=== PATIENT | female | born 1950 | race Caucasian/White ===

== ENCOUNTER → 2016-08-20 08:58 | Day surgery (SDC) | payer OTHER ==
[~2016-08-20 08:58] MED LIST: Acetaminophen TAB* 325 MG PO PRN; Buffered Lidocaine 1% SYR 3ML* 3 ML/SYR SYRINGE INTRADERM ONE; Buffered Lidocaine 1% SYR 3ML* 3 ML/SYR SYRINGE ONE; Cyclopentolate 1% OPTH.SOL* 2 ML BTL ONE; Flurbiprofen 0.03% OPTH.SOL* 2.5 ML BTL ONE; Lidocaine 1% MPF* 2 ML VIAL ONE; Midazolam* 1 MG/ML 2 ML VIAL (2 MG) ONE; Neomycin/Polymy/Dex OPHTH.OIN* 3.5 GM ONE; Phenylephr/Ketorolac 1%/0.3% OPH DROP BTL ONE; Phenylephrine 2.5% OPTH.SOL* 2 ML BTL ONE; Proparacaine 0.5% OPHTH.SOL* 15 ML BTL ONE; Tetracaine 0.5% OPTH.SOL 4 ML* 1 DROP BTL ONE; Tropicamide 1% OPTH.SOL* BTL ONE; fentaNYL* 50 MCG/ML 2 ML VIAL (100 MCG VIAL) ONE
[2016-08-20 10:47] VITALS: BP 85/53
--- NOTE | 2016-08-20 11:18 | OP ---
DATE OF OPERATION: 08/20/2016 LOCATED WITHIN [facility] DATE OF : 1950. SURGEON: Dr. Marty Liao. COUNTRY MANAGER: None. ANESTHESIOLOGIST: Ventura Gumsan MD ANESTHESIA: Topical with intravenous sedation. PRE-OP DIAGNOSIS: Cataract, right eye. POST-OP DIAGNOSIS: Cataract, right eye. OPERATIVE PROCEDURE: Phacoemulsification and cataract extraction with posterior chamber intraocular lens implant, right eye. COMPLICATIONS: None. BLOOD LOSS: None. DESCRIPTION OF PROCEDURE: The patient was brought to the operating room and received a small amount of intra-venous sedation. A drop of Tetracaine was placed in her right eye. She was prepped and draped in the usual sterile fashion for ophthalmic surgery and attention was directed to the right eye where a speculum was placed. A paracentesis was created at the 11 o'clock position and 0.1 cc of 1 percent preservative-free Lidocaine was injected into the anterior chamber followed by DisCoVisc. The eye was digitally stabilized while a 2.75 mm keratome was used to create a triplanar clear corneal incision at the 9 o'clock position. A continuous curvilinear capsulorrhexis was created with a cystotome and Utrata forceps. BSS on a cannula was used to hydrodissect the lens from the capsule. Phacoemulsification was performed in a divide-and- conquer technique to create four fragments which were removed. Residual cortical material was removed with irrigation and aspiration. DisCoVisc was used to inflate the capsular bag and an SN60AT 22.0 diopter lens was folded and inserted into the capsular bag. DisCoVisc was removed using irrigation and aspiration. BSS on a cannula was used to hydrate the corneal stroma and seal the wound. At the end of the case the pupil was round and the lens was centered. The eye was of normal pressure and the wound was water tight. The speculum was removed and topical Maxitrol ointment was placed on the surface of the eye. The eye was closed, patched and shielded and the patient was sent to the recovery room in stable condition with post operative instructions and follow-up appointment given. [id number] #: [id number] MTDD
== END | disposition home or self-care (01) ==
LOC: OREAST 08:58
PROVIDERS: ATTEND Ophthalmology
DX: H25.21 Age-related cataract, morgagnian type, right eye (principal); J44.9 Chronic obstructive pulmonary disease, unspecified; I25.10 Atherosclerotic heart disease of native coronary artery without angina pectoris; M15.0 Primary generalized (osteo)arthritis; I48.0 Paroxysmal atrial fibrillation; I25.2 Old myocardial infarction
CPT/HCPCS: A9270-GY; C9447; J2250; J3010; V2632

== ENCOUNTER 2017-06-02 13:36 | Inpatient (IN) | payer OTHER ==
[2017-06-02 15:25] LABS: Hematocrit 33 % (35-47); Hemoglobin 10.9 g/dl (12.0-16.0); Mean Corpuscular HGB Conc 33 g/dl (31-36); Mean Corpuscular Hemoglobin 30 pg (27-31); Mean Corpuscular Volume 91 fL (80-97); Mean Platelet Volume 7 um3 (7.4-10.4); Red Blood Count 3.62 10^6/ul (4.0-5.4); Red Cell Distribution Width 15 % (10.5-15); White Blood Count 5.4 10^3/ul (3.5-10.8)
[2017-06-02 15:32] LABS: Urine Bacteria Absent (Absent); Urine Bilirubin Negative (Negative); Urine Glucose Negative (Negative); Urine Nitrite Negative (Negative)
[2017-06-02 15:38] LABS: ALT 15 U/L (7-52); AST 19 U/L (13-39); Alkaline Phosphatase 60 U/L (34-104); Anion Gap 7 mmol/L (2-11); BUN/Creatinine Ratio 16.5 (8-20); Blood Urea Nitrogen 14 mg/dL (6-24); CO2 Carbon Dioxide 34 mmol/L (22-32); Calcium 9.3 mg/dL (8.6-10.3); Chloride 91 mmol/L (101-111); EGFR African American 86.6 (>60); EGFR Non-African American 67.3 (>60); Globulin 2.7 g/dL (2-4); Glucose 106 mg/dL (70-100); Potassium 3.7 mmol/L (3.5-5.0); Sodium 132 mmol/L (133-145); Total Protein 6.7 g/dL (6.4-8.9)
[2017-06-02 15:42] LABS: Benzodiazepine Urine Screen None Detected (None Detect)
[2017-06-02 16:14] LABS: TSH (Thyroid Stimulating Horm) 2.18 mcIU/mL (0.34-5.60)
[2017-06-02 16:15] LABS: Acetaminophen < 15 mcg/mL; Alcohol < 10 mg/dL (<10); Salicylate < 2.50 mg/dL (<30)
[2017-06-02] MEDS ORDERED: cefTRIAXone(*) 1 GM in NS 0.9% 50 ML* 50 ML IVPB ONE (16:46)
[2017-06-02] MEDS ORDERED: NS 0.9% 1000 ML* 1,000 ML IV ONE (16:49)
--- NOTE | 2017-06-02 17:25 | RAD ---
INDICATION: Cough, shortness of breath, back pain. COMPARISON: November 14, 2016 TECHNIQUE: Dual energy PA and routine lateral views of the chest were obtained. REPORT: Mild prominence of interstitial markings similar to the prior exam. Patchy rarefaction of the upper lung zone interstitial markings. Elevated lung volumes with increased AP thoracic diameter. No alveolar consolidation, focal pulmonary lesion, pleural effusion, pneumothorax. The heart, pulmonary vasculature, and mediastinal contours are unremarkable. Epigastric and LEFT upper quadrant surgical clips. IMPRESSION: Stigmata of obstructive lung disease. No acute pulmonary or cardiac process evident.
--- NOTE | 2017-06-02 17:29 | RAD ---
Indication: Confusion. Shortness of breath. Comparison: November 22, 2015 CT. Technique: Noncontrast CT vertex of skull through foramen magnum. Report: Mild prominence of the cerebral sulci reflecting involutional change. Focal encephalomalacia at the inferior LEFT occipital lobe without change likely reflecting sequela of previous infarct or other cerebral insult. Decreased density in the periventricular and subcortical white matter while non-specific is most likely due to chronic microangiopathy. No álvarez matter white matter obscuration with associated mass effect or intra-axial extra-axial fluid collection. Unremarkable ventricles and basal cisterns. Unremarkable orbital contents. Indolent thickening of the inner table of the frontal bone. No suspicious calvarial or skull base lesions evident. Clear visualized paranasal sinuses and mastoid air spaces. Unremarkable scalp. IMPRESSION: 1. Stigmata of probable chronic small vessel ischemic disease and chronic small focus of encephalomalacia at the inferior LEFT occipital lobe likely reflecting sequela of a previous infarct. 2. No acute intracranial process evident.
[2017-06-02 17:30] LABS: C Reactive Protein 5.13 mg/L (< 5.00)
[2017-06-02 17:32] LABS: Troponin I 0.01 ng/mL (<0.04)
[2017-06-02] MEDS ORDERED: Ondansetron INJ* 2 MG/ML VIAL IV PRN (18:03)
[2017-06-02] MEDS ORDERED: Acetaminophen TAB* 325 MG PO PRN (18:03)
[2017-06-02] MEDS ORDERED: Cyclobenzaprine TAB* 10 MG PO PRN (18:05)
[2017-06-02] MEDS ORDERED: traMADol TAB* 50 MG PO PRN (18:12)
--- NOTE | 2017-06-02 18:32 | ED ---
Thuy Powell Nilda, scribed for Otto Hatfield MD on 06/02/17 at 1726 . Psychiatric Complaint - HPI Summary HPI Summary: This patient is a 66 year old F presenting to [facility] accompanied by daughters with a chief complaint of abnormal behavior for a week. Per daughter, patient had cataract surgery a few weeks ago and last week patient had low BP. Daughters report inappropriate speech, she says yes to everything, and edema. Per nursing note, patient reports SI and thoughts of hurting . Last year, pt had a similar episode and was found to have MRSA and UTI. Symptoms aggravated and alleviated by nothing. PMHx includes UTI, Renal Calculi , ME. LVL 5 CAVEAT: HPI LIMITED DUE TO ABNORMAL PSYCHOLOGICAL STATE. - History Of Current Complaint Chief Complaint: EDUrogenitalProblems Time Seen by Provider: 06/02/17 16:21 Hx Obtained From: Patient, Family/[employer] - daughters, Medical Records Onset/Duration: Sudden Onset, Lasting Weeks, Still Present Timing: Constant Aggravating Factor(s): Nothing Alleviating Factor(s): Nothing - Allergies/Home Medications Allergies/Adverse Reactions: Allergies Allergy/AdvReac Type Severity Reaction Status Date / Time Medroxyprogesterone Allergy Severe Rash Verified 05/27/17 08:16 [From Provera] Ofloxacin [From Floxin] Allergy Severe Rash Verified 05/27/17 08:16 Home Medications: Home Medications Alendronate (NF) [Fosamax (NF)] 70 mg PO WEEKLY 06/02/17 [History Confirmed ] Cyanocobalamin TAB* [Vitamin B12 TAB*] 1,000 mcg PO DAILY 06/02/17 [History Confirmed 06/02/17] Diltiazem CD CAP* [Cardizem CD CAP*] 180 mg PO DAILY 06/02/17 [History Confirmed 06/02/17] Donepezil TAB* [Aricept 5 MG TAB*] 10 mg PO DAILY 06/02/17 [History Confirmed ] Lisinopril [Lisinopril 2.5 MG-] 2.5 mg PO DAILY 06/02/17 [History Confirmed ] Magnesium Oxide TAB* [MagOx 400 TAB*] 800 mg PO DAILY 06/02/17 [History Confirmed 06/02/17] Propafenone ER (NF) [Rythmol SR (NF)] 225 mg PO BID 06/02/17 [History Confirmed 06/02/17] Tramadol-Acetaminophen [Ultracet] 2 tab PO QID MDD 8 tabs 06/02/17 [History Confirmed 06/02/17] traZODone TAB* [Desyrel TAB*] 50 - 150 mg PO BEDTIME PRN MDD 150 mg 06/02/17 [ History Confirmed 06/02/17] PMH/Surg Hx/FS Hx/Imm Hx Endocrine/Hematology History: Reports: Hx Anticoagulant Therapy, Hx Anemia - HX OF - STARTED ON B12 PER PATIENT FOR THIS Denies: Hx Diabetes Cardiovascular History: Reports: Hx Cardiac Arrest, Hx Hypercholesterolemia, Hx Hypertension - ON MEDICATION FOR, Other Cardiovascular Problems/Disorders - 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 JORDAN Denies: Hx Pacemaker/ICD Respiratory History: Reports: Hx Chronic Obstructive Pulmonary Disease (COPD), Hx Pneumonia, Hx Sleep Apnea, Other Respiratory Problems/Disorders - USES O2 AT NIGHT 2L GI History: Reports: Hx Ulcer - bleeding ulcer 2008 History: Reports: Hx Kidney Infection - HX OF, Hx Kidney Stones - HX OF, Other Problems/Disorders - UTIs- LAST 04/2017 Denies: Hx Renal Disease Musculoskeletal History: Reports: Hx Arthritis - "THROUGHOUT BODY", Hx Rheumatoid Arthritis, Hx Back Problems, Hx Bursitis, Other Musculoskeletal History - osteoporosis//SPINAL STENOSIS- STATES 2 SURGERIES FOR Sensory History: Reports: Hx Cataracts - LEFT EYE, Hx Contacts or Glasses - reading Denies: Hx Hearing Aid Opthamlomology History: Reports: Hx Cataracts - LEFT EYE, Hx Contacts or Glasses - reading Neurological History: Reports: Hx Headaches Psychiatric History: Denies: Hx Panic Disorder - Cancer History Cancer Type, 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 HIP REPLACEMENT BILATERAL. KNEE REPLACEMENT LEFT. GALLBLADDER. APPENDECTOMY. CARDIAC ABLATION. T & A. SHOULDER - RCT. CARPAL TUNNEL - TESFAYE. 3 C SECTIONS. GASTRIC STAPLING - 1982. bilateral hips revision. RIGHT EYE CATARACT-08/2016 Hx Anesthesia Reactions: No Infectious Disease History: No Infectious Disease History: Denies: Traveled Outside the [place] in Last 30 Days - Family History Known Family History: Positive: Cardiac Disease - Social History Alcohol Use: None Substance Use Type: Reports: None Smoking Status (MU): Never Smoked Tobacco Have You Smoked in the Last Year: No Review of Systems - ROS Summary Review of Systems Summary: LEVEL 5 CAVEAT: ROS LIMITED DUE TO PSYCHIATRIC STATE Positive: Edema Positive: Other - abnormal behavior, says "yes" to everything, inappropriate speech, SI, and thoughts of hurting All Other Systems Reviewed And Are Negative: No Physical Exam Vital Signs On Initial Exam: Initial Vitals Temp Pulse Resp BP Pulse Ox 97.5 F 73 20 160/50 99 06/02/17 13:50 06/02/17 13:50 06/02/17 13:50 06/02/17 13:50 06/02/17 13:50 Completion Of Physical Exam Limited Due To: Level 5 - [place] Coma Scale Coma Scale Total: 15 Diagnostics - Vital Signs Vital Signs Temp Pulse Resp BP Pulse Ox 06/02/17 17:00 83 15 94 06/02/17 16:30 78 16 146/70 97 06/02/17 16:00 74 11 131/68 95 06/02/17 15:55 77 12 97 06/02/17 13:50 97.5 F 73 20 160/50 99 - Laboratory Lab Results: Lab Results 06/02/17 06/02/17 06/02/17 Range/Units 14:50 14:50 15:13 WBC (3.5-10.8) 10^3/ul RBC (4.0-5.4) 10^6/ul Hgb (12.0-16.0) g/dl Hct (35-47) % MCV (80-97) fL MCH (27-31) pg MCHC (31-36) g/dl RDW (10.5-15) % Plt Count (150-450) 10^3/ul MPV (7.4-10.4) um3 Neut % (Auto) (38-83) % Lymph % (Auto) (25-47) % [place] % (Auto) (1-9) % Eos % (Auto) (0-6) % Baso % (Auto) (0-2) % Absolute Neuts (auto) (1.5-7.7) 10^3/ul Absolute Lymphs (auto) (1.0-4.8) 10^3/ul Absolute Monos (auto) (0-0.8) 10^3/ul Absolute Eos (auto) (0-0.6) 10^3/ul Absolute Basos (auto) (0-0.2) 10^3/ul Absolute Nucleated RBC 10^3/ul Nucleated RBC % Sodium 132 L (133-145) mmol/L Potassium 3.7 (3.5-5.0) mmol/L Chloride 91 L (101-111) mmol/L Carbon Dioxide 34 H (22-32) mmol/L Anion Gap 7 (2-11) mmol/L BUN 14 (6-24) mg/dL Creatinine 0.85 (0.51-0.95) mg/dL Est GFR ( Amer) 86.6 (>60) Est GFR (Non-Af Amer) 67.3 (>60) BUN/Creatinine Ratio 16.5 (8-20) Glucose 106 H (70-100) mg/dL Calcium 9.3 (8.6-10.3) mg/dL Total Bilirubin 0.40 (0.2-1.0) mg/dL AST 19 (13-39) U/L ALT 15 (7-52) U/L Alkaline Phosphatase 60 (34-104) U/L Troponin I Pending C-Reactive Protein Pending B-Natriuretic Peptide ( - 100) pg/mL Total Protein 6.7 (6.4-8.9) g/dL Albumin 4.0 (3.2-5.2) g/dL Globulin 2.7 (2-4) g/dL Albumin/Globulin Ratio 1.5 (1-3) TSH 2.18 (0.34-5.60) mcIU/mL Urine Color Colorless Urine Appearance Cloudy Urine pH 6.0 (5-9) Ur Specific [place] 1.008 L (1.010-1.030) Urine Protein Negative (Negative) Urine Ketones Negative (Negative) Urine Blood Negative (Negative) Urine Nitrate Negative (Negative) Urine Bilirubin Negative (Negative) Urine Urobilinogen Negative (Negative) Ur Leukocyte Esterase 2+ H (Negative) Urine WBC (Auto) 2+(11-20/hpf) H (Absent) Urine RBC (Auto) Absent (Absent) Ur Squamous Epith Cells Present H (Absent) Urine Bacteria Absent (Absent) Urine Glucose Negative (Negative) Salicylates < 2.50 (<30) mg/dL Urine Opiates Screen None detected (None Detect) Acetaminophen < 15 mcg/mL Ur Barbiturates Screen None detected (None Detect) Ur Phencyclidine Scrn None detected (None Detect) Ur Amphetamines Screen None detected (None Detect) U Benzodiazepines Scrn None detected (None Detect) Urine Cocaine Screen None detected (None Detect) U Cannabinoids Screen None detected (None Detect) Serum Alcohol < 10 (<10) mg/dL 06/02/17 06/02/17 Range/Units 15:13 15:13 WBC 5.4 (3.5-10.8) 10^3/ul RBC 3.62 L (4.0-5.4) 10^6/ul Hgb 10.9 L (12.0-16.0) g/dl Hct 33 L (35-47) % MCV 91 (80-97) fL MCH 30 (27-31) pg MCHC 33 (31-36) g/dl RDW 15 (10.5-15) % Plt Count 213 (150-450) 10^3/ul MPV 7 L (7.4-10.4) um3 Neut % (Auto) 60.0 (38-83) % Lymph % (Auto) 22.9 L (25-47) % [place] % (Auto) 14.2 H (1-9) % Eos % (Auto) 2.0 (0-6) % Baso % (Auto) 0.9 (0-2) % Absolute Neuts (auto) 3.3 (1.5-7.7) 10^3/ul Absolute Lymphs (auto) 1.2 (1.0-4.8) 10^3/ul Absolute Monos (auto) 0.8 (0-0.8) 10^3/ul Absolute Eos (auto) 0.1 (0-0.6) 10^3/ul Absolute Basos (auto) 0 (0-0.2) 10^3/ul Absolute Nucleated RBC 0.01 10^3/ul Nucleated RBC % 0.2 Sodium (133-145) mmol/L Potassium (3.5-5.0) mmol/L Chloride (101-111) mmol/L Carbon Dioxide (22-32) mmol/L Anion Gap (2-11) mmol/L BUN (6-24) mg/dL Creatinine (0.51-0.95) mg/dL Est GFR ( Amer) (>60) Est GFR (Non-Af Amer) (>60) BUN/Creatinine Ratio (8-20) Glucose (70-100) mg/dL Calcium (8.6-10.3) mg/dL Total Bilirubin (0.2-1.0) mg/dL AST (13-39) U/L ALT (7-52) U/L Alkaline Phosphatase (34-104) U/L Troponin I C-Reactive Protein B-Natriuretic Peptide 89 ( - 100) pg/mL Total Protein (6.4-8.9) g/dL Albumin (3.2-5.2) g/dL Globulin (2-4) g/dL Albumin/Globulin Ratio (1-3) TSH (0.34-5.60) mcIU/mL Urine Color Urine Appearance Urine pH (5-9) Ur Specific [place] (1.010-1.030) Urine Protein (Negative) Urine Ketones (Negative) Urine Blood (Negative) Urine Nitrate (Negative) Urine Bilirubin (Negative) Urine Urobilinogen (Negative) Ur Leukocyte Esterase (Negative) Urine WBC (Auto) (Absent) Urine RBC (Auto) (Absent) Ur Squamous Epith Cells (Absent) Urine Bacteria (Absent) Urine Glucose (Negative) Salicylates (<30) mg/dL Urine Opiates Screen (None Detect) Acetaminophen mcg/mL Ur Barbiturates Screen (None Detect) Ur Phencyclidine Scrn (None Detect) Ur Amphetamines Screen (None Detect) U Benzodiazepines Scrn (None Detect) Urine Cocaine Screen (None Detect) U Cannabinoids Screen (None Detect) Serum Alcohol (<10) mg/dL Result Diagrams: 06/02/17 15:13 06/02/17 15:13 Lab Statement: Any lab studies that have been ordered have been reviewed, and results considered in the medical decision making process. - Radiology CXR Xray Interpretation: No Acute Changes Radiology Interpretation Completed By: Radiologist - CXR, per radiologist, reveals stigmata of obstructive lung disease. No acute pulmonary or cardiac process evident. ED physician has reviewed this radiology report and agrees. - CT Brain CT CT Interpretation: No Acute Changes CT Interpretation Completed By: Radiologist - CT brain, per radiologist, reveals 1. Stigmata of probable chronic small vessel ischemic disease and chronic small focus of encephalomalacia at the inferior LEFT occipital lobe likely reflecting sequela of a previous infarct. 2. No acute intracranial process evident. ED physician has reviewed this radiology report and agrees. Course/Dx - Course Course Of Treatment: This patient is a 66 year old F presenting to [facility] accompanied by daughters with a chief complaint of abnormal behavior for a week. Per daughter, patient had cataract surgery a few weeks ago and last week patient had low BP. Daughters reports inappropriate speech, she says yes to everything, and edema. Last year, pt had a similar episode and was found to have MRSA and UTI. PMHx includes UTI, Renal Calculi, [place]. LVL 5 CAVEAT: HPI LIMITED DUE TO ABNORMAL PSYCHOLOGICAL STATE. [1714] consult with Dr. Gonzalez ( hospitalist) who agrees to admit patient. Patient will be admitted to medicine with psych consult. EKG, CXR, CT Brain pending. CXR, per radiologist, reveals stigmata of obstructive lung disease. No acute pulmonary or cardiac process evident. ED physician has reviewed this radiology report and agrees. CT brain, per radiologist, reveals 1. Stigmata of probable chronic small vessel ischemic disease and chronic small focus of encephalomalacia at the inferior LEFT occipital lobe likely reflecting sequela of a previous infarct. 2. No acute intracranial process evident. ED physician has reviewed this radiology report and agrees. - Differential Dx/Clinical Impression Provider Diagnosis: UTI (urinary tract infection), Altered mental status Discharge - Discharge Plan Condition: Stable Disposition: ADMITTED TO [facility] The documentation as recorded by the Thuy soto Nilda accurately reflects the service I personally performed and the decisions made by me, Otto Hatfield MD.
[2017-06-02] MEDS: cefTRIAXone VIAL(*) 1,000 MG in NS 0.9% 50 ML* 50 ML IVPB SCH (18:37)
[2017-06-02] MEDS ORDERED: NS 0.9% w/ 20 Meq KCL 1000 ML* 1,000 ML IV SCH (19:00)
[2017-06-02] MEDS: PROPAFENONE 225 MG PO SCH (20:39)
[2017-06-02] MEDS: Atorvastatin* 20 MG TAB PO SCH (20:39)
[2017-06-02] MEDS: Apixaban* 5 MG TAB PO SCH (20:39)
[2017-06-02] MEDS: traZODone TAB* 50 MG TAB PO PRN (20:40)
--- NOTE | 2017-06-02 22:22 | HP ---
CC: Dr. Toledo * HISTORY AND PHYSICAL: DATE OF ADMISSION: 06/02/17 PRIMARY CARE PROVIDER: Dr. Toledo. ATTENDING PHYSICIAN: Dr. Paige Gonzalez * (report dictated by Mar Kelly NP). CHIEF COMPLAINT: Altered mental status. HISTORY OF PRESENT ILLNESS: This patient is a 66-year-old female with a past medical history significant for coronary artery disease, hypertension, rheumatoid arthritis, COPD, atrial fibrillation, and dementia that primarily developed after a urinary tract infection little over a year ago. In November of 2015, the patient was bacteremic from a urinary tract infection and quite confused. As she was treated, her confusion resolved, yet subsequently, she has followed up with Dr. Sheldon from Neurology. She continues on Aricept. The patient lives alone with her and they say approximately a week ago, the patient started to become confused. She was supposed to have cataract surgery, which was canceled due to low blood pressure. The patient also is complaining of abdominal pain. In the past week, she has become more and more confused. The patient responds yes to everything and has been quite repetitive. She will intermittently go into a set of crying and then subsequently be happy. Today, the patient was also complaining of right flank pain. As the patient's daughters know her history of confusion in the setting of urinary tract infection, they brought her to the emergency room for further evaluation. In the emergency room, the patient did not have an elevated white count. Her urinalysis was slightly positive with 2+ esterase and 2+ wbc's. She was given a dose of ceftriaxone and placed on observation for altered mental status secondary to urinary tract infection. PAST MEDICAL HISTORY: Coronary artery disease, PA, hypertension, rheumatoid arthritis, COPD, skin cancer, atrial fibrillation, dementia. PAST SURGICAL HISTORY: Bilateral hip replacement, bilateral knee replacement, cholecystectomy, appendectomy, tonsillectomy, AFib ablation, shoulder arthroscopy, 3 C-sections, gastric stapling. MEDICATIONS: Home medications include: 1. Mag oxide 800 mg daily. 2. Vitamin B12 1000 mcg oral daily. 3. Aricept 10 mg oral daily. 4. Cardizem CD 180 mg oral daily. 5. Rythmol 225 mg oral twice daily. 6. Toprol-XL 100 mg oral in the evening. 7. Allopurinol 100 mg oral in the morning. 8. Lipitor 20 mg oral at bedtime. 9. Lisinopril 2.5 mg oral daily. 10. Ultracet 2 tablets oral 4 times daily as needed. 11. Hiprex 1 g oral twice daily. 12. Flexeril 10 mg oral twice daily. 13. Eliquis 5 mg oral twice daily. 14. Lasix 40 mg oral in the morning. 15. Fosamax 70 mg oral weekly. 16. Trazodone 50 to 150 mg oral at bedtime as needed. 17. Zaroxolyn 2.5 mg oral Friday and . 18. Breo Ellipta 1 puff inhaled in the morning. ALLERGIES: OFLOXACIN and MEDROXYPROGESTERONE. FAMILY HISTORY: Both parents have had PA. SOCIAL HISTORY: The patient does not smoke or drink alcohol. She lives with her . Surrogate decision maker will be her . She is unable to make decisions for herself. REVIEW OF SYSTEMS: I performed a 14-point review of systems. All the pertinent positives and negatives are mentioned in the history of present illness. The remaining review of systems is negative. PHYSICAL EXAMINATION GENERAL: The patient was alert, appeared to be in no apparent distress. VITAL SIGNS: Temperature 97.5, heart rate 83, respiratory rate 15, blood pressure 120/76, oxygen saturation 94%. HEENT: Normocephalic/atraumatic. Pupils are equal and reactive to light. Extraocular movements were intact. NECK: Neck is supple. There is no lymphadenopathy noted. RESPIRATORY: There was no accessory muscle use. Lungs are clear to auscultation. CARDIAC: S1, S2 were crisp. There were no murmurs, rubs, or gallops heard. ABDOMEN: Soft, nontender, nondistended. There are bowel sounds x4. EXTREMITIES: There was no lower extremity edema. DP and PT pulses were 2+ and symmetric. MUSCULOSKELETAL: No clubbing or cyanosis noted. The patient exhibited equal strength in all extremities. NEURO: Cranial nerves II through XII are intact. The patient moves all extremities. Lower extremities were intact to light touch. PSYCH: The patient is alert and oriented to self and time, and intermittently to place. SKIN: There were no rashes or abnormalities seen. DIAGNOSTIC STUDIES/LAB DATA: Sodium 132, potassium 3.7, chloride 91, CO2 34, BUN 14, creatinine 0.85, glucose 106. Liver function tests within normal limits. Troponin 0.01. CRP 5.1. BNP 89. TSH 2.1. White blood cell count 5.4 , hemoglobin 10.9, hematocrit 33, platelet count 213. Urinalysis is 1.008 specific gravity, 2+ leukocyte esterase, 2+ wbc's, bacteria absent, squamous epithelial cells. Tox screen was completely negative. Chest x-ray: PA and lateral shows stigmata of obstructive lung disease. No acute pulmonary or cardiac process evident. CT brain without contrast: Stigmata of probable small vessel ischemic disease and chronic small focus of encephalomalacia of the inferior left occipital lobe likely reflecting sequela of previous infarct. No acute intracranial process evident. IMPRESSION: This is a 66-year-old female with past medical history significant for urinary tract infection, dementia, hypertension, and atrial fibrillation, on Eliquis, who presents to the emergency room with altered mental status and found to have urinary tract infection. ASSESSMENT AND PLAN: 1. Altered mental status. Given the patient's history of confusion in the setting of urinary tract infection, it is likely this is what is happening again. Even though her urinalysis does not look that positive, we will wait for culture, yet in the meantime, she will be placed on ceftriaxone empirically. The patient does give herself her own medications and there is a possibility of some sort of overdose, yet I have searched through her medication bottles and it appears that all the medications have adequate quantities. The patient does take tramadol and Aricept and it is possible that maybe she took more of these medications. The patient will be restarted on her home medications according to previous Neurology and Cardiology notes. Tramadol will be given only as needed for pain and trazodone will continue at night to help her sleep. She will have neuro checks every 4 hours and will be placed in close proximity to the nurses' station. I will also give her a liter of fluid as she appears to be slightly dehydrated. Lasix will be held tomorrow morning. 2. Atrial fibrillation. Rythmol and Toprol will continue as well as Eliquis. The patient is rate controlled and in normal sinus rhythm. 3. Hypertension. The patient's blood pressure is controlled. Lisinopril will continue at lower dose. Zaroxolyn was recently decreased just Friday and and this will be held for the time being and restarted at discharge. 4. Chronic obstructive pulmonary disease. Breo Ellipta will continue. 5. Dementia. Aricept will continue. I discussed with the family that it is possible that the delirium could worsen during her hospitalization. 6. DVT prophylaxis. The patient is on Eliquis. 7. Fluids, electrolytes, and nutrition. She will have a regular diet. TIME SPENT: Time for this admission was 60 minutes, and 35 minutes was spent with the patient and the family discussing medications, past medical history, and the events leading up to her arrival in the emergency room. Reviewed by MAR KELLY NP 06/03/2017 1130 [id number] #: [id number] MTDD
[2017-06-03] MEDS ORDERED: LORazepam INJ* 2 MG/ML 1 ML VIAL IV PUSH ONE ×2 (02:45→18:00)
[2017-06-03 07:16] LABS: Hematocrit 31 % (35-47); Hemoglobin 9.9 g/dl (12.0-16.0); Mean Corpuscular HGB Conc 32 g/dl (31-36); Mean Corpuscular Hemoglobin 30 pg (27-31); Mean Corpuscular Volume 92 fL (80-97); Mean Platelet Volume 7 um3 (7.4-10.4); Red Cell Distribution Width 15 % (10.5-15); White Blood Count 6.8 10^3/ul (3.5-10.8)
[2017-06-03 07:42] LABS: Calcium 8.4 mg/dL (8.6-10.3); EGFR African American 100.1 (>60); EGFR Non-African American 77.8 (>60); Potassium 3.4 mmol/L (3.5-5.0)
[2017-06-03] MEDS: Apixaban* 5 MG TAB PO SCH ×2 (08:47→23:47)
[2017-06-03] MEDS: Magnesium Oxide TAB* 400 MG PO SCH (08:47)
[2017-06-03] MEDS: Cyanocobalamin TAB* 500 MCG PO SCH (08:47)
[2017-06-03] MEDS: Lisinopril TAB* 5 MG PO SCH (08:48)
[2017-06-03] MEDS: Allopurinol TAB* 100 MG PO SCH (08:48)
[2017-06-03] MEDS: Donepezil TAB* 5 MG PO SCH (08:48)
[2017-06-03] MEDS: Diltiazem CD CAP* 180 MG PO SCH (08:48)
[2017-06-03] MEDS: PROPAFENONE 225 MG PO SCH ×2 (08:49→23:47)
--- NOTE | 2017-06-03 08:57 | RAD ---
HISTORY: Difficulty speaking COMPARISONS: June 02, 2017 TECHNIQUE: Multiple contiguous axial CT scans were obtained of the head without intravenous contrast. FINDINGS: HEMORRHAGE/INFARCT: There is no hemorrhage or acute infarct. MASSES/SHIFT: There is no mass or shift. EXTRA-AXIAL SPACES: There are no extra-axial fluid collections. SULCI AND VENTRICLES: The sulci and ventricles are normal in size and position for the patient's stated age. CEREBRUM: There is mild hypoattenuation of the periventricular and subcortical white matter. There is stable left occipital encephalomalacia. BRAINSTEM: There are no focal parenchymal abnormalities. CEREBELLUM: There are no focal parenchymal abnormalities. VESSELS: The vessels are grossly normal. PARANASAL SINUSES: The paranasal sinuses are clear. ORBITS: The orbits are unremarkable. BONES AND SOFT TISSUE: No bone or soft tissue abnormalities are noted. OTHER: None IMPRESSION: STABLE CHRONIC CHANGES. NO ACUTE INTRACRANIAL PATHOLOGY.
[2017-06-03] MEDS ORDERED: Fluticasone/Vilanterol MDI(NF) 100/25 MDI INH SCH (09:00)
[2017-06-03] MEDS ORDERED: Furosemide TAB* 40 MG PO SCH (09:00)
[2017-06-03] MEDS ORDERED: QUEtiapine TAB* 25 MG PO PRN (09:14)
--- NOTE | 2017-06-03 10:51 | PN ---
Subjective Date of Service: 06/03/17 Interval History: Patient seen and examined at bedside. Patient continues to have tearful episodes, non-stop talking, illogical statements as well as a period of aphasia this morning now resolved. Repeat Head CT negative. Patient does not offer complaints but responds yes to every question regarding pain. Per family and PCP this is very different than baseline and from how she acted when she was here a year ago with bacteremia from a UTI. Slight temperature overnight. She received Ativan to help her sleep as she was awake all night. Family History: Unchanged from Admission Social History: Unchanged from Admission Past Medical History: Unchanged from Admission Objective Active Medications: Acetaminophen (Tylenol Tab*) 975 mg PO Q8H PRN Allopurinol (Zyloprim Tab*) 100 mg PO QAM VALE Apixaban (Eliquis*) 5 mg PO BID VALE Atorvastatin Calcium (Lipitor*) 20 mg PO BEDTIME VALE Cyanocobalamin (Vitamin B12 Tab*) 1,000 mcg PO DAILY VALE Cyclobenzaprine HCl (Flexeril Tab*) 10 mg PO BID PRN Diltiazem HCl (Cardizem Cd Cap*) 180 mg PO DAILY VALE Donepezil HCl (Aricept Tab*) 10 mg PO DAILY VALE Fluticasone/Vilanterol (Breo Ellipta Mdi 100/25(Nf)) 1 puff INH QAM VALE Furosemide (Lasix Tab*) 40 mg PO QAM VALE Ceftriaxone Sodium 1,000 mg/ (Sodium Chloride) 50 mls @ 200 mls/hr IVPB Q24H VALE Lisinopril (Prinivil Tab*) 2.5 mg PO DAILY VALE Magnesium Oxide (Magox 400 Tab*) 800 mg PO DAILY VALE Metoprolol Succinate (Toprol Xl Tab*) 100 mg PO QPM VALE Propafenone HCl (Rythmol Sr (Nf)) 225 mg PO BID VALE Quetiapine Fumarate (Seroquel Tab*) 12.5 mg PO TID PRN Tramadol HCl (Ultram*) 25 mg PO Q8H PRN Trazodone HCl (Desyrel Tab*) 50 mg PO BEDTIME PRN Vital Signs Temp Pulse Resp BP Pulse Ox 98.6 F 95 20 144/60 95 06/03/17 08:41 06/03/17 07:44 06/03/17 08:00 06/03/17 07:44 06/03/17 07:44 Oxygen Devices in Use Now: None Appearance: sitting up in bed, NAD Eyes: No Scleral Icterus, PERRLA Ears/Nose/Mouth/Throat: NL Teeth, Lips, Gums Neck: NL Appearance and Movements; NL JVP Respiratory: Symmetrical Chest Expansion and Respiratory Effort, Clear to Auscultation Cardiovascular: NL Sounds; No Murmurs; No JVD, RRR, No Edema Abdominal: - - slight non-specific tenderness Extremities: No Edema Skin: No Rash or Ulcers Neurological: NL Muscle Strength and Tone, - - Alert and oriented to self only Lines/Tubes/Other Access: Clean, Dry and Intact Peripheral IV Nutrition: Taking PO's Result Diagrams: 06/03/17 06:41 06/03/17 06:41 Additional Lab and Data: . Assess/Plan/Problems-Billing Patient is a 66 y/o F w/ hx of CAD, atrial fibrillation (on Eliquis), kidney stones, UTI w/ encephalopathy, COPD, rheumatoid arthritis who presented to the Ed with increased confusion found to have a UTI. - Patient Problems (1) Altered mental status Comment: Suspect agiated delirium in the setting of dementia and UTI. Repeat head CT this AM normal. Will check EEG with episode of aphasia. Neurology consulted. Start PRN Seroquel. Limit Tramadol. Continue Neuro checks and frequent reorientation. (2) UTI (urinary tract infection) Comment: Continue Ceftriaxone and await culture results. Will check renal ultrasound given hx of stones and intermittent c/o of abdominal pain. (3) Atrial fibrillation Comment: NSR. Continue Cardizem, Toprol, and Propafenone. Continue Eliquis for anticoagulation. (4) HTN (hypertension) Comment: Controlled. Continue Toprol, Cardizem, Lisinopril. (5) COPD (chronic obstructive pulmonary disease) Comment: Continue home inhalers. (6) Dementia Comment: Continue Aricept and supportive care. (7) DVT prophylaxis Comment: Continue Eliquis. (8) Full code status Status and Disposition: Change to inpatient for acute delirium in the setting of dementia with UTI. Plan to discharge home when stable.
[2017-06-03] MEDS: Potassium Chlor TAB* 20 MEQ TAB.ER PO SCH ×2 (11:52→15:50)
--- NOTE | 2017-06-03 12:24 | RAD ---
INDICATION: Abdominal pain, urinary tract infection, history of kidney stones. COMPARISON: Comparison is made with a prior renal ultrasound from November 23, 2015. TECHNIQUE: Multiple real-time images of the kidneys were obtained. FINDINGS: The kidneys are normal in shape and echogenicity. The right kidney appears small in size. The right kidney measured 7.7 x 3.9 x 5.2 cm and the left kidney measured 10.2 x 5.3 x 4.5 cm. No hydronephrosis is seen. There is a small hypoechoic nodule arising from the upper to midportion of the right kidney which is better seen on the prior study and likely represents a cyst. This measures 1.2 x 1.4 x 1.5 cm. IMPRESSION: 1. NO EVIDENCE FOR HYDRONEPHROSIS. 2. SMALL RIGHT KIDNEY.
[2017-06-03] MEDS: Mometasone/Formoter 200/5 MDI INH SCH ×2 (15:50→20:06)
[2017-06-03] MEDS: cefTRIAXone VIAL(*) 1,000 MG in NS 0.9% 50 ML* 50 ML IVPB SCH (18:30)
[2017-06-03] MEDS: Metoprolol Succinate XL TAB* 100 MG PO SCH (18:37)
--- NOTE | 2017-06-03 21:10 | RAD ---
Indication: Worsening confusion for one week. Aphasia and facial twitching. Comparison: June 03, 2017 CT and December 29, 2015 MRI. Technique: [employer] 1.5 Tiana CU803W with GEM suite. MRI brain without contrast. Report: Motion artifact degrades image quality. Diffusion series is negative for acute or subacute ischemia. Susceptibility series is negative for stigmata of hemosiderin deposition to indicate previous hemorrhage. Unremarkable cerebral sulci, ventricles, and basal cisterns. Unchanged periventricular and subcortical white matter hyperintense lesions with sales solutions representative dominant lesion at the RIGHT frontal lobe white matter measuring 1.1 cm maximum dimension. Negative for associated mass effect. Unchanged small focus of encephalomalacia at the LEFT occipital lobe white matter inferiorly. Negative for intra or extra-axial fluid collections. Preserved major intracranial flow-voids. Unremarkable orbital contents. Clear paranasal sinuses and mastoid air spaces. No suspicious calvarial or skull base lesions evident. Unremarkable scalp. IMPRESSION: 1. While not entirely specific the unchanged bilateral periventricular and subcortical white matter lesions of the frontal and parietal lobes most likely represent chronic small vessel ischemic disease. In the appropriate clinical setting the differential would include demyelinating lesions or sequela of previous foci of inflammation. 2. Unchanged small focus of encephalomalacia at the LEFT occipital lobe. 3. No acute intracranial process evident.
--- NOTE | 2017-06-03 21:13 | CONS ---
CC: Dr. Ivette Sheldon * NEUROLOGY CONSULTATION: DATE OF CONSULT: 06/03/17 REFERRING PROVIDER: Julissa Kelly NP PRIMARY CARE PROVIDER: Janes Toledo MD LOCATION: She is an inpatient in room 417. REASON FOR CONSULT: Mental status changes. HISTORY OF PRESENT ILLNESS: Jessica Cotto is a 66-year-old woman, who was admitted to the hospital yesterday with a change in her mental state. Two of her daughters were in the room. They say that gradually over about last 3 to perhaps 4 days, she started becoming confused. It became quite profound by last night and after refusing to come to the hospital for better part of the day , she presented. She has been very confused ever since. She talks almost nonstop, but there were periods of time where she seemed not to able to get the words out. She makes bizarre statements and at times has apparently had visual hallucinations, seeing angels and relatives on the TV set. She has not had any convulsions or episodes of unresponsiveness, although the daughters are somewhat in disagreement about whether or not she may be unaware of her surroundings at times. She has a history of dementia and had pretty severe delirium when she had urinary sepsis a year ago. I had spoken with Dr. Ivette Sheldon, who had seen her in followup and said that it took quite a while to gradually improve when she was left with some cognitive impairment, but was not as profound as immediately after hospitalization with improvement in her MoCA score. Her presentation now is similar to when she was uroseptic last time according to the daughters. She does have evidence of urinary tract infection on this admission and urine culture today grew out enterobacter. She has not had a fever or elevated white blood cell count, however. PAST MEDICAL HISTORY: Notable for coronary artery disease; hypertension; rheumatoid arthritis; COPD; atrial fibrillation, on chronic anticoagulation; bilateral hip replacements; bilateral knee replacements; gastric stapling. MEDICATIONS: At home, consist of: 1. Magnesium oxide 800 mg p.o. q. day. 2. Vitamin B12 1000 mcg p.o. q. day. 3. Aricept 10 mg p.o. q. day. 4. Cardizem 180 mg p.o. q. day. 5. Rythmol 225 mg p.o. b.i.d. 6. Toprol-XL 100 mg p.o. q.h.s. 7. Allopurinol 100 mg p.o. q.a.m. 8. Lipitor 20 mg p.o. q. day. 9. Lisinopril 2.5 mg p.o. q. day. 10. Ultracet 2 tablets p.o. four times a day p.r.n. joint pain. 11. Flexeril 10 mg p.o. b.i.d. 12. Eliquis 5 mg p.o. q. day. 13. Lasix 40 mg p.o. q. day. 14. Fosamax 70 mg p.o. q. week. 15. Trazodone 50 mg q.h.s. 16. Zaroxolyn 2.5 mg p.o. twice a week. ALLERGIES: She is allergic to OFLOXACIN and reportedly MEDROXYPROGESTERONE. SOCIAL HISTORY: She is an ex-smoker. Does not drink alcohol. REVIEW OF SYSTEMS: From the patient and her 2 daughters, but the patient is very inconsistent and unreliable. She says yes to headache but then later no. Her daughters say that she has not had any falls. They say she usually uses a walker at home. She has hip pain and back pain, for which she takes a tramadol. As far as her daughters know, there has not been any change in medications at home prior to this hospitalization, but they are not sure as they do not live with her. There has been no change in breathing or intestinal problems that the patient or the daughters are aware of. PHYSICAL EXAM: She has been afebrile throughout her entire hospital stay with most recent temperature 98.6 orally. Blood pressure 140/60, heart rate is running in the 90s and is irregularly irregular, respiratory rate 20, and oxygen saturation is 95% on room air. Neck is supple. Heart is in irregular rhythm and I do not hear murmurs. Skin is warm and dry. Oral mucosa is moist and atraumatic. There are no cervical bruits. Neurologically, she is semi-cooperative. Pupils react equally from 3 to about 2.5 mm. Funduscopic exam reveals sharp discs and arteriolar tortuosity. Eye movements seem normal. Visual lynne are full to finger counting. Facial musculature is symmetric. Speech is clear and repetitive. Motor exam does not reveal any change in muscle tone. She seems to have reasonably good strength in all limbs symmetrically. There is no myoclonus, asterixis, or tremor. Reflexes diffusely hypoactive, absent at the knees and ankles. Plantar responses extensor bilaterally. She talks almost nonstop. At times, she will string a few sensible sentences together and responds to questions and at other times produces spontaneous bizarre comments and sentences. She does not seem to be aphasic, however. Comprehension is hard to assess, but she is alert if not hyperalert. DIAGNOSTIC STUDIES/LAB DATA: Includes a CT of the brain which I reviewed as well as one from yesterday. There are hypodensities in multiple deep white matter areas consistent with old subcortical infarctions as well as one in the left occipital area which looks old. Compared to an MRI scan from 2016, I do not see any obvious differences. Other laboratory data notable for a chemistry profile on admission notable for a sodium of 132, carbon dioxide of 34, otherwise unremarkable chemistry profile. CRP on admission was 5.13 and calcium is 9.3. Liver enzymes normal. TSH is normal at 2.18. Her urine is notable for 2+ leukocyte esterase and 2+ white blood cells. Toxicology screen was negative and serum alcohol less than 10. Urine culture today is growing out enterobacter. IMPRESSION AND PLAN: Impression is that of a somewhat agitated delirium in a patient with at least mild cognitive impairment if not mild dementia. So far, the only cause identified is a urinary tract infection but without fever or elevated white blood cell count. Recommended MRI scan of the brain to look for new infarction or any evidence to suggest encephalitis. If she does not improve, she may need a lumbar puncture. I will check an ammonia level and vitamin B12 level as well. I discussed my initial impression with Julissa Kelly, YAMILE, and also with her daughters. [id number]/[facility] #: [id number] YEHUDA
[2017-06-03] MEDS: traZODone TAB* 50 MG TAB PO PRN (23:47)
[2017-06-03] MEDS: Atorvastatin* 20 MG TAB PO SCH (23:47)
[2017-06-04] MEDS: Mometasone/Formoter 200/5 MDI INH SCH ×2 (08:02→20:50)
--- NOTE | 2017-06-04 08:06 | PN ---
Subjective Date of Service: 06/04/17 Interval History: Patient seen and examined at bedside. Patient woke up around 430am asking appropriate questions and more like herself. She now responds completely appropriately. She denies pain at this time and is oriented. Family History: Unchanged from Admission Social History: Unchanged from Admission Past Medical History: Unchanged from Admission Objective Active Medications: Acetaminophen (Tylenol Tab*) 975 mg PO Q8H PRN Allopurinol (Zyloprim Tab*) 100 mg PO QAM VLAE Apixaban (Eliquis*) 5 mg PO BID VALE Atorvastatin Calcium (Lipitor*) 20 mg PO BEDTIME VALE Cyanocobalamin (Vitamin B12 Tab*) 1,000 mcg PO DAILY VALE Diltiazem HCl (Cardizem Cd Cap*) 180 mg PO DAILY VALE Donepezil HCl (Aricept Tab*) 10 mg PO DAILY VALE Furosemide (Lasix Tab*) 40 mg PO QAM VALE Ceftriaxone Sodium 1,000 mg/ (Sodium Chloride) 50 mls @ 200 mls/hr IVPB Q24H VALE Lisinopril (Prinivil Tab*) 2.5 mg PO DAILY VALE Magnesium Oxide (Magox 400 Tab*) 800 mg PO DAILY VALE Metoprolol Succinate (Toprol Xl Tab*) 100 mg PO QPM VALE Mometasone Furoate/Formoterol Fumar (Dulera 200/5 Mdi*) 2 puff INH BID VALE Propafenone HCl (Rythmol Sr (Nf)) 225 mg PO BID VALE Trazodone HCl (Desyrel Tab*) 50 mg PO BEDTIME PRN Vital Signs Temp Pulse Resp BP Pulse Ox 99.2 F 78 17 123/68 96 06/04/17 04:21 06/04/17 04:21 06/04/17 04:21 06/04/17 04:21 06/04/17 04:21 Oxygen Devices in Use Now: None Appearance: sitting up in bed, NAD Eyes: No Scleral Icterus, PERRLA Ears/Nose/Mouth/Throat: NL Teeth, Lips, Gums Neck: NL Appearance and Movements; NL JVP Respiratory: Symmetrical Chest Expansion and Respiratory Effort, Clear to Auscultation Cardiovascular: NL Sounds; No Murmurs; No JVD, RRR Abdominal: NL Sounds; No Tenderness; No Distention Extremities: No Edema Skin: No Rash or Ulcers Neurological: Alert and Oriented x 3, NL Muscle Strength and Tone Lines/Tubes/Other Access: Clean, Dry and Intact Peripheral IV Nutrition: Taking PO's Result Diagrams: 06/03/17 06:41 06/03/17 06:41 Additional Lab and Data: . Microbiology and Other Data: Microbiology 06/03/17 00:30 Nasal Screen MRSA (PCR)([facility]ER) - Final Nasal Mrsa Positive Assess/Plan/Problems-Billing Patient is a 66 y/o F w/ hx of CAD, atrial fibrillation (on Eliquis), kidney stones, UTI w/ encephalopathy, COPD, rheumatoid arthritis who presented to the Ed with increased confusion found to have a UTI. - Patient Problems (1) Altered mental status Comment: Beginning to resolve. Appreciate neuro input. MRI normal. Continue to hold tramadol and flexeril. Suspect secondary to UTI. (2) UTI (urinary tract infection) Comment: Culture growing entereobacter. Continue ceftriaxone and await sensitivities. Renal U/S negative for any hydronephrosis or stones. (3) Atrial fibrillation Comment: NSR. Continue Cardizem, Toprol, and Propafenone. Continue Eliquis for anticoagulation. (4) HTN (hypertension) Comment: Controlled. Continue Toprol, Cardizem, Lisinopril. (5) COPD (chronic obstructive pulmonary disease) Comment: Continue home inhalers. (6) Dementia Comment: Continue Aricept and supportive care. (7) DVT prophylaxis Comment: Continue Eliquis. (8) Full code status Status and Disposition: Change to inpatient for acute delirium in the setting of dementia with UTI. PT/ OT eval and await sensitivities. Discharge home when stable.
[2017-06-04] MEDS: PROPAFENONE 225 MG PO SCH ×2 (09:39→20:52)
[2017-06-04] MEDS: Apixaban* 5 MG TAB PO SCH ×2 (09:41→20:52)
[2017-06-04] MEDS: Furosemide TAB* 40 MG PO SCH (09:41)
[2017-06-04] MEDS: Magnesium Oxide TAB* 400 MG PO SCH (09:42)
[2017-06-04] MEDS: Allopurinol TAB* 100 MG PO SCH (09:43)
[2017-06-04] MEDS: Diltiazem CD CAP* 180 MG PO SCH (09:46)
[2017-06-04] MEDS: Lisinopril TAB* 5 MG PO SCH (09:46)
[2017-06-04] MEDS: Donepezil TAB* 5 MG PO SCH (09:48)
[2017-06-04] MEDS: Cyanocobalamin TAB* 500 MCG PO SCH (09:52)
[2017-06-04] MEDS: cefTRIAXone VIAL(*) 1,000 MG in NS 0.9% 50 ML* 50 ML IVPB SCH (17:47)
[2017-06-04] MEDS: Metoprolol Succinate XL TAB* 100 MG PO SCH (17:47)
--- NOTE | 2017-06-04 20:44 | CONS ---
CC: Ivette Sheldon MD * NEUROLOGY CONSULT NOTE: DATE OF CONSULT: 06/04/17 HOSPITALIST: Julissa Klely NP LOCATION: She is an inpatient, in room 405. CHIEF COMPLAINT: Delirium. INTERVAL HISTORY: Since yesterday, Jessica is doing much much better. She is speaking quite sensibly with fluent sentences and seemed to have good attention and concentration. She does not really remember much of yesterday or the day before. Her daughter is present in the room and it is like night and day. She has no complaints at this point in time. MEDICATIONS: Reviewed and she remains on: 1. Allopurinol 100 mg p.o. q.a.m. 2. Eliquis 5 mg p.o. b.i.d. 3. Atorvastatin 20 mg p.o. daily. 4. Ceftriaxone 1000 mg IV q.24 hours. 5. Vitamin B12, 1000 mcg p.o. daily. 6. Diltiazem 180 mg p.o. daily. 7. Donepezil 10 mg p.o. daily. 8. Furosemide 40 mg p.o. daily. 9. Lisinopril 2.5 mg p.o. daily. 10. Metoprolol XL 100 mg p.o. daily. 11. Propafenone 225 mg p.o. b.i.d. 12. Trazodone 50 mg p.o. q.h.s. Yesterday, cyclobenzaprine, lorazepam, and tramadol were stopped. PHYSICAL EXAMINATION: Temperature 98.5, blood pressure 125/60, heart rate is 81 and regular, respiratory rate 17, and oxygen saturation 96% on room air. She is alert and in good spirits. She is oriented to person, place, and time. She does not recall anything of the last 2 days. Language is fluent. LABORATORY DATA: Notable for an ammonia level yesterday of 49, vitamin B12 level 1089. CBC notable for hemoglobin of 10.9 and a normal white blood cell count of 6.8. IMPRESSION: Agitated delirium, which seems to have resolved. The only etiology we could find was her urinary tract infection, but treating it seems to have helped. I did stop tramadol and cyclobenzaprine, but she had taken those chronically and apparently did not have problems with them at home. I do not have any new recommendations at this point. If she has recurrence of her delirium or other significant mental status changes, I would be happy to get involved again. [id number]/[facility] #: [id number] YEHUDA
[2017-06-04] MEDS: Atorvastatin* 20 MG TAB PO SCH (20:52)
--- NOTE | 2017-06-05 05:05 | EEG ---
ELECTROENCEPHALOGRAPHY: DATE OF STUDY: 06/03/17 LOCATION: She is an inpatient in room 417. REFERRING PROVIDER: Julissa Kelly NP CLINICAL PROBLEM: Agitated delirium, episodes of unresponsiveness, rule out seizures. MEDICATIONS: Include: 1. Ceftriaxone. 2. Apixaban. 3. Allopurinol. 4. Diltiazem. 5. Lisinopril. 6. Donepezil. 7. Lorazepam. 8. Trazodone. 9. Tramadol. REPORT: This 16-channel EEG is fraught with movement artifact early in the tracing as the patient appears to be agitated making bizarre statements and pulling her sheets over her head. However, there are quiet portions of the tracing subsequently, which shows diffuse slow activity mainly in the delta range with intermingled fast components centrally and bifrontally. There is no clear discernible alpha rhythm. Eye movement artifact as well as muscle artifact and movement artifact is seen not infrequently. The patient makes bizarre statements, cries, and repeatedly pulls the sheets over her head. Again , quieter portions revealed diffuse slowing, which looks symmetric. There are no focal, lateralized, or epileptiform abnormalities. Sleep stages are not recognized. CLINICAL IMPRESSION: Abnormal EEG due to generalized slowing and disorganization of background rhythms consistent with diffuse cerebral dysfunction. This is a technically limited study because of the patient's movement and agitation, but within limits of the study, no epileptiform features are identified. [id number]/[facility] #: [id number] MTDDonnell
[2017-06-05] MEDS: Mometasone/Formoter 200/5 MDI INH SCH ×2 (07:41→20:22)
[2017-06-05] MEDS: Diltiazem CD CAP* 180 MG PO SCH (08:33)
[2017-06-05] MEDS: Allopurinol TAB* 100 MG PO SCH (08:34)
[2017-06-05] MEDS: Cyanocobalamin TAB* 500 MCG PO SCH (08:34)
[2017-06-05] MEDS: Donepezil TAB* 5 MG PO SCH (08:34)
[2017-06-05] MEDS: Apixaban* 5 MG TAB PO SCH ×2 (08:35→22:43)
[2017-06-05] MEDS: Magnesium Oxide TAB* 400 MG PO SCH (08:35)
[2017-06-05] MEDS: Furosemide TAB* 40 MG PO SCH (08:35)
[2017-06-05] MEDS: Lisinopril TAB* 5 MG PO SCH (08:35)
[2017-06-05] MEDS: PROPAFENONE 225 MG PO SCH ×2 (08:36→22:43)
--- NOTE | 2017-06-05 10:11 | PN ---
Subjective Date of Service: 06/05/17 Interval History: Patient seen and examined at bedside. Denies fever, chills, shortness of breath , chest discomfort, N/V/D. Pt's family is concerned that she appears to be more confused today, then she was yesterday. They would like her to stay one more day. Family History: Unchanged from Admission Social History: Unchanged from Admission Past Medical History: Unchanged from Admission Objective Active Medications: Acetaminophen (Tylenol Tab*) 975 mg PO Q8H PRN Reason: PAIN Allopurinol (Zyloprim Tab*) 100 mg PO QAM VALE Apixaban (Eliquis*) 5 mg PO BID VALE Atorvastatin Calcium (Lipitor*) 20 mg PO BEDTIME VALE Cyanocobalamin (Vitamin B12 Tab*) 1,000 mcg PO DAILY VALE Diltiazem HCl (Cardizem Cd Cap*) 180 mg PO DAILY VALE Donepezil HCl (Aricept Tab*) 10 mg PO DAILY VALE Furosemide (Lasix Tab*) 40 mg PO QAM VALE Ceftriaxone Sodium 1,000 mg/ (Sodium Chloride) 50 mls @ 200 mls/hr IVPB Q24H VALE Lisinopril (Prinivil Tab*) 2.5 mg PO DAILY VALE Magnesium Oxide (Magox 400 Tab*) 800 mg PO DAILY VALE Metoprolol Succinate (Toprol Xl Tab*) 100 mg PO QPM VALE Mometasone Furoate/Formoterol Fumar (Dulera 200/5 Mdi*) 2 puff INH BID VALE Propafenone HCl (Rythmol Sr (Nf)) 225 mg PO BID VALE Trazodone HCl (Desyrel Tab*) 50 mg PO BEDTIME PRN Reason: SLEEP Vital Signs 06/04/17 06/04/17 06/04/17 14:17 19:58 20:00 Temperature 98.1 F 97.8 F Pulse Rate 81 80 Respiratory 20 18 20 Rate Blood Pressure 121/55 124/52 (mmHg) O2 Sat by Pulse 97 95 Oximetry 06/04/17 06/04/17 06/05/17 20:51 23:38 03:27 Temperature 98.6 F 97.5 F Pulse Rate 81 78 79 Respiratory 20 16 16 Rate Blood Pressure 110/46 124/60 (mmHg) O2 Sat by Pulse 97 94 94 Oximetry 06/05/17 06/05/17 06/05/17 07:20 07:34 07:42 Temperature Pulse Rate 70 73 74 Respiratory 16 16 Rate Blood Pressure 133/67 (mmHg) O2 Sat by Pulse 98 97 96 Oximetry 06/05/17 07:56 Temperature 98.6 F Pulse Rate Respiratory Rate Blood Pressure (mmHg) O2 Sat by Pulse Oximetry Oxygen Devices in Use Now: None Appearance: NAD, laying in bed Ears/Nose/Mouth/Throat: Mucous Membranes Moist Neck: NL Appearance and Movements; NL JVP Respiratory: Symmetrical Chest Expansion and Respiratory Effort, Clear to Auscultation Cardiovascular: NL Sounds; No Murmurs; No JVD, RRR Abdominal: NL Sounds; No Tenderness; No Distention Extremities: No Edema Skin: No Rash or Ulcers Neurological: Alert and Oriented x 3, NL Muscle Strength and Tone Lines/Tubes/Other Access: Clean, Dry and Intact Peripheral IV - site benign Nutrition: Taking PO's Result Diagrams: 06/03/17 06:41 06/03/17 06:41 Microbiology and Other Data: Microbiology 06/03/17 00:30 Nasal Screen MRSA (PCR)(TYLER) - Final Nasal Mrsa Positive Assess/Plan/Problems-Billing Ms. Cotto is a 66 y/o F w/ hx of CAD, atrial fibrillation (on Eliquis), kidney stones, UTI w/ encephalopathy, COPD, rheumatoid arthritis who presented to the emergency room with increased confusion found to have a UTI. - Patient Problems (1) Altered mental status Code(s): R41.82 - ALTERED MENTAL STATUS, UNSPECIFIED SNOMED Code(s): 372272606 Comment: - Beginning to resolve, suspect secondary to UTI. - Appreciate neuro input, MRI normal. - Continue to hold tramadol and flexeril. (2) UTI (urinary tract infection) Comment: - Culture growing entereobacter. - Renal U/S negative for any hydronephrosis or stones. - Continue ceftriaxone and await sensitivities. (3) Atrial fibrillation Code(s): I48.91 - UNSPECIFIED ATRIAL FIBRILLATION SNOMED Code(s): 56605852 Comment: - NSR at this time. - Continue Cardizem, Toprol, Propafenone and Eliquis for anticoagulation. (4) HTN (hypertension) Code(s): I10 - ESSENTIAL (PRIMARY) HYPERTENSION SNOMED Code(s): 24939508 Comment: - Controlled, SBP 90-130's. - Continue Toprol, Cardizem, Lisinopril. (5) COPD (chronic obstructive pulmonary disease) Code(s): J44.9 - CHRONIC OBSTRUCTIVE PULMONARY DISEASE, UNSPECIFIED SNOMED Code(s): 02321001 Comment: - No signs of acute exacerbation at this time. - Continue home inhalers. (6) Dementia Code(s): F03.90 - UNSPECIFIED DEMENTIA WITHOUT BEHAVIORAL DISTURBANCE SNOMED Code(s): 52345490 Comment: - Continue Aricept and supportive care. (7) DVT prophylaxis Code(s): OKA7369 - SNOMED Code(s): 460097079 Comment: - Continue Eliquis. (8) Full code status Code(s): Z78.9 - OTHER SPECIFIED HEALTH STATUS SNOMED Code(s): 458188328 Status and Disposition: Inpatient for acute delirium in the setting of dementia with UTI. PT/OT eval and await sensitivities. Discharge home when stable.
[2017-06-05] MEDS: cefTRIAXone VIAL(*) 1,000 MG in NS 0.9% 50 ML* 50 ML IVPB SCH (18:28)
[2017-06-05] MEDS: Metoprolol Succinate XL TAB* 100 MG PO SCH (18:33)
[2017-06-05] MEDS: Atorvastatin* 20 MG TAB PO SCH (22:43)
[2017-06-06 06:31] LABS: Hematocrit 29 % (35-47); Hemoglobin 9.7 g/dl (12.0-16.0); Mean Corpuscular HGB Conc 34 g/dl (31-36); Mean Corpuscular Hemoglobin 31 pg (27-31); Mean Corpuscular Volume 91 fL (80-97); Mean Platelet Volume 7 um3 (7.4-10.4); Red Blood Count 3.16 10^6/ul (4.0-5.4); Red Cell Distribution Width 15 % (10.5-15); White Blood Count 7.3 10^3/ul (3.5-10.8)
[2017-06-06 06:45] LABS: Calcium 8.6 mg/dL (8.6-10.3); EGFR African American 110.2 (>60); EGFR Non-African American 85.7 (>60); Potassium 3.6 mmol/L (3.5-5.0)
[2017-06-06] MEDS: Apixaban* 5 MG TAB PO SCH ×2 (09:21→22:53)
[2017-06-06] MEDS: Lisinopril TAB* 5 MG PO SCH (09:21)
[2017-06-06] MEDS: Magnesium Oxide TAB* 400 MG PO SCH (09:22)
[2017-06-06] MEDS: Furosemide TAB* 40 MG PO SCH (09:22)
[2017-06-06] MEDS: Donepezil TAB* 5 MG PO SCH (09:23)
[2017-06-06] MEDS: Diltiazem CD CAP* 180 MG PO SCH (09:23)
[2017-06-06] MEDS: Cyanocobalamin TAB* 500 MCG PO SCH (09:24)
[2017-06-06] MEDS: Allopurinol TAB* 100 MG PO SCH (09:24)
[2017-06-06] MEDS: PROPAFENONE 225 MG PO SCH ×2 (09:24→22:54)
--- NOTE | 2017-06-06 09:27 | PN ---
Subjective Date of Service: 06/06/17 Interval History: Patient seen and examined at bedside. Denies fever, chills, shortness of breath , chest discomfort, N/V/D, urinary symptoms. NSG staff and Dr. Wong report difficulty finding words this morning. Pt continues to have waxing and waning of orientation status. Family History: Unchanged from Admission Social History: Unchanged from Admission Past Medical History: Unchanged from Admission Objective Active Medications: Acetaminophen (Tylenol Tab*) 975 mg PO Q8H PRN Reason: PAIN Allopurinol (Zyloprim Tab*) 100 mg PO QAM VALE Apixaban (Eliquis*) 5 mg PO BID VALE Atorvastatin Calcium (Lipitor*) 20 mg PO BEDTIME VALE Cyanocobalamin (Vitamin B12 Tab*) 1,000 mcg PO DAILY VALE Diltiazem HCl (Cardizem Cd Cap*) 180 mg PO DAILY VALE Donepezil HCl (Aricept Tab*) 10 mg PO DAILY VALE Furosemide (Lasix Tab*) 40 mg PO QAM VALE Ceftriaxone Sodium 1,000 mg/ (Sodium Chloride) 50 mls @ 200 mls/hr IVPB Q24H VALE Lisinopril (Prinivil Tab*) 2.5 mg PO DAILY VALE Magnesium Oxide (Magox 400 Tab*) 800 mg PO DAILY VALE Metoprolol Succinate (Toprol Xl Tab*) 100 mg PO QPM VALE Mometasone Furoate/Formoterol Fumar (Dulera 200/5 Mdi*) 2 puff INH BID VALE Propafenone HCl (Rythmol Sr (Nf)) 225 mg PO BID VALE Vital Signs 06/05/17 06/05/17 06/05/17 14:28 14:43 20:00 Temperature Pulse Rate 77 78 85 Respiratory 16 16 16 Rate Blood Pressure 169/79 157/67 (mmHg) O2 Sat by Pulse 96 97 96 Oximetry 06/05/17 06/06/17 06/06/17 22:45 04:00 07:23 Temperature 98.8 F 98.2 F Pulse Rate 79 84 80 Respiratory 20 16 16 Rate Blood Pressure 137/64 133/62 140/67 (mmHg) O2 Sat by Pulse 95 96 95 Oximetry Oxygen Devices in Use Now: None Appearance: NAD, sitting up in bed Respiratory: Symmetrical Chest Expansion and Respiratory Effort, Clear to Auscultation Cardiovascular: NL Sounds; No Murmurs; No JVD, RRR Abdominal: NL Sounds; No Tenderness; No Distention Extremities: No Edema Skin: No Rash or Ulcers Neurological: NL Muscle Strength and Tone, - - Alert and Oriented to Person, Place, Year. States that the president is "the ash i don't like, [place]". 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 Cotto is a 66 y/o F w/ hx of CAD, atrial fibrillation (on Eliquis), kidney stones, UTI w/ encephalopathy, COPD, rheumatoid arthritis who presented to the emergency room with increased confusion found to have a UTI. - Patient Problems (1) Altered mental status Code(s): R41.82 - ALTERED MENTAL STATUS, UNSPECIFIED SNOMED Code(s): 602679573 Comment: - Beginning to resolve but continues to have periods of increased confusion and word finding difficulty. - Suspect secondary to UTI. - Appreciate neuro input, MRI normal. - Afebrile, no leukocytosis will hold on LP for now. - Psych consult pending. - Continue to hold tramadol and flexeril. (2) UTI (urinary tract infection) Comment: - Culture growing entereobacter, resistent to ceftriaxone. - Renal U/S negative for any hydronephrosis or stones. - Blood cultures negative to date. - Change to cefepime. (3) Atrial fibrillation Code(s): I48.91 - UNSPECIFIED ATRIAL FIBRILLATION SNOMED Code(s): 80662659 Comment: - NSR at this time. - Continue Cardizem, Toprol, Propafenone and Eliquis for anticoagulation. (4) HTN (hypertension) Code(s): I10 - ESSENTIAL (PRIMARY) HYPERTENSION SNOMED Code(s): 62181954 Comment: - Controlled, SBP 130-150's. - Continue Toprol, Cardizem, Lisinopril. (5) COPD (chronic obstructive pulmonary disease) Code(s): J44.9 - CHRONIC OBSTRUCTIVE PULMONARY DISEASE, UNSPECIFIED SNOMED Code(s): 69530874 Comment: - No signs of acute exacerbation at this time. - Continue home inhalers. (6) Dementia Code(s): F03.90 - UNSPECIFIED DEMENTIA WITHOUT BEHAVIORAL DISTURBANCE SNOMED Code(s): 55833585 Comment: - Continue Aricept and supportive care. (7) DVT prophylaxis Code(s): GKD6642 - SNOMED Code(s): 188626110 Comment: - Continue Eliquis. (8) Full code status Code(s): Z78.9 - OTHER SPECIFIED HEALTH STATUS SNOMED Code(s): 909346789 Status and Disposition: Inpatient for acute delirium in the setting of dementia with UTI. PT/OT eval and await sensitivities. Discharge home when stable.
[2017-06-06] MEDS: Mometasone/Formoter 200/5 MDI INH SCH ×2 (09:32→20:04)
[2017-06-06] MEDS: Cefepime(*) 1 GM in NS 0.9% 50 ML* 50 ML IVPB SCH ×2 (10:49→22:46)
[2017-06-06] MEDS: Metoprolol Succinate XL TAB* 100 MG PO SCH (18:04)
[2017-06-06] MEDS: Sertraline* 25 MG TAB PO SCH (18:04)
[2017-06-06] MEDS: QUEtiapine TAB* 25 MG PO SCH (22:52)
[2017-06-06] MEDS: Atorvastatin* 20 MG TAB PO SCH (22:53)
[2017-06-06] MEDS: Acetaminophen TAB* 325 MG PO PRN (23:00)
--- NOTE | 2017-06-07 01:26 | CONS ---
CONSULTATION REPORT: DATE OF CONSULT: 06/06/17 ATTENDING CLINICIAN: Naina Vera NP CONSULTING PHYSICIAN: Wilfred Augustine MD REASON FOR CONSULT: Delirium and suicidal ideations. 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 I was able to speak with the primary team who indicated that the patient has demonstrated confusion and delirium since her admission on the , but they have also been made aware by her family of certain strange behaviors for example, trying to choke on a muffin on purpose. Apparently, a staff member overheard her making suicidal statements 1 evening ago, as I meet with the patient, she greets me with a broad smile. Her affect is bright and she is a fairly good historian. She tells me right away that she has been quite confused stating that earlier she saw an angle on the television but now thinks that these were just manifestations of lack of sleep and some disorientation related to her medical issues. I note that she is telling me that her family care provider, Dr. Summers has visited her twice a day since this hospitalization and it appeared that this may be delusional in nature. At any rate, the patient is strongly denying suicidal ideations and states that she has not had these for several years. She does admit to depression and when she states this her affect immediately becomes somewhat tearful. She says she is depressed because she has been spending too much time with her . She claims that he has medial limitations that force him to be in the house all day and she wishes that she could have more free time without him. She is also upset about a cut in pay since her fdc. As I ask her questions, I do note mild confusion, for example, when I asked about her energy level, she responds "call my , he had a good night sleep last night." This is demonstrative of the fact that she often loses the context when I am asking questions and therefore gives me somewhat non sequitur answers. Despite this, I am able to ask about neurovegetative symptoms of depression for which she denies all but concentration problems which she attributes more to her medical issues. Interestingly, the patient states that she was stable on Sertraline for several years and she asks if I would consider resuming this. The patient is also screened for her cognition and I note that she needs to look at the board to see the date including month and year. Cognition is further assessed in the mental status examination of this report. PAST PSYCHIATRIC HISTORY: The patient indicates that for years she had depression due to stress at work. Her family care provider put her on Zoloft which she stopped taking after she retired feeling like she no longer needed it. She does admit to suicidal ideations as recently as 2014 when she had a myocardial infarction. She was also upset at her at that time claiming that he was smoking and that she contracted COPD from second-hand smoke. PAST SUBSTANCE ABUSE HISTORY: Significant for social alcohol consumption, but she denies use of tobacco or illicit drugs. PAST MEDICAL HISTORY: Quite significant for coronary artery disease, myocardial infarction, hypertension, rheumatoid arthritis, COPD, skin cancer, atrial fibrillation, and dementia. PAST SURGICAL HISTORY: Significant for bilateral hip replacement, bilateral knee replacement, cholecystectomy, appendectomy, tonsillectomy, atrial fibrillation, shoulder arthroscopy, x3, gastric stapling. FAMILY HISTORY: Negative for either psychiatric issues or suicides. SOCIAL HISTORY: The patient was born and raised in [place], the youngest of 3 daughters. Her parents maintained an intact household and the patient graduated from high school in [place] in 1970. 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 She retired due to her medical issues in 2014. She does state that she has been to the same man since 1973 and continues to live with him. They have 3 daughters and 9 total grand kids. She does indicate that she sometimes watches her grandsons in the morning and put some of her grandchildren on the bus. She still drives a car. She has never been in the . She has no legal history other than a bankruptcy that she went through along with her in 1998. MENTAL STATUS EXAMINATION: The patient is an aging white female who is somewhat overweight, she was lying propped up in her medical bed. She is dressed in a patient gown, appears to have fair grooming. She makes good eye contact. She is calm, cooperative, and easy to establish a rapport with. Speech has a normal rate, tone, and volume. Mood is euthymic, but with a somewhat labile affect, given the fact that she becomes tearful when discussing certain aspects of her marriage. She denies suicidal or homicidal ideations. She denies auditory or visual hallucinations currently, although she indicates that she was seeing things earlier on in the hospitalization. Insight and judgment appear to be fair given her willingness to take medications to help with confusion and depression. Cognitively, she is awake and alert. She is not oriented to the day of the week but is oriented to the day, month, season, and year with some assistance from the date which is posted on her board. She is completely oriented to place including the hospital and her floor. She has good immediate recall, good attention, but does show deficits in delayed recall consistent with dementia. DIAGNOSES: As follows: Bates I: Delirium secondary to recurrent urinary tract infections, mild neurocognitive disorder, unspecified depressive disorder. Bates II: Deferred. 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 The patient remains somewhat confused and I did speak to her about perhaps a trial of quetiapine. In addition, she is requesting the resumption of sertraline for symptoms of depression. It is notable that she lacks neurovegetative symptoms and I do not believe that this constitutes major depressive disorder. The patient strongly denies suicidal ideations and I do not see the rationale for continued one-to-one observations. PLAN: The patient's one-to-one can be discontinued and I will write an order for this. As per her request, I will resume sertraline therapy at a lose of 25 mg daily. This can be titrated by the medical service and managed by her primary care provider following discharge. In addition because of her confusion and apparent intermittent hallucinations and delusions, we can start low dose quetiapine 25 mg p.o. q.h.s. This provider will not be available over the weekend, but I will follow up with the patient on 06/09/17. If the team needs further assistance over the weekend, they can speak with the On-Call psychiatrist, Dr. Jayda Hauser, who can be contacted by calling the Behavioral Science Unit. Thank you for the consult. [id number]/[facility] #: [id number] YEHUDA
[2017-06-07] MEDS: Magnesium Oxide TAB* 400 MG PO SCH (09:21)
[2017-06-07] MEDS: Cyanocobalamin TAB* 500 MCG PO SCH (09:21)
[2017-06-07] MEDS: Allopurinol TAB* 100 MG PO SCH (09:21)
[2017-06-07] MEDS: Apixaban* 5 MG TAB PO SCH ×2 (09:22→23:33)
[2017-06-07] MEDS: Furosemide TAB* 40 MG PO SCH (09:22)
[2017-06-07] MEDS: Donepezil TAB* 5 MG PO SCH (09:23)
[2017-06-07] MEDS: Diltiazem CD CAP* 180 MG PO SCH (09:23)
[2017-06-07] MEDS: Lisinopril TAB* 5 MG PO SCH (09:24)
[2017-06-07] MEDS: PROPAFENONE 225 MG PO SCH ×2 (09:24→23:33)
[2017-06-07] MEDS: Sertraline* 25 MG TAB PO SCH (09:31)
[2017-06-07] MEDS: Mometasone/Formoter 200/5 MDI INH SCH ×2 (09:36→21:24)
[2017-06-07] MEDS: Cefepime(*) 1 GM in NS 0.9% 50 ML* 50 ML IVPB SCH ×2 (10:08→23:31)
[2017-06-07 11:10] LABS: Hematocrit 30 % (35-47); Hemoglobin 10.3 g/dl (12.0-16.0); Mean Corpuscular HGB Conc 34 g/dl (31-36); Mean Corpuscular Hemoglobin 31 pg (27-31); Mean Corpuscular Volume 91 fL (80-97); Mean Platelet Volume 7 um3 (7.4-10.4); Red Blood Count 3.32 10^6/ul (4.0-5.4); Red Cell Distribution Width 15 % (10.5-15); White Blood Count 4.9 10^3/ul (3.5-10.8)
[2017-06-07 11:23] LABS: EGFR Non-African American 77.8 (>60); Potassium 4.4 mmol/L (3.5-5.0)
[2017-06-07 11:24] LABS: Calcium 9.5 mg/dL (8.6-10.3); EGFR African American 100.1 (>60)
--- NOTE | 2017-06-07 12:23 | PN ---
Subjective Date of Service: 06/07/17 Interval History: pt reports she is feeling much better. Her daughter reported to the nurse she is still a little more confused than at her baseline. The patient is noted to be A+O x3 but is noted to be a little wifty. She offers no complaints. She denies any fever or chills. Reported good appetite. Feels "stronger everyday". Family History: Unchanged from Admission Social History: Unchanged from Admission Past Medical History: Unchanged from Admission Objective Active Medications: Acetaminophen (Tylenol Tab*) 975 mg PO Q8H PRN PRN Reason: PAIN Last Admin: 06/06/17 23:00 Dose: 975 mg Allopurinol (Zyloprim Tab*) 100 mg PO QAM [facility] Last Admin: 06/07/17 09:21 Dose: 100 mg Apixaban (Eliquis*) 5 mg PO BID [facility] Last Admin: 06/07/17 09:22 Dose: 5 mg Atorvastatin Calcium (Lipitor*) 20 mg PO BEDTIME [facility] Last Admin: 06/06/17 22:53 Dose: 20 mg Cyanocobalamin (Vitamin B12 Tab*) 1,000 mcg PO DAILY [facility] Last Admin: 06/07/17 09:21 Dose: 1,000 mcg Diltiazem HCl (Cardizem Cd Cap*) 180 mg PO DAILY [facility] Last Admin: 06/07/17 09:23 Dose: 180 mg Donepezil HCl (Aricept Tab*) 10 mg PO DAILY [facility] Last Admin: 06/07/17 09:23 Dose: 10 mg Furosemide (Lasix Tab*) 40 mg PO QAM [facility] Last Admin: 06/07/17 09:22 Dose: 40 mg Cefepime HCl 1 gm/ Sodium (Chloride) 50 mls @ 100 mls/hr IVPB Q12H [facility] Last Admin: 06/07/17 10:08 Dose: 100 mls/hr Lisinopril (Prinivil Tab*) 2.5 mg PO DAILY [facility] Last Admin: 06/07/17 09:24 Dose: 2.5 mg Magnesium Oxide (Magox 400 Tab*) 800 mg PO DAILY [facility] Last Admin: 06/07/17 09:21 Dose: 800 mg Metoprolol Succinate (Toprol Xl Tab*) 100 mg PO QPM [facility] Last Admin: 06/06/17 18:04 Dose: 100 mg Mometasone Furoate/Formoterol Fumar (Dulera 200/5 Mdi*) 2 puff INH BID [facility] Last Admin: 06/07/17 09:36 Dose: 2 puff Propafenone HCl (Rythmol Sr (Nf)) 225 mg PO BID [facility] Last Admin: 06/07/17 09:24 Dose: 225 mg Quetiapine Fumarate (Seroquel Tab*) 25 mg PO BEDTIME [facility] Last Admin: 06/06/17 22:52 Dose: 25 mg Sertraline HCl (Zoloft*) 25 mg PO DAILY [facility] Last Admin: 06/07/17 09:31 Dose: 25 mg Vital Signs 06/06/17 06/06/17 06/06/17 16:59 20:00 20:59 Temperature 97.6 F 97.9 F Pulse Rate 80 80 Respiratory 16 16 16 Rate Blood Pressure 128/71 144/70 (mmHg) O2 Sat by Pulse 98 96 Oximetry 06/06/17 06/06/17 06/07/17 23:50 23:52 03:58 Temperature Pulse Rate 69 74 Respiratory 16 16 Rate Blood Pressure 118/78 87/42 104/56 (mmHg) O2 Sat by Pulse 96 96 Oximetry 06/07/17 06/07/17 07:43 09:41 Temperature 98.2 F Pulse Rate 73 Respiratory 18 16 Rate Blood Pressure 141/74 (mmHg) O2 Sat by Pulse 97 Oximetry Oxygen Devices in Use Now: None Appearance: obese 66 yo female A+O x3 in NAD Eyes: No Scleral Icterus, PERRLA Ears/Nose/Mouth/Throat: NL Teeth, Lips, Gums, Mucous Membranes Moist Neck: NL Appearance and Movements; NL JVP Respiratory: Symmetrical Chest Expansion and Respiratory Effort, Clear to Auscultation Cardiovascular: NL Sounds; No Murmurs; No JVD, RRR, No Edema Abdominal: NL Sounds; No Tenderness; No Distention, - - obese Extremities: No Edema, No Clubbing, Cyanosis Skin: No Rash or Ulcers, No Nodules or Sclerosis Neurological: Alert and Oriented x 3, NL Sensation, NL Muscle Strength and Tone Lines/Tubes/Other Access: Clean, Dry and Intact Peripheral IV Nutrition: Taking PO's Result Diagrams: 06/07/17 10:40 06/07/17 10:41 Additional Lab and Data: . Microbiology and Other Data: Microbiology 06/03/17 00:30 Nasal Screen MRSA (PCR)(TYLER) - Final Nasal Mrsa Positive Assess/Plan/Problems-Billing Ms. Cotto is a 66 y/o F w/ hx of CAD, atrial fibrillation (on Eliquis), kidney stones, UTI w/ encephalopathy, COPD, rheumatoid arthritis who presented to the emergency room with increased confusion found to have a UTI. - Patient Problems (1) Altered mental status Comment: - Improving, suspect delirium in the setting of illness - Suspect secondary to UTI. - Appreciate neuro input, MRI normal. - Afebrile, no leukocytosis will hold on LP for now. - Appreciate Psych consult - Continue to hold tramadol and flexeril. (2) UTI (urinary tract infection) Comment: - Culture growing entereobacter, resistent to ceftriaxone. - Renal U/S negative for any hydronephrosis or stones. - Blood cultures negative to date. - Continue cefepime. (3) Atrial fibrillation Comment: - NSR at this time. - Continue Cardizem, Toprol, Propafenone and Eliquis for anticoagulation. (4) COPD (chronic obstructive pulmonary disease) Comment: - No signs of acute exacerbation at this time. - Continue home inhalers. (5) Dementia Comment: - Continue Aricept and supportive care. (6) HTN (hypertension) Comment: - Controlled, SBP 130-150's. - Continue Toprol, Cardizem, Lisinopril. (7) DVT prophylaxis Comment: - Continue Eliquis. (8) Full code status Status and Disposition: Inpatient for acute delirium in the setting of dementia with UTI. PT/OT eval and await sensitivities. Discharge home when stable.
[2017-06-07] MEDS ORDERED: Senna TAB PO ONE (17:03)
[2017-06-07] MEDS: Metoprolol Succinate XL TAB* 100 MG PO SCH (17:24)
[2017-06-07] MEDS: Acetaminophen TAB* 325 MG PO PRN (23:31)
[2017-06-07] MEDS: Atorvastatin* 20 MG TAB PO SCH (23:33)
[2017-06-07] MEDS: QUEtiapine TAB* 25 MG PO SCH (23:33)
[2017-06-08 06:52] LABS: Hematocrit 31 % (35-47); Hemoglobin 10.3 g/dl (12.0-16.0); Mean Corpuscular HGB Conc 34 g/dl (31-36); Mean Corpuscular Hemoglobin 30 pg (27-31); Mean Corpuscular Volume 90 fL (80-97); Mean Platelet Volume 6 um3 (7.4-10.4); Red Blood Count 3.39 10^6/ul (4.0-5.4); Red Cell Distribution Width 15 % (10.5-15); White Blood Count 6.4 10^3/ul (3.5-10.8)
[2017-06-08 07:06] LABS: BUN/Creatinine Ratio 19.8 (8-20); EGFR African American 91.6 (>60); EGFR Non-African American 71.2 (>60); Potassium 4.5 mmol/L (3.5-5.0)
[2017-06-08] MEDS: Mometasone/Formoter 200/5 MDI INH SCH ×2 (08:50→22:01)
[2017-06-08] MEDS: PROPAFENONE 225 MG PO SCH ×2 (09:37→20:08)
[2017-06-08] MEDS: Allopurinol TAB* 100 MG PO SCH (09:38)
[2017-06-08] MEDS: Magnesium Oxide TAB* 400 MG PO SCH (09:38)
[2017-06-08] MEDS: Sertraline* 25 MG TAB PO SCH (09:38)
[2017-06-08] MEDS: Furosemide TAB* 40 MG PO SCH (09:38)
[2017-06-08] MEDS: Diltiazem CD CAP* 180 MG PO SCH (09:38)
[2017-06-08] MEDS: Apixaban* 5 MG TAB PO SCH ×2 (09:38→20:07)
[2017-06-08] MEDS: Senna TAB PO SCH (09:38)
[2017-06-08] MEDS: Cholecalciferol TAB* 1000 UNITS PO SCH (09:38)
[2017-06-08] MEDS: Lisinopril TAB* 5 MG PO SCH (09:38)
[2017-06-08] MEDS: Cefepime(*) 1 GM in NS 0.9% 50 ML* 50 ML IVPB SCH (09:39)
[2017-06-08] MEDS: Donepezil TAB* 5 MG PO SCH (09:39)
--- NOTE | 2017-06-08 10:52 | PN ---
Subjective Date of Service: 06/08/17 Interval History: . Per nursing staff patient has continued to have intermittent confusion. She remembered me from our visit yesterday. When I asked her she looked at her hospital bracelet. I asked her if she felt confused and she said she did and she has been "catching herself" feeling confused and saying things that dont make sense. She denies any hallucinations. She otherwise feels okay. She has been ambulating with walker to bathroom with minimal assist. Denies any SOB/CP. No fever or chills. No N/V/D or abdominal pain. Family History: Unchanged from Admission Social History: Unchanged from Admission Past Medical History: Unchanged from Admission Objective Active Medications: Acetaminophen (Tylenol Tab*) 975 mg PO Q8H PRN PRN Reason: PAIN Last Admin: 06/07/17 23:31 Dose: 975 mg Allopurinol (Zyloprim Tab*) 100 mg PO QAM [facility] Last Admin: 06/08/17 09:38 Dose: 100 mg Apixaban (Eliquis*) 5 mg PO BID [facility] Last Admin: 06/08/17 09:38 Dose: 5 mg Atorvastatin Calcium (Lipitor*) 20 mg PO BEDTIME [facility] Last Admin: 06/07/17 23:33 Dose: 20 mg Cholecalciferol (Vitamin D Tab*) 2,000 units PO DAILY [facility] Last Admin: 06/08/17 09:38 Dose: 2,000 units Diltiazem HCl (Cardizem Cd Cap*) 180 mg PO DAILY [facility] Last Admin: 06/08/17 09:38 Dose: 180 mg Donepezil HCl (Aricept Tab*) 10 mg PO DAILY [facility] Last Admin: 06/08/17 09:39 Dose: 10 mg Furosemide (Lasix Tab*) 40 mg PO QAM [facility] Last Admin: 06/08/17 09:38 Dose: 40 mg Cefepime HCl 1 gm/ Sodium (Chloride) 50 mls @ 100 mls/hr IVPB Q12H [facility] Stop: 06/08/17 16:00 Last Admin: 06/08/17 09:39 Dose: 100 mls/hr Cefepime HCl (Maxipime 1 Gm In Dextrose Duplex (*)) 1 gm in 50 mls @ 100 mls/ hr IV Q12H [facility] Lisinopril (Prinivil Tab*) 2.5 mg PO DAILY [facility] Last Admin: 06/08/17 09:38 Dose: 2.5 mg Magnesium Oxide (Magox 400 Tab*) 800 mg PO DAILY [facility] Last Admin: 06/08/17 09:38 Dose: 800 mg Metoprolol Succinate (Toprol Xl Tab*) 100 mg PO QPM [facility] Last Admin: 06/07/17 17:24 Dose: 100 mg Mometasone Furoate/Formoterol Fumar (Dulera 200/5 Mdi*) 2 puff INH BID [facility] Last Admin: 06/08/17 08:50 Dose: 2 puff Propafenone HCl (Rythmol Sr (Nf)) 225 mg PO BID [facility] Last Admin: 06/08/17 09:37 Dose: 225 mg Quetiapine Fumarate (Seroquel Tab*) 25 mg PO BEDTIME [facility] Last Admin: 06/07/17 23:33 Dose: 25 mg Senna (Senokot Tab*) 1 tab PO DAILY [facility] Last Admin: 06/08/17 09:38 Dose: 1 tab Sertraline HCl (Zoloft*) 25 mg PO DAILY [facility] Last Admin: 06/08/17 09:38 Dose: 25 mg Vital Signs 06/07/17 06/07/17 06/07/17 15:40 19:41 20:00 Temperature 98.2 F 98.2 F Pulse Rate 80 82 Respiratory 16 16 16 Rate Blood Pressure 147/62 149/66 (mmHg) O2 Sat by Pulse 96 95 Oximetry 06/07/17 06/08/17 23:12 08:50 Temperature 98.0 F Pulse Rate 79 82 Respiratory 18 Rate Blood Pressure 141/59 (mmHg) O2 Sat by Pulse 94 Oximetry Oxygen Devices in Use Now: None Appearance: 66 yo female alert, confused in NAD Eyes: No Scleral Icterus, PERRLA Ears/Nose/Mouth/Throat: NL Teeth, Lips, Gums, Mucous Membranes Moist Respiratory: Symmetrical Chest Expansion and Respiratory Effort, Clear to Auscultation Cardiovascular: NL Sounds; No Murmurs; No JVD, RRR, No Edema Abdominal: NL Sounds; No Tenderness; No Distention Extremities: No Edema, No Clubbing, Cyanosis Skin: No Rash or Ulcers, No Nodules or Sclerosis Neurological: Alert and Oriented x 3, NL Sensation, NL Gait, NL Muscle Strength and Tone Lines/Tubes/Other Access: Clean, Dry and Intact Peripheral IV Nutrition: Taking PO's Result Diagrams: 06/08/17 06:41 06/08/17 06:41 Additional Lab and Data: . Microbiology and Other Data: Microbiology 06/03/17 00:30 Nasal Screen MRSA (PCR)(TYLER) - Final Nasal Mrsa Positive Assess/Plan/Problems-Billing Ms. Cotto is a 66 y/o F w/ hx of CAD, atrial fibrillation (on Eliquis), kidney stones, UTI w/ encephalopathy, COPD, rheumatoid arthritis who presented to the emergency room with increased confusion found to have a UTI. - Patient Problems (1) Altered mental status Comment: - Improving but continues to have intermittent confusion, suspect delirium in the setting of illness. - Suspect secondary to UTI. - Appreciate neuro input, MRI normal. - Afebrile, no leukocytosis will hold on LP for now. - Appreciate Psych consult - restarted Sertraline 25 mg daily and started Seroquel 25 mg QHS for intermittent hallucinations and delusions. Plan to follow up Friday - Continue to hold tramadol and flexeril. (2) UTI (urinary tract infection) Comment: - Culture growing entereobacter, resistent to multiple abx; allergic to fluoroquinolones - started on cefepime on 06/06 - continue IV abx for at least 3 days. - Renal U/S negative for any hydronephrosis or stones. - Blood cultures negative to date. (3) Atrial fibrillation Comment: - NSR at this time. - Continue Cardizem, Toprol, Propafenone and Eliquis for anticoagulation. (4) COPD (chronic obstructive pulmonary disease) Comment: - No signs of acute exacerbation at this time. - Continue home inhalers. (5) Dementia Comment: - Continue Aricept and supportive care. (6) HTN (hypertension) Comment: - Controlled, SBP 130-150's. - Continue Toprol, Cardizem, Lisinopril. (7) DVT prophylaxis Comment: - Continue Eliquis. (8) Full code status Status and Disposition: Inpatient for acute delirium in the setting of dementia with UTI. PT/OT.
[2017-06-08] MEDS: Metoprolol Succinate XL TAB* 100 MG PO SCH (17:46)
[2017-06-08] MEDS: Atorvastatin* 20 MG TAB PO SCH (20:07)
[2017-06-08] MEDS: QUEtiapine TAB* 25 MG PO SCH (20:07)
[2017-06-08] MEDS: Cefepime 1 GM in Dextrose(*) 1 GM/50 ML BAG IV SCH (22:27)
[2017-06-09] MEDS: Mometasone/Formoter 200/5 MDI INH SCH ×2 (08:45→19:35)
--- NOTE | 2017-06-09 08:50 | PN ---
Subjective Date of Service: 06/09/17 Interval History: Patient seen and examined at bedside. Denies fever, chills, shortness of breath , chest discomfort, V/D, or urinary symptoms. Pt states that she feels like she is getting a cold and reports nasal congestion, and nausea this AM when breakfast arrived. Pt continues to use clues in the room to indicate the date and other information. Family History: Unchanged from Admission Social History: Unchanged from Admission Past Medical History: Unchanged from Admission Objective Active Medications: Acetaminophen (Tylenol Tab*) 975 mg PO Q8H PRN Reason: PAIN Allopurinol (Zyloprim Tab*) 100 mg PO QAM [facility] Apixaban (Eliquis*) 5 mg PO BID [facility] Atorvastatin Calcium (Lipitor*) 20 mg PO BEDTIME [facility] Cholecalciferol (Vitamin D Tab*) 2,000 units PO DAILY [facility] Diltiazem HCl (Cardizem Cd Cap*) 180 mg PO DAILY [facility] Donepezil HCl (Aricept Tab*) 10 mg PO DAILY [facility] Furosemide (Lasix Tab*) 40 mg PO QAM [facility] Cefepime HCl (Maxipime 1 Gm In Dextrose Duplex (*)) 1 gm in 50 mls @ 100 mls/ hr IV Q12H [facility] Lisinopril (Prinivil Tab*) 2.5 mg PO DAILY [facility] Magnesium Oxide (Magox 400 Tab*) 800 mg PO DAILY [facility] Metoprolol Succinate (Toprol Xl Tab*) 100 mg PO QPM [facility] Mometasone Furoate/Formoterol Fumar (Dulera 200/5 Mdi*) 2 puff INH BID [facility] Propafenone HCl (Rythmol Sr (Nf)) 225 mg PO BID [facility] Quetiapine Fumarate (Seroquel Tab*) 25 mg PO BEDTIME [facility] Senna (Senokot Tab*) 1 tab PO DAILY [facility] Sertraline HCl (Zoloft*) 25 mg PO DAILY [facility] Vital Signs 06/08/17 06/08/17 06/08/17 08:50 15:22 19:17 Temperature 97.8 F 98.6 F Pulse Rate 82 88 78 Respiratory 18 16 Rate Blood Pressure 152/54 132/52 (mmHg) O2 Sat by Pulse 96 95 Oximetry 06/08/17 06/08/17 06/08/17 20:00 20:12 23:55 Temperature 98.2 F Pulse Rate 78 97 Respiratory 18 16 Rate Blood Pressure 146/66 134/49 (mmHg) O2 Sat by Pulse 96 95 Oximetry 06/09/17 06/09/17 03:15 07:28 Temperature 97.9 F 97.6 F Pulse Rate 85 83 Respiratory 16 18 Rate Blood Pressure 137/69 153/76 (mmHg) O2 Sat by Pulse 96 98 Oximetry Oxygen Devices in Use Now: None Appearance: NAD, sitting up in a chair Ears/Nose/Mouth/Throat: Mucous Membranes Moist Respiratory: Symmetrical Chest Expansion and Respiratory Effort, Clear to Auscultation Cardiovascular: NL Sounds; No Murmurs; No JVD, RRR Abdominal: NL Sounds; No Tenderness; No Distention Extremities: No Edema Skin: No Rash or Ulcers Neurological: NL Muscle Strength and Tone, - - Alert and Oriented to Person and Place, confused to time Lines/Tubes/Other Access: Clean, Dry and Intact Peripheral IV - site benign Nutrition: Taking PO's Result Diagrams: 06/08/17 06:41 06/08/17 06:41 Additional Lab and Data: . Microbiology and Other Data: Microbiology 06/03/17 00:30 Nasal Screen MRSA (PCR)([facility]) - Final Nasal Mrsa Positive Assess/Plan/Problems-Billing Ms. Cotto is a 66 y/o F w/ hx of CAD, atrial fibrillation (on Eliquis), kidney stones, UTI w/ encephalopathy, COPD, rheumatoid arthritis who presented to the emergency room with increased confusion found to have a UTI. - Patient Problems (1) Altered mental status Code(s): R41.82 - ALTERED MENTAL STATUS, UNSPECIFIED SNOMED Code(s): 606354749 Comment: - Improving but continues to have intermittent confusion, suspect delirium in the setting of illness. - Suspect Acute delirium secondary to UTI. - Appreciate neuro input, MRI normal. - Afebrile, no leukocytosis will hold on LP for now. - Appreciate Psych consult - Sertraline 25 mg daily and Seroquel 25 mg QHS for intermittent hallucinations and delusions. Plan to follow up today - Continue to hold tramadol and flexeril. (2) UTI (urinary tract infection) Comment: - Culture growing entereobacter, resistent to multiple abx; allergic to fluoroquinolones - started on cefepime on 06/06 - continue IV abx for at least 3 days. - Renal U/S negative for any hydronephrosis or stones. - Blood cultures negative to date. (3) Atrial fibrillation Code(s): I48.91 - UNSPECIFIED ATRIAL FIBRILLATION SNOMED Code(s): 56014905 Comment: - NSR at this time. - Continue Cardizem, Toprol, Propafenone and Eliquis for anticoagulation. (4) HTN (hypertension) Code(s): I10 - ESSENTIAL (PRIMARY) HYPERTENSION SNOMED Code(s): 09348030 Comment: - Controlled, SBP 130-150's. - Continue Toprol, Cardizem, Lisinopril. (5) COPD (chronic obstructive pulmonary disease) Code(s): J44.9 - CHRONIC OBSTRUCTIVE PULMONARY DISEASE, UNSPECIFIED SNOMED Code(s): 49810846 Comment: - No signs of acute exacerbation at this time. - Continue home inhalers. (6) Dementia Code(s): F03.90 - UNSPECIFIED DEMENTIA WITHOUT BEHAVIORAL DISTURBANCE SNOMED Code(s): 49256324 Comment: - Continue Aricept and supportive care. (7) DVT prophylaxis Code(s): TUX8414 - SNOMED Code(s): 651311289 Comment: - Continue Eliquis. (8) Full code status Code(s): Z78.9 - OTHER SPECIFIED HEALTH STATUS SNOMED Code(s): 292908171 Status and Disposition: Inpatient for acute delirium in the setting of dementia with UTI. PT/OT.
[2017-06-09] MEDS: Ondansetron INJ* 2 MG/ML VIAL IV PRN ×2 (10:05→17:00)
[2017-06-09] MEDS: Cefepime 1 GM in Dextrose(*) 1 GM/50 ML BAG IV SCH ×2 (10:12→22:10)
[2017-06-09] MEDS ORDERED: CMC: Melatonin (NF) 3 MG TAB PO PRN (10:15)
[2017-06-09] MEDS: Magnesium Oxide TAB* 400 MG PO SCH (11:07)
[2017-06-09] MEDS: Allopurinol TAB* 100 MG PO SCH (11:07)
[2017-06-09] MEDS: Lisinopril TAB* 5 MG PO SCH (11:08)
[2017-06-09] MEDS: Donepezil TAB* 5 MG PO SCH (11:08)
[2017-06-09] MEDS: Furosemide TAB* 40 MG PO SCH (11:09)
[2017-06-09] MEDS: Apixaban* 5 MG TAB PO SCH ×2 (11:10→20:39)
[2017-06-09] MEDS: Cholecalciferol TAB* 1000 UNITS PO SCH (11:10)
[2017-06-09] MEDS: Sertraline* 25 MG TAB PO SCH (11:10)
[2017-06-09] MEDS: Diltiazem CD CAP* 180 MG PO SCH (11:10)
[2017-06-09] MEDS: Senna TAB PO SCH (11:10)
[2017-06-09] MEDS: PROPAFENONE 225 MG PO SCH ×2 (11:11→20:38)
--- NOTE | 2017-06-09 12:05 | CONSULT ---
Identification - Patient Identification Reason for Psychiatric Consultation: Suicidal Ideation -: Patient is a 66 year old, F admitted on 06/03/17. - MHU Identification Employment Status: Disabled Hx Psychiatric Hospitalization: No History - Objective HPI: Jessica is more confused than when I met her on Friday. She has no recollection of me or that interaction. She is calm and pleasant but disoriented to time and situation. Her presentation is more somatic than our last encounter, as she is c/o nausea and ringing her call-diaz repeatedly, saying "They switched me from oral to the pills." She believes her children are in the room with her presently, although they are not. She is in good spirits and denies SI. Lab Results: Laboratory Tests 06/03/17 06/03/17 06/06/17 19:43 19:43 05:52 WBC 7.3 RBC 3.16 L Hgb 9.7 L Hct 29 L MCV 91 MCH 31 MCHC 34 RDW 15 Plt Count 208 MPV 7 L Neut % (Auto) 69.5 Lymph % (Auto) 15.3 L [place] % (Auto) 12.2 H Eos % (Auto) 2.4 Baso % (Auto) 0.6 Absolute Neuts (auto) 5.1 Absolute Lymphs (auto) 1.1 Absolute Monos (auto) 0.9 H Absolute Eos (auto) 0.2 Absolute Basos (auto) 0 Absolute Nucleated RBC 0 Nucleated RBC % 0 Sodium Potassium Chloride Carbon Dioxide Anion Gap BUN Creatinine Est GFR ( Amer) Est GFR (Non-Af Amer) BUN/Creatinine Ratio Glucose Calcium Ammonia 49 Vitamin B12 1089 H 25-OH Vitamin D Total 06/06/17 06/07/17 06/07/17 05:52 10:40 10:41 WBC 4.9 RBC 3.32 L Hgb 10.3 L Hct 30 L MCV 91 MCH 31 MCHC 34 RDW 15 Plt Count 232 MPV 7 L Neut % (Auto) 66.5 Lymph % (Auto) 19.1 L [place] % (Auto) 10.2 H Eos % (Auto) 3.4 Baso % (Auto) 0.8 Absolute Neuts (auto) 3.3 Absolute Lymphs (auto) 0.9 L Absolute Monos (auto) 0.5 Absolute Eos (auto) 0.2 Absolute Basos (auto) 0 Absolute Nucleated RBC 0 Nucleated RBC % 0 Sodium 131 L 131 L Potassium 3.6 4.4 Chloride 98 L 98 L Carbon Dioxide 29 29 Anion Gap 4 4 BUN 9 12 Creatinine 0.69 0.75 Est GFR ( Amer) 110.2 100.1 Est GFR (Non-Af Amer) 85.7 77.8 BUN/Creatinine Ratio 13.0 16.0 Glucose 112 H 199 H Calcium 8.6 9.5 Ammonia Vitamin B12 25-OH Vitamin D Total 06/08/17 06/08/17 06:41 06:41 WBC 6.4 RBC 3.39 L Hgb 10.3 L Hct 31 L MCV 90 MCH 30 MCHC 34 RDW 15 Plt Count 239 MPV 6 L Neut % (Auto) 61.4 Lymph % (Auto) 21.7 L [place] % (Auto) 12.5 H Eos % (Auto) 3.4 Baso % (Auto) 1.0 Absolute Neuts (auto) 3.9 Absolute Lymphs (auto) 1.4 Absolute Monos (auto) 0.8 Absolute Eos (auto) 0.2 Absolute Basos (auto) 0.1 Absolute Nucleated RBC 0 Nucleated RBC % 0.1 Sodium 135 Potassium 4.5 Chloride 100 L Carbon Dioxide 30 Anion Gap 5 BUN 16 Creatinine 0.81 Est GFR ( Amer) 91.6 Est GFR (Non-Af Amer) 71.2 BUN/Creatinine Ratio 19.8 Glucose 106 H Calcium 10.0 Ammonia Vitamin B12 25-OH Vitamin D Total 18.8 L Exam Appearance: Well Developed/Nourished Hygiene: Normal Grooming: Fairly Well Kept Psychomotor Activities: Normal Exhibits Abnormal Movement: No Attitude and Relatedness: Cooperative Eye Contact: Fair - Speech Quality: Unpressured Latencies: Normal Quantity: Appropriate Patient's Decription of Mood: "Good" Observed Affect: Fair Affect Consistent with: Euthymia Patient's Thought Process: Disorganized Thought Content: Yes Paranoid Ideation, No Passive Wish, No Suicidal Planning, No Homicidal Ideation Experiencing Hallucinations: Yes Type of Hallucinations: Visual: Yes, Auditory: No, Command: No Level of Consciousness: Alert Orientation: Yes Orientated to Person, No Intact, No Orientated to Time, No Orientated to Place Impulse Control: Poor Insight and Judgement: Impaired Impression - Impression Clinical Impression: 66 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 Inpatient DSM-IV Dx: Delirium secondary to UTI Merits Inpatient Hospitalization: No Plan - Treatment Plan Treatment Plan: The patient's sertraline and quetiapine, started on Friday, June 06, are well-tolerated but subtherapeutic. Will increase sertraline to 50mg PO qday and quetiapine to 50mg PO qhs. Urine infection treated with ABX. Psychiatry will continue to see patient. Continued Medication Management: Start Medication Medications: Current Medications Acetaminophen (Tylenol Tab*) 975 mg PO Q8H PRN PRN Reason: PAIN Last Admin: 06/07/17 23:31 Dose: 975 mg Allopurinol (Zyloprim Tab*) 100 mg PO QAM [facility] Last Admin: 06/09/17 11:07 Dose: 100 mg Apixaban (Eliquis*) 5 mg PO BID [facility] Last Admin: 06/09/17 11:10 Dose: 5 mg Atorvastatin Calcium (Lipitor*) 20 mg PO BEDTIME [facility] Last Admin: 06/08/17 20:07 Dose: 20 mg Cholecalciferol (Vitamin D Tab*) 2,000 units PO DAILY [facility] Last Admin: 06/09/17 11:10 Dose: 2,000 units Diltiazem HCl (Cardizem Cd Cap*) 180 mg PO DAILY [facility] Last Admin: 06/09/17 11:10 Dose: 180 mg Donepezil HCl (Aricept Tab*) 10 mg PO DAILY [facility] Last Admin: 06/09/17 11:08 Dose: 10 mg Furosemide (Lasix Tab*) 40 mg PO QAM [facility] Last Admin: 06/09/17 11:09 Dose: 40 mg Cefepime HCl (Maxipime 1 Gm In Dextrose Duplex (*)) 1 gm in 50 mls @ 100 mls/ hr IV Q12H [facility] Last Admin: 06/09/17 10:12 Dose: 100 mls/hr Lisinopril (Prinivil Tab*) 2.5 mg PO DAILY [facility] Last Admin: 06/09/17 11:08 Dose: 2.5 mg Magnesium Oxide (Magox 400 Tab*) 800 mg PO DAILY [facility] Last Admin: 06/09/17 11:07 Dose: 800 mg Melatonin (Melatonin (Nf)) 1 mg PO BEDTIME PRN PRN Reason: INSOMNIA Metoprolol Succinate (Toprol Xl Tab*) 100 mg PO QPM [facility] Last Admin: 06/08/17 17:46 Dose: 100 mg Mometasone Furoate/Formoterol Fumar (Dulera 200/5 Mdi*) 2 puff INH BID [facility] Last Admin: 06/09/17 08:45 Dose: 2 puff Ondansetron HCl (Zofran Inj*) 4 mg IV Q6H PRN PRN Reason: NAUSEA Last Admin: 06/09/17 10:05 Dose: 4 mg Propafenone HCl (Rythmol Sr (Nf)) 225 mg PO BID [facility] Last Admin: 06/09/17 11:11 Dose: 225 mg Quetiapine Fumarate (Seroquel Tab*) 50 mg PO BEDTIME [facility] Senna (Senokot Tab*) 1 tab PO DAILY [facility] Last Admin: 06/09/17 11:10 Dose: 1 tab
[2017-06-09] MEDS: Acetaminophen TAB* 325 MG PO PRN (16:35)
[2017-06-09] MEDS ORDERED: PROCHLORPERAZINE INJ 5 MG/ML 2 ML VIAL IV PRN (18:11)
[2017-06-09] MEDS: Atorvastatin* 20 MG TAB PO SCH (20:39)
[2017-06-09] MEDS: Metoprolol Succinate XL TAB* 100 MG PO SCH (20:39)
[2017-06-09] MEDS ORDERED: CMCS:Melatonin (NF) 3 MG TAB PO PRN (20:48)
[2017-06-09] MEDS ORDERED: QUEtiapine TAB* 25 MG PO SCH (21:00)
--- NOTE | 2017-06-10 03:34 | PN ---
PROGRESS NOTE: DATE OF PROGRESS NOTE: 06/09/17 LOCATION: She is currently in room 405, bed 1. SUBJECTIVE: I have reviewed her most recent notes. Dr. Carrasco did an EEG, which showed slowing of the background rhythm but no epileptiform activity, although it was a limited study. He also did an MRI of the brain, which showed white matter disease. No acute changes. Small focus of encephalomalacia in the left occipital lobe. She was admitted with confusion and altered mental status and had a urinary tract infection. She was initially treated with ceftriaxone but subsequent urinary studies showed resistance to ceftriaxone, sensitivity to cefepime. She was switched to that medication on 06/06/17 and has since been treated for the last 3 days with that antibiotic. Looking back through her notes over the last several days, it appears that her mental status has been waxing and waning. At times, she is more conversant and answering questions, although not always appropriately. At other times when speaking with the nurse, she has very limited speech and gets hung up on words and is unable to really communicate much. Today, when I saw her, she was like that. She was unable to give me any real history. She had a paucity of speech. She was following some commands at times, but at other times would not follow commands and seemed to get very confused. When I spoke with the nurse about it, she said this is what she has been doing off and on since she is seeing her. She is wearing a mask this morning. She feels like she is getting a cold. She has been seen by Psychiatry, who restarted her on sertraline that was increased today. In addition, she was started on Seroquel, which was increased as well. There have been no acute events reported in the hospital, but she continues to wax and wane mentally. Based on this, I was asked to see her again. OBJECTIVE: Vital Signs: Temp of 97.6, pulse of 83, respiratory rate of 18, pulse ox 98%, blood pressure 134/49 to 137/69 to 153/76. In general, she is a well- nourished, well-developed female, lying in her hospital bed. She is pleasant, well dressed, well groomed. She has a mask. On HEENT, she is normocephalic, atraumatic. Sclerae are anicteric. Mucous membranes are moist. Oropharynx is clear. Neck is supple. No thyromegaly. No carotid bruits. No meningismus. Chest: Clear to auscultation bilaterally. Cardiovascular: Regular rate and rhythm. Abdomen is nontender, obese. Extremities: No cyanosis, 2+ nonpitting edema in the feet bilaterally. Neurologic Exam: She is awake. She is alert. She seems to orient to her name only. She has a paucity of speech currently. When I first walked in, she did not respond to me but made some mumbling noises. Subsequently, when I returned, she did speak more but it was in short halting sentences. She would intermittently follow commands for me but was not answering my questions appropriately. Her pupils are equal, round, and reactive to light. Extraocular muscles appear intact. Visual lynne are full to threat. Face is symmetric. She is spontaneously moving all extremities antigravity. She would point to my fingers bilaterally. There was no obvious tremor noted. She told me that I had 3 fingers up when I had 2 fingers showing. She did follow some simple commands like wiggle her toes, move her fingers. Her movement is spontaneous and she appears to have good resistance throughout. There are no focal deficits noted. DTRs were difficult to assess. Sensation seems to be intact to pain withdrawal. Gait was not tested at this time. DIAGNOSTIC STUDIES/LAB DATA: Most recently, her white count has been low 6.4 yesterday, hemoglobin of 10.3, hematocrit of 31, platelet count of 239. Chemistry yesterday, BMP with chloride of 100, glucose of 106. Vitamin D of 18.8. Her B12 was 1089. Ammonia 49. EEG and imaging as noted above. ASSESSMENT AND PLAN: Ms. Cotto is a 66-year-old female with a history of dementia; history of atrial fibrillation, on Eliquis; history of coronary artery disease; rheumatoid arthritis; chronic obstructive pulmonary disease; history of prior urinary tract infection with encephalopathy afterwards, she was apparently seen by Dr. Sheldon in the past, who noted that she had a slow recovery after her last urinary tract infection, was admitted at this time with urinary tract infection and has had waxing and waning symptoms consistent with delirium. MRI showed no acute changes. EEG showed no evidence of seizures. She has had no fevers, no elevated white count. My suspicion of some sort of infectious or inflammatory process is very low. At this point, I continue to suspect that she has a delirium likely related to underlying medical conditions including the urinary tract infection. She has been on good therapy now for the last 3 days and per her prior visit was very slow to respond during her last episode of urinary tract infection with some persistent cognitive problems. Her examination was difficult but I see no focal deficits at this time. My suspicion for new stroke is low. My suspicion for seizures at this point is low given the fact that she has been waxing and waning like this and she had a negative EEG. At this point, I would continue to treat her urinary tract infection. I believe that a lumbar puncture at this time would be low yield as there is no evidence of any infection. She has recently had her sertraline restarted and that has been increased today as has her Seroquel. I do think it is reasonable at this point to give her time to adjust to the new medication dose. We will continue treatment of her underlying medical conditions. She is on Aricept for her history of dementia. Given her prior history, I would expect a slow recovery with possibly more residual cognitive deficit after her discharge. There is the possibility that she may not return to her prior baseline. I would continue to treat her conservatively. I would not make any medication changes or proceed with any additional studies at this time. Please feel free to contact me with any changes in her neurologic status that may require reevaluation. [id number]/[facility] #: [id number] YEHUDA
[2017-06-10 07:27] VITALS: BP 109/46
[2017-06-10] MEDS: Mometasone/Formoter 200/5 MDI INH SCH (08:23)
[2017-06-10] MEDS ORDERED: Sertraline* 50 MG TAB PO SCH (09:00)
--- NOTE | 2017-06-10 09:30 | PN ---
Subjective Date of Service: 06/10/17 Interval History: Patient seen and examined at bedside. Pt states that she is feeling well and ready to go home. Denies fever, chills, chest discomfort, N/V, urinary symptoms. Pt reports mild shortness of breath and diarrhea (NSG documentation shows no BM since yesterday). Pt continues to wear a mask as she feels she has a cold and is worried about other catching what she has. Discussed with Pt's Parveen on the phone her discharge plans and he is agreeable to her discharge home today. Family History: Unchanged from Admission Social History: Unchanged from Admission Past Medical History: Unchanged from Admission Objective Active Medications: Acetaminophen (Tylenol Tab*) 975 mg PO Q8H PRN Reason: PAIN Allopurinol (Zyloprim Tab*) 100 mg PO QAM VALE Apixaban (Eliquis*) 5 mg PO BID VALE Atorvastatin Calcium (Lipitor*) 20 mg PO BEDTIME VALE Cholecalciferol (Vitamin D Tab*) 2,000 units PO DAILY VALE Diltiazem HCl (Cardizem Cd Cap*) 180 mg PO DAILY VALE Donepezil HCl (Aricept Tab*) 10 mg PO DAILY VALE Furosemide (Lasix Tab*) 40 mg PO QAM VALE Cefepime HCl (Maxipime 1 Gm In Dextrose Duplex (*)) 1 gm in 50 mls @ 100 mls/ hr IV Q12H VALE Lisinopril (Prinivil Tab*) 2.5 mg PO DAILY VALE Magnesium Oxide (Magox 400 Tab*) 800 mg PO DAILY VALE Melatonin (Melatonin (Nf)) 3 mg PO BEDTIME PRN Reason: INSOMNIA Metoprolol Succinate (Toprol Xl Tab*) 100 mg PO QPM VALE Mometasone Furoate/Formoterol Fumar (Dulera 200/5 Mdi*) 2 puff INH BID VALE Ondansetron HCl (Zofran Inj*) 4 mg IV Q6H PRN Reason: NAUSEA Prochlorperazine Edisylate (Compazine Inj*) 5 mg IV Q6H PRN Reason: NAUSEA/ VOMITING Propafenone HCl (Rythmol Sr (Nf)) 225 mg PO BID VALE Quetiapine Fumarate (Seroquel Tab*) 50 mg PO BEDTIME VALE Senna (Senokot Tab*) 1 tab PO DAILY VALE Sertraline HCl (Zoloft*) 50 mg PO DAILY [facility] Vital Signs 06/09/17 06/09/17 06/09/17 15:44 19:37 19:45 Temperature 98.6 F 97.7 F Pulse Rate 88 86 85 Respiratory 16 16 20 Rate Blood Pressure 144/70 119/50 (mmHg) O2 Sat by Pulse 94 94 97 Oximetry 06/09/17 06/09/17 06/10/17 20:00 23:29 07:23 Temperature 97.8 F 98.2 F Pulse Rate 81 78 Respiratory 16 16 17 Rate Blood Pressure 123/51 109/46 (mmHg) O2 Sat by Pulse 97 96 Oximetry Oxygen Devices in Use Now: None Appearance: NAD, sitting up in bed Ears/Nose/Mouth/Throat: Mucous Membranes Moist Respiratory: Symmetrical Chest Expansion and Respiratory Effort, Clear to Auscultation Cardiovascular: NL Sounds; No Murmurs; No JVD, RRR Abdominal: NL Sounds; No Tenderness; No Distention Extremities: No Edema Skin: No Rash or Ulcers Neurological: Alert and Oriented x 3 - , some confusion, NL Muscle Strength and Tone Lines/Tubes/Other Access: Clean, Dry and Intact Peripheral IV - site benign Nutrition: Taking PO's Result Diagrams: 06/08/17 06:41 06/08/17 06:41 Additional Lab and Data: . Microbiology and Other Data: Microbiology 06/03/17 00:30 Nasal Screen MRSA (PCR)(TYLER) - Final Nasal Mrsa Positive Assess/Plan/Problems-Billing Ms. Cotto is a 66 y/o F w/ hx of CAD, atrial fibrillation (on Eliquis), kidney stones, UTI w/ encephalopathy, COPD, rheumatoid arthritis who presented to the emergency room with increased confusion found to have a UTI. - Patient Problems (1) Altered mental status Code(s): R41.82 - ALTERED MENTAL STATUS, UNSPECIFIED SNOMED Code(s): 086889041 Comment: - Improving but continues to have intermittent confusion. - Suspect Acute delirium secondary to UTI. - Appreciate neuro input, MRI normal. - Afebrile, no leukocytosis will hold on LP for now. - Appreciate Psych consult - Sertraline 50 mg daily and Seroquel 50 mg QHS for intermittent hallucinations and delusions. - Continue to hold tramadol and flexeril. - Follow-up with Dr. Sheldon as outpatient (2) UTI (urinary tract infection) Comment: - Culture growing entereobacter, resistent to multiple abx; allergic to fluoroquinolones - started on cefepime on 06/06. - Renal U/S negative for any hydronephrosis or stones. - Blood cultures negative to date. - Completed course of cefepime. (3) Atrial fibrillation Code(s): I48.91 - UNSPECIFIED ATRIAL FIBRILLATION SNOMED Code(s): 53242605 Comment: - NSR at this time. - Continue Cardizem, Toprol, Propafenone and Eliquis for anticoagulation. (4) HTN (hypertension) Code(s): I10 - ESSENTIAL (PRIMARY) HYPERTENSION SNOMED Code(s): 82092642 Comment: - Controlled, SBP 100-140's. - Continue Toprol, Cardizem, Lisinopril. (5) COPD (chronic obstructive pulmonary disease) Code(s): J44.9 - CHRONIC OBSTRUCTIVE PULMONARY DISEASE, UNSPECIFIED SNOMED Code(s): 82263572 Comment: - No signs of acute exacerbation at this time. - Continue home inhalers. (6) Dementia Code(s): F03.90 - UNSPECIFIED DEMENTIA WITHOUT BEHAVIORAL DISTURBANCE SNOMED Code(s): 37274103 Comment: - Continue Aricept and supportive care. (7) DVT prophylaxis Code(s): RIY3930 - SNOMED Code(s): 341969462 Comment: - Continue Eliquis. (8) Full code status Code(s): Z78.9 - OTHER SPECIFIED HEALTH STATUS SNOMED Code(s): 760194221 Status and Disposition: Inpatient for acute delirium in the setting of dementia with UTI. Stable for discharge to home today.
[2017-06-10] MEDS: Apixaban* 5 MG TAB PO SCH (10:36)
[2017-06-10] MEDS: PROPAFENONE 225 MG PO SCH (10:36)
[2017-06-10] MEDS: Magnesium Oxide TAB* 400 MG PO SCH (10:36)
[2017-06-10] MEDS: Senna TAB PO SCH ×2 (10:36→10:51)
[2017-06-10] MEDS: Diltiazem CD CAP* 180 MG PO SCH (10:36)
[2017-06-10] MEDS: Allopurinol TAB* 100 MG PO SCH (10:36)
[2017-06-10] MEDS: Furosemide TAB* 40 MG PO SCH (10:36)
[2017-06-10] MEDS: Cholecalciferol TAB* 1000 UNITS PO SCH (10:36)
[2017-06-10] MEDS: Donepezil TAB* 5 MG PO SCH (10:37)
[2017-06-10] MEDS: Lisinopril TAB* 5 MG PO SCH (10:37)
[2017-06-10] MEDS: Cefepime 1 GM in Dextrose(*) 1 GM/50 ML BAG IV SCH (10:50)
--- NOTE | 2017-06-11 07:05 | DS ---
CC: Dr. Janes Toledo; Dr. Ivette Sheldon * DISCHARGE SUMMARY: DATE OF ADMISSION: 06/02/17 DATE OF DISCHARGE: 06/10/17 ATTENDING PHYSICIAN: Dr. Nadir Mena * (dictated by Naina Lopes NP) PRIMARY CARE PROVIDER: Dr. Janes Toledo. PRIMARY DIAGNOSES: 1. Urinary tract infection. 2. Delirium secondary to urinary tract infection. SECONDARY DIAGNOSES: 1. History of coronary artery disease with myocardial infarction. 2. Hypertension. 3. Rheumatoid arthritis. 4. Chronic obstructive pulmonary disease. 5. Atrial fibrillation. 6. Dementia. CONSULTATIONS WHILE IN THE HOSPITAL: 1. Dr. Lul Carrasco and Dr. Donn Coker with Neurology. 2. Dr. Wilfred Augustine with Psychiatry. STUDIES WHILE IN THE HOSPITAL: 1. Brain CT on 06/02/17. Radiologist's impression: Stigmata of probable chronic small vessel ischemic disease and chronic small focus of encephalomalacia of the inferior left occipital lobe likely reflecting sequela of a previous infarct. No acute intracranial process evident. 2. Chest x-ray on 06/02/17. Radiologist's impression: Stigmata of obstructive lung disease. No acute pulmonary or cardiac process evident. 3. Brain CT on 06/03/17. Radiologist's impression: Stable chronic changes. No acute intracranial pathology. 4. Renal ultrasound on 06/03/17. Radiologist's impression: No evidence for hydronephrosis. Small right kidney. 5. Brain MRI on 06/03/17. Radiologist's impression: Not entirely specific the unchanged bilateral periventricular and some cortical white matter lesions of the frontal and parietal lobes most likely represent chronic small vessel ischemic disease. In the appropriate clinical setting, the differential would include demyelinating lesions or sequela of previous foci or inflammation. Unchanged small focus of encephalomalacia at the left occipital lobe. No acute intracranial process evident. 6. Electroencephalogram on 06/03/17. Neurology's clinical impression: Abnormal EEG due to generalized slowing and disorganization of background rhythms consistent with diffuse cerebral dysfunction. This is a technically limited study because of the patient's movement and agitation, but within limits of the study, no epileptiform features are identified. DISCHARGE MEDICATIONS: New home medications: 1. Seroquel 50 mg oral daily at bedtime. 2. Zoloft 50 mg oral daily. 3. Melatonin 3 mg oral daily at bedtime as needed for insomnia. 4. Vitamin D 2000 units oral daily. Continued home medications: 1. Metoprolol succinate 100 mg every evening. 2. Methenamine 1 g oral twice daily. 3. Atorvastatin 20 mg oral daily at bedtime. 4. Allopurinol 100 mg oral every morning. 5. Eliquis 5 mg oral twice daily. 6. Furosemide 40 mg oral every morning. 7. Breo Ellipta MDI 100/25 one puff inhalation every morning. 8. Metolazone 2.5 mg oral every Friday and . 9. Aricept 10 mg oral daily. 10. Diltiazem 180 mg oral daily. 11. Rythmol SR 225 mg oral twice daily. 12. Lisinopril 2.5 mg oral daily. 13. Fosamax 70 mg oral weekly. 14. Magnesium oxide 400 mg oral daily. 15. Vitamin B12 1000 mcg oral daily. Discontinued home medications: 1. Flexeril. 2. Tramadol. 3. Trazodone. HISTORY OF PRESENT ILLNESS/HOSPITAL COURSE: Ms. Cotto is a 66-year-old female with past medical history significant for coronary artery disease, hypertension, rheumatoid arthritis, COPD, atrial fibrillation, and dementia, who initially developed a urinary tract infection back in November of 2015 at which time she was bacteremic and quite confused. She was treated and her confusion resolved. According to neurology followup, the patient took quite some time to clear from her delirium after that initial urinary tract infection. The patient was placed on Aricept. She continues to live with her . She started becoming confused and had a cataract surgery canceled due to hypotension and the patient was complaining of abdominal pain and noted to be more weak. The patient brought her to the emergency room for further evaluation of her symptoms. While in the emergency room, the patient had no leukocytosis. She had a urinalysis that was slightly positive with 2+ esterase and 2+ wbc's. She received a dose of ceftriaxone and the hospitalists were asked to evaluate her for admission. While in the hospital, the patient was continued on IV ceftriaxone while we awaited culture results. The patient continued to be confused. She was seen in consultation by Dr. Carrasco with Neurology. She had an MRI, repeat brain CT , and EEG without significant findings. She continued to have no leukocytosis and afebrile. When the patient continued to be confused, we asked Psychiatry to see the patient to assist with delirium management. It was ultimately felt that the patient had acute delirium secondary to her acute urinary tract infection and the patient's cultures came back showing that her enterobacter UTI was resistant to ceftriaxone. She was switched over to cefepime. The patient received 4 days of IV cefepime. Her blood cultures had no growth on day 5. The patient was started on Seroquel and Zoloft; these were titrated up. It was felt that the patient was on her max dose of Seroquel due to her history of dementia and history of arrhythmias. It was felt that it was not safe to titrate the Seroquel any further. The patient continued to be confused but this did improve and her family felt as though they could manage her at home. Ms. Cotto is stable for discharge to home today. Vital signs are as follows : Temperature 98.2, heart rate 78, respiratory rate 17, O2 sat 96% on room air, and blood pressure 109/46. DISCHARGE PLAN: Ms. Cotto will be discharged to home. ACTIVITY: As tolerated. DIET: She will be on a regular diet. As far as her urinary tract infection, she has completed a course of IV antibiotics. For her acute delirium, this appears to be improving. I suspect she will continue to improve when she is back home in her home environment. She has a follow-up appointment with Dr. Sheldon on 08/15/17 at 10 a.m. They placed her on a cancelation list and will call sooner if they have a cancelation and they can fit her in. The patient's has been instructed to call if she continues to have increased confusion and needs to be seen sooner. The patient has a followup appointment with her primary care provider, Dr. Toledo, on 06/16/17 at 1:40 p.m. We stopped the patient's tramadol, Flexeril, and trazodone as it was felt that this could be contributing to her confusion. She was found to have low vitamin D level and was started on vitamin D 2000 units oral daily. The patient was also encouraged to use melatonin available [id number] as needed for sleep. She has been asked to return to the emergency room for any chest pain or shortness of breath. She has been set up with visiting nurse services. This is a summarized report of a complex medical history and hospital stay. For further details, please see the entire medical record. TIME SPENT: Time for this discharge was approximately 50 minutes, greater than half of that was spent with the patient [id number] discussing discharge plans and instructions in addition to talking to the patient's , Parveen, on the phone. CONDITION ON DISCHARGE: Stable. Reviewed by JENNIFER MIRZA 06/11/17 [id number] [id number]/[facility] #: [id number] YEHUDA
== END 2017-06-10 13:00 | disposition home health service (06) | DRG 463 ==
LOC: ED 13:36 → MED 17:49 → OBSVTOIN 06-03 09:00 → MED 06-03 23:23
PROVIDERS: ADMIT Internal Medicine; ATTEND Hospitalist
PROC: 4A00X4Z Measurement of Central Nervous Electrical Activity, External Approach (ICD-10-PCS; principal; 2017-06-03)
DX: N39.0 Urinary tract infection, site not specified (principal); F05 Delirium due to known physiological condition; R45.851 Suicidal ideations; G93.89 Other specified disorders of brain; I48.91 Unspecified atrial fibrillation; R47.01 Aphasia; B96.89 Other specified bacterial agents as the cause of diseases classified elsewhere; I25.10 Atherosclerotic heart disease of native coronary artery without angina pectoris; I10 Essential (primary) hypertension; M06.9 Rheumatoid arthritis, unspecified; J44.9 Chronic obstructive pulmonary disease, unspecified; F03.90 Unspecified dementia, unspecified severity, without behavioral disturbance, psychotic disturbance, mood disturbance, and anxiety; Z96.643 Presence of artificial hip joint, bilateral; Z96.653 Presence of artificial knee joint, bilateral; E78.00 Pure hypercholesterolemia, unspecified; G47.30 Sleep apnea, unspecified; M19.90 Unspecified osteoarthritis, unspecified site; H26.9 Unspecified cataract; R40.2412 Glasgow coma scale score 13-15, at arrival to emergency department; Z16.24 Resistance to multiple antibiotics; F32.9 Major depressive disorder, single episode, unspecified; I25.2 Old myocardial infarction; Z85.828 Personal history of other malignant neoplasm of skin; Z90.49 Acquired absence of other specified parts of digestive tract; Z98.84 Bariatric surgery status; Z88.1 Allergy status to other antibiotic agents; Z88.8 Allergy status to other drugs, medicaments and biological substances; Z82.49 Family history of ischemic heart disease and other diseases of the circulatory system; Z87.440 Personal history of urinary (tract) infections; Z87.442 Personal history of urinary calculi; Z87.01 Personal history of pneumonia (recurrent); Z98.41 Cataract extraction status, right eye; Z79.01 Long term (current) use of anticoagulants
CPT/HCPCS: 36415; 70450; 70551; 71020; 76775; 80048; 80053; 80307; 80320; 80329; 81003; 81015; 82140; 82306; 82607; 83880; 84443; 84484; 85025; 86140; 87040; 87077; 87086; 87186; 87641; 93005; 94640; 94760; 95816; A9270-GY; G0378; G0480; J0692; J0696; J2060; J2405

== ENCOUNTER 2017-08-13 08:06 | Emergency (ER) | payer OTHER ==
--- OUTSIDE RECORDS SUMMARY | 2017-08-13 08:22 | XMS REPORT ---
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 Janes Toledo MD Primary Care Physician Unavailable Payers Type Date Identification Numbers Payment Provider Subscriber Commercial Expires: Policy Number: [facility] Jessica Cotto 2015 [id number] PayID: [id number] [address] [address] [place] [address] Medigap Part B Effective: 2015 Policy Number: Medicaid Jessica Cotto [id number] Expires: 2015 Group Name: 1 1 [address] PayID: [id number] [place] [address] Commercial Policy Number: [id number] [employer] Jessica Cotto PayID: [id number] [address] [address] [place] [address] Problems Date Description Provider Status Onset: 08/02/2015 Spinal stenosis of lumbar region Lul Covarrubias M.D. 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 Active condition Onset: 06/17/2017 Unspecified dementia without Donn Coker M.D. Active behavioral disturbance Onset: 03/28/2017 Idiopathic peripheral neuropathy Ivette Sheldon MD Active Onset: 03/28/2017 Minimal cognitive impairment Ivette Sheldon MD Active Onset: 11/19/2016 Late effects of intracranial abscess Ivette Sheldon MD Active or pyogenic infection Family History Date Family Member(s) Problem(s) Comments General [place] General Heart Disease General Atrial Fibrillation Father due to [place] () - age 58 Mother Pulmonary hypertension Mother Alzheimer's Disease Mother at age 81 (in 2007) Siblings 2 Olders sisters, both healthy Social History Type Date Description Comments Marital Status Lives With Family Occupation Retired Cigarette Use Never Smoked Cigarettes ETOH Use Denies alcohol use Smoking Patient has never smoked Recreational Drug Use Denies Drug Use Daily Caffeine Diet soda occasionally Exercise Type/Frequency Exercises sporadically PT twice a week Allergies, Adverse Reactions, Alerts Date Description Reaction Status Severity Comments 08/02/2015 Provera Urticaria active Urticaria 08/02/2015 Floxin Urticaria active Urticaria Medications Medication Date Status Form Strength Qnty SIG Indications Ordering Provider Lisinopril 05/22 Active Tablets 2.5mg 90tab 1 by Luis Reeves s mouth DO Emery every day FACC (on hold since 05/29/17) Vitamin B-12 05/19 Active Tablets 1000mcg 30tab take 1 s daily by MD Pito mouth Donepezil HCL 03/28 Active Tablets 5mg 60tab take 2 G31.84 s tablet by MD Pito mouth qd Breo Ellipta 01/08 Active Aerosol 100-25mcg 60uni 1 puff Phyllis /2016 /Inh ts inhaled MD Ziggy daily Magnesium Oxide 10/25 Active Tablets 400mg 180ta 2 by Luis Reeves /2016 bs mouth DO Emery every day FACC Trazodone HCL 10/15 Active Tablets 50mg 1 tablet at bedtime as needed (pt takes 1 tab every night) Metoprolol 07/19 Active Tablets ER 100mg 90tab 07/22 Luis Reeves Succinate 24HR s tablet by DO Emery mouth FACC every day Propafenone HCL 06/20 Active Caps ER 225mg 180ca 1 by Luis Reeves ER 12HR ps mouth Emery, DO twice a FACC day Diltiazem CD 04/17 Active Caps ER 180mg 1 by 24HR mouth every day Furosemide 04/17 Active Tablets 40mg 1 by mouth every other day Fish Oil 01/23 Active Capsules 1000mg 1 by Unknown mouth bid Tramadol Active Tablets 37.5-325m take 2 Unknown Hydrochloride/Reilly /0000 g tablets taminophen twice a day Eliquis Active Tablets 5mg 1 by Unknown /0000 mouth twice daily Cyclobenzaprine Active Tablets 10mg take one Unknown HCL /0000 tablet by mouth twice daily Allopurinol Active Tablets 100mg 1 by Unknown /0000 mouth once daily Atorvastatin Active Tablets 20mg take 1 Unknown Calcium /0000 tablet at bedtime Methenamine Active Tablets 1gm 1 by Unknown Hippurate /0000 mouth twice a day Amoxicillin Active Capsules 500mg 4 tablets Unknown /0000 1 hour before dental work Alendronate Active Tablets 70mg 1 by Unknown Sodium /0000 mouth weekly Zaroxolyn Active Tablets 2.5mg 1 tab Unknown /0000 Friday and Oxygen 04/21 Hx Misc 1unit please R09.02 Phyllis /2017 s d/c o2 at MD Ziggy - night, pt 07/17 doesn want to continue using O2 Chlorthalidone 03/28 Hx Tablets 25mg 45tab /2 by Ivette s mouth MD Pito - every day 03/28 Ccdfvfefdff 03/28 Hx Ivette MD Pito - 03/28 Donepezil HCL 11/19 Hx Tablets 5mg 14tab take 1 G30.0 Ivette s tablet by MD Pito - mouth 03/27 night for 2 weeks then stop (finish on 12/06/16) Lasix 10/08 Hx Tablets 40mg 90tab 1 by Phyllis s mouth MD Ziggy - every day 10/15 Metoprolol 07/08 Hx Tablets ER 50mg 90tab 1 by Luis Watt 24HR s mouth DO Emery - every day FACC 07/19 Metoprolol 06/21 Hx Tablets ER 25mg 30tab 1 by Luis Reeves Succinate 24HR s mouth DO Emery - every day [facility] 07/08 Multaq 06/19 Hx Tablets 400mg 60tab 1 by Erasmo s mouth Anne Schilling, - twice a M.D. Oxygen 04/26 Hx Misc 1unit please Phyllis /2016 s use o2 at MD Ziggy - 2l/min at 04/21 Donepezil HCL 03/22 Hx Tablets 10mg 90tab 1 by G30.0 Ivette s mouth MD Pito - every day 11/19 Symbicort 01/23 Hx Aerosol 160-4.5mc 2 puff g/Act twice a - day 03/27 Probiotic 01/23 Hx Capsules 1 by mouth - every day 03/06 Boniva 01/23 Hx Tablets 150mg 1 tab by mouth - every take it 1 h before first food/drin k/med, avoid lying down 1 h Donepezil HCL 12/14 Hx Tablets 5mg 30tab take 1 G30.9 s tablet by MD Pito - mouth 03/22 night Potassium Citrate Hx Tablets ER 10Meq 2 tablets Unknown ER /0000 (1080 mg) twice - daily 05/11 Prednisone Hx Tablets 20mg take 1 Unknown /0000 tablet - twice a 11/13 day for days Hydrochlorothiazi Hx Tablets 25mg 2 by Unknown de /0000 mouth - every day 05/22 Cartia XT 0000 Hx Caps ER 180mg 1 by Unknown /0000 24HR mouth - every day 01/23 Lisinopril 00 Hx Tablets 10mg 1 by Unknown /0000 mouth - every day 05/22 Metoprolol 00/00 Hx Tablets ER 50mg 1/2 by Unknown Succinate ER /0000 24HR mouth - every day 06/21 Zoloft 00/00 Hx Tablets 50mg 1 by Unknown /0000 mouth - every day 11/11 Aspirin Adult Low 00/ Hx Chewtabs 81mg 1 by Unknown Strength /0000 mouth - every day 12/[address] 20mg 1 by Unknown /0000 mouth - every day 11/11 Trazodone HCL Hx Tablets 50mg 1 tablet Unknown /0000 at - bedtime 11/11 as needed Lovaza Hx Capsules 1gm take one Unknown /0000 capsule - by mouth 11/11 twice a day Ferrousul Hx Tablets 325(65Fe) 1 by Unknown /0000 mg mouth - every day 03/06 Budesonide Hx Suspension two puffs Unknown / bid prn - 01/23 Furosemide Hx Tablets 20mg 1 by Unknown /0000 mouth as - needed 12/13 Magnesium Oxide Hx Tablets 500mg take 2 Paige tablet by Jt Gonzalez - mouth a Multivitamins Hx Capsules 1 by Unknown /0000 mouth - every day 01/23 Lasix Hx Tablets 20mg 1 by Unknown /0000 mouth - every day 01/[address] Hx Table[address] 81mg 1 by Unknown /0000 mouth - every day 12/13 Prednisone 00 Hx Tablets 20mg 3 po x3 Breiman, / days, 2 MD Janes - po x 12/02 3days, then 2 po x 3days then 1 po x 3days Vital Signs Date Vital Result Comment 07/18/2017 Height 60 inches 5'0" Weight 186.00 lb Heart Rate 66 /min BP Systolic Sitting 108 mmHg BP Diastolic Sitting 66 mmHg Respiratory Rate 16 /min BMI (Body Mass Index) 36.3 kg/m2 06/17/2017 Height 60 inches 5'0" Weight 182.00 lb Heart Rate 68 /min BP Systolic 98 mmHg BP Diastolic 50 mmHg Respiratory Rate 14 /min BMI (Body Mass Index) 35.5 kg/m2 05/22/2017 Height 60 inches 5'0" Weight 198.00 lb with shoes Heart Rate 62 /min BP Systolic Sitting 98 mmHg Lue reg cuff BP Diastolic Sitting 65 mmHg Lue reg cuff BP Systolic Standing 104 mmHg Lue reg cuff BP Diastolic Standing 64 mmHg Lue reg cuff Respiratory Rate 16 /min BMI (Body Mass Index) 38.7 kg/m2 04/21/2017 Height 60 inches 5'0" Weight 195.00 lb Heart Rate 60 /min BP Systolic Sitting 104 mmHg BP Diastolic Sitting 60 mmHg Respiratory Rate 14 /min O2 % BldC Oximetry 97 % BMI (Body Mass Index) 38.1 kg/m2 03/28/2017 Height 60 inches 5'0" Weight 201.12 lb Heart Rate 74 /min BP Systolic 118 mmHg BP Diastolic 82 mmHg BMI (Body Mass Index) 39.3 kg/m2 12/03/2016 Height 60 inches 5'0" Weight 198.75 lb No shoes Heart Rate 70 /min BP Systolic Sitting 120 mmHg Lue reg cuff BP Diastolic Sitting 72 mmHg Lue reg cuff BP Systolic Standing 116 mmHg Lue reg cuff BP Diastolic Standing 68 mmHg Lue reg cuff Respiratory Rate 17 /min BMI (Body Mass Index) 38.8 kg/m2 Ejection Fraction 55-60% 07/05/2015-echo 11/19/2016 Height 60 inches 5'0" Weight 198.00 lb Heart Rate 68 /min BP Systolic Sitting 108 mmHg BP Diastolic Sitting 68 mmHg Respiratory Rate 17 /min BMI (Body Mass Index) 38.7 kg/m2 10/16/2016 Height 60 inches 5'0" Weight 198.00 lb reported Heart Rate 78 /min BP Systolic 118 mmHg BP Diastolic 82 mmHg Respiratory Rate 14 /min O2 % BldC Oximetry 96 % BMI (Body Mass Index) 38.7 kg/m2 08/06/2016 Height 60 inches 5'0" Weight 198.00 lb with shoes Heart Rate 78 /min BP Systolic Sitting 110 mmHg LA lrg cuff BP Diastolic Sitting 70 mmHg LA lrg cuff BP Systolic Standing 106 mmHg LA lrg cuff BP Diastolic Standing 70 mmHg LA lrg cuff BMI (Body Mass Index) 38.7 kg/m2 Ejection Fraction 55% - 60% echo 07/05/15 06/27/2016 Height 60 inches 5'0" Weight 195.00 lb with shoes Heart Rate 80 /min BP Systolic Sitting 110 mmHg Rue lg cuff BP Diastolic Sitting 60 mmHg Rue lg cuff BP Systolic Standing 104 mmHg Rue lg cuff BP Diastolic Standing 60 mmHg Rue lg cuff Respiratory Rate 17 /min BMI (Body Mass Index) 38.1 kg/m2 Ejection Fraction 55-60% 07/05/2015 06/06/2016 Height 60 inches 5'0" Weight 193.00 lb Heart Rate 80 /min BP Systolic Sitting 112 mmHg LA reg cuff BP Diastolic Sitting 72 mmHg LA reg cuff BP Systolic Standing 108 mmHg LA BP Diastolic Standing 70 mmHg LA Respiratory Rate 16 /min BMI (Body Mass Index) 37.7 kg/m2 Ejection Fraction 55-60% 07/05/15 04/18/2016 Height 60 inches 5'0" Weight 191.00 lb Heart Rate 93 /min BP Systolic Sitting 130 mmHg BP Diastolic Sitting 78 mmHg Respiratory Rate 16 /min O2 % BldC Oximetry 96 % BMI (Body Mass Index) 37.3 kg/m2 03/22/2016 Height 60 inches 5'0" Weight 185.00 lb Heart Rate 84 /min BP Systolic Sitting 122 mmHg BP Diastolic Sitting 68 mmHg Respiratory Rate 14 /min BMI (Body Mass Index) 36.1 kg/m2 03/07/2016 Height 60 inches 5'0" Weight 186.00 lb Heart Rate 83 /min BP Systolic 128 mmHg BP Diastolic 82 mmHg Respiratory Rate 14 /min O2 % BldC Oximetry 93 % BMI (Body Mass Index) 36.3 kg/m2 01/25/2016 Height 60 inches 5'0" Weight 186.38 lb with shoes on Heart Rate 84 /min BP Systolic Sitting 132 mmHg BP Diastolic Sitting 78 mmHg Respiratory Rate 18 /min O2 % BldC Oximetry 94 % BMI (Body Mass Index) 36.4 kg/m2 12/15/2015 Height 60 inches 5'0" Weight 187.00 lb Heart Rate 84 /min BP Systolic Sitting 100 mmHg BP Diastolic Sitting 62 mmHg Respiratory Rate 14 /min BMI (Body Mass Index) 36.5 kg/m2 12/14/2015 Height 60 inches 5'0" Weight 187.00 lb with shoes Heart Rate 78 /min regular BP Systolic 128 mmHg left arm large cuff BP Diastolic 76 mmHg left arm large cuff BP Systolic Sitting 128 mmHg right arm large cuff BP Diastolic Sitting 80 mmHg right arm large cuff BP Systolic Standing 132 mmHg right arm large cuff BP Diastolic Standing 82 mmHg right arm large cuff Respiratory Rate 18 /min BMI (Body Mass Index) 36.5 kg/m2 08/21/2015 Height 60 inches 5'0" Weight 191.00 lb Heart Rate 76 /min BP Systolic Sitting 140 mmHg BP Diastolic Sitting 80 mmHg Pain Level 5 BMI (Body Mass Index) 37.3 kg/m2 08/02/2015 Height 60 inches 5'0" Weight 191.00 lb BP Systolic Sitting 124 mmHg BP Diastolic Sitting 7072 mmHg Pain Level 5 BMI (Body Mass Index) 37.3 kg/m2 Results Test Date Test Result H/L Range Note Inr/Protime 08/18/2015 Inr 0.95 0.89-1.11 Platelet Count 08/18/2015 Platelet Count 197 10^3/uL 150-450 Mean Platelet Volume 8 um3 7.4-10.4 Procedures Date CPT Code Description Status 06/03/2017 15265 EEG Recording Awake & Drowsy Completed 05/22/2017 40057 EKG Tracing & Interpretation Completed 04/01/2017 29368 Nerve Conduction 05-06 Studies Completed 04/01/2017 83953 Needle Electromyography Complete, Five Or More Muscles Completed Studied 12/03/2016 33940 EKG Tracing & Interpretation Completed 08/06/2016 60691 EKG Tracing & Interpretation Completed 06/27/2016 70895 EKG Tracing & Interpretation Completed 06/11/2016 90058 Event Monitor/Phys Review/Interp. Completed 03/04/2016 33692 Diffusing Capacity Completed 03/04/2016 55837 Plethysmography Determination Lung Volumes & Per Completed Airway Resist 03/04/2016 61114 Pulmonary Function><Bronchodil Completed 02/08/2016 05644 Polysomnography Sleep Staging 4+ Parameters Completed 12/14/2015 26520 EKG Tracing & Interpretation Completed 06/07/2010 27172 EKG, Interpretation Only Completed Encounters Type Date Location Provider CPT E/M Dx Office Visit 06/17/2017 [facility] Donn Coker 02654 F03.90 12:00p [facility] Jt F05 Office Visit 06/10/2017 [facility] Naina Lozoya, 94629 R41.82 1:42p Assoc,tisha CLERK [employer] Hospitalists I48.91 N30.00 F02.80 Office Visit 06/09/2017 2:51p [facility] Donn Coker 09862 F03.Laura Waters N39.0 B96.89 F05 Office Visit 06/09/2017 [facility] Naina Lozoya, 11917 R41.82 1:41p Assoc,tisha CLERK [employer]AIL Hospitalists I48.91 N30.00 Office Visit 06/08[facility]2017 [facility] [employer] 17821 R41.82 Assoc,pc Hospitalists I48.91 N30.00 F02.80 Office Visit 06/07/2017 1:40p [facility] Teena Salgado, CLERK [employer]AIL [address]1166 R41.82 Assoc,pc Hospitalists I48.91 N30.00 F02.80 Office Visit 06/06/2017 [place] [facility] Chew Darell, [address]9546 R41.82 1:39p Assoc,pc CLERK [employer] Hospitalists N30.00 I48.91 F02.80 Office Visit 06/05/2017 [facility] Naina Darell, 72843 R41.82 1:39p Assoc, CLERK [employer] Hospitalists N30.00 I48.91 F02.80 [facility]. 01118 R41.82 Hospitalists I48.91 N30.00 F02.80 Office Visit 06/04/2017 2:50p [facility] Lul Carrasco, 37551 F03.90 M.D. N39.0 B96.89 F05 Office Visit 06/03/2017 [facility] Kelly, N.P. 49083 R41.82 Hospitalists N30.00 I48.91 F02.80 Office Visit 06/03/2017 2:42p [facility] Lul Carrasco, 78914 F03.90 M.D. N39.0 B96.89 F05 Office Visit 06/02/2017 1:37p [facility] Assoc, Julissa Kelly, N.P. 87244 R41.82 Hospitalists I48.91 N30.00 F02.80 Office Visit 05/22/2017 8:40a [facility] [place] [address] I48.0 [facility] I10 J44.9 R60.0 G31.84 Office Visit 04/21/2017 9:15a [facility] [place] [address] J44.9 [facility] R09.02 G47.33 E66.09 Office Visit 03/28/2017 9:00a [facility] [address] G31.84 G60.9 M48.06 Office Visit 12/03/2016 8:20a [facility], [address]1627 I48.0 Instructional Facilitator FACC J44.9 G47.33 R60.0 I10 E78.5 Office Visit 11/19/2016 10:30a [facility] [place] [address] G09 Of Instructional Facilitator R41.89 Office Visit 10/16/2016 8:30a [facility] [place] [address] J44.9 Services Of Instructional Facilitator G47.33 E66.09 R09.02 Office Visit 08/06/2016 8:20a [facility], [address]4928 I48.0 Instructional Facilitator FACC I10 J44.9 G47.33 E78.5 R60.0 Office Visit 06/27/2016 10:45a [facility], [address]2592 I48.0 Instructional Facilitator FACC I10 J44.9 G47.33 E78.5 R60.0 Office Visit 06/06/2016 2:00p [facility], [address]9741 I48.0 Instructional Facilitator FACC I10 J44.9 G47.33 E78.5 Office Visit 04/18/2016 8:15a [facility] [place] [address] G47.33 Services Of Instructional Facilitator J44.9 E66.09 Office Visit 03/22/2016 9:30a [facility] [place] [address] G30.0 Of Instructional Facilitator G60.9 Office Visit 03/07/2016 8:30a [facility] [place] [address] G47.33 Services Of Instructional Facilitator J44.9 E66.09 Office Visit 01/25/2016 11:30a [facility] [place] [address] G47.9 Services Of Instructional Facilitator J44.9 E66.09 Office Visit 12/15/2015 9:30a [facility] [place] [address] G30.0 Of Instructional Facilitator G60.9 Office Visit 12/14/2015 9:00a [facility] Of Luis SKaroline [place], [address] I48.0 [facility] FACC I10 E78.5 J44.9 R60.0 I25.2 Z87.11 D64.9 Office Visit 11/26/2015 2:53p [facility],pc [facility], 61920 N17.9 Hospitalists M.D. I48.91 A41.9 I10 Office Visit 11/25/2015 2:53p [facility],pc Marcelo Dover, 69790 N17.9 Hospitalists M.D. I48.91 A41.9 I10 Office Visit 11/24/2015 2:52p [facility] Paigebecki Gonzalez, 38714 I48.91 Assoc, Hospitalists M.D. N17.9 A41.9 I10 Office Visit 11/23/2015 2:50p [facility], Paige Gonzalez, 71451 N17.9 Hospitalists M.D. I48.91 A41.9 I10 Office Visit 11/22/2015 2:49p [facility], Jose Bose, 72181 N17.9 Hospitalists N.P. A41.9 I10 Office Visit 08/21/2015 11:15a [facility] Lul Covarrubias, 38600 M48.06 Of Greg MRiri Office Visit 08/02/2015 3:00p [facility] Lul Covarrubias, 95866 M48.06 Of [facility] MRiri Plan of Care Future Appointment(s):08/15/2017 10:00 am - Ivette Sheldon MD at [facility] Ecyezm2804/21/2018 9:00 am - Phyllis Trinh MD at [facility]09/29/2017 10:30 am - Ivette Sheldon MD at [facility] Ojlzbi1807/18/2017 - Ivette Sheldon MDF03.90 Unspecified dementia without behavioral disturbanceFollow up:reschedule for Aug 15 if still availableRecommendations:continue donepezil 10mg daily we will recheck some blood work including DANIEL and Sjogren's lijcnohbskJ72.9 Hereditary and idiopathic neuropathy, unspecifiedFollow up::Recommendations:your EMG showed evidence of a neuropathy and your B12 was a bit low, which can cause a neuropathy. You also had an elevated marker of autoimmune disease and we need to follow up on that.
[2017-08-13] MEDS ORDERED: NS 0.9% 1000 ML* 1,000 ML IV ONE ×2 (08:29→12:30)
[2017-08-13 09:32] LABS: ABS Basophils 0 10^3/ul (0-0.2); ABS Eosinophils 0.1 10^3/ul (0-0.6); ABS Lymphocytes 0.6 10^3/ul (1.0-4.8); ABS Monocytes 0.8 10^3/ul (0-0.8); ABS Neutrophils 7.4 10^3/ul (1.5-7.7); ABS Nucleated RBC 0 10^3/ul; Eosinophil % 0.6 % (0-6); Hematocrit 26 % (35-47); Hemoglobin 9.1 g/dl (12.0-16.0); Lymphocyte % 7.2 % (25-47); Mean Corpuscular HGB Conc 35 g/dl (31-36); Mean Corpuscular Hemoglobin 30 pg (27-31); Mean Corpuscular Volume 86 fL (80-97); Mean Platelet Volume 7 um3 (7.4-10.4); Nucleated Red Blood Cells % 0; Platelet Count 232 10^3/ul (150-450); Red Blood Count 3.03 10^6/ul (4.0-5.4); Red Cell Distribution Width 16 % (10.5-15)
[2017-08-13 09:47] LABS: EGFR Non-African American 28.4 (>60)
[2017-08-13] MEDS ORDERED: Morphine INJ* 4 MG/ML 1 ML CARPUJECT IV ONE (10:09)
--- NOTE | 2017-08-13 10:13 | RAD ---
INDICATION: Right flank abdominal pain. COMPARISON: Comparison is made with a prior CT of the abdomen and pelvis from November 22, 2015. TECHNIQUE: A CT scan of the abdomen and pelvis was performed without intravenous or oral contrast. Contiguous axial sections were obtained from the lung bases through the symphysis pubis. Images were reconstructed in the coronal and sagittal planes. FINDINGS: There is mild dependent bilateral lower lobe subsegmental atelectasis. No pleural effusion is present. The liver and spleen are normal in size without significant focal abnormality on this noncontrast study. The patient is status post cholecystectomy. The pancreas appears to be within normal limits. The adrenal glands appear to be within normal limits. The right kidney is small in size with areas of cortical thinning and scarring. There is a small right renal cyst. There are several small 1 to 3 mm calculi in the lower pole of the right kidney. There is mild dilatation of the right renal calyces. The right ureter is dilated to the level of the pelvis. The distal portion of the ureter is obscured secondary metallic artifact fracture from bilateral hip replacement surgeries. The aorta is normal in caliber with moderate calcific plaque present. No significant enlarged retroperitoneal lymph nodes are seen. The patient appears to be status post Vandana-en-Y gastric bypass surgery. The stomach, small and large bowel appear nondistended. The patient is status post appendectomy by history. There is no evidence for diverticulitis or colitis. The uterus is anteverted and normal in size. No free intraperitoneal air or fluid is seen. Postsurgical changes are noted in the lower lumbar spine. The patient is also status post total bilateral hip replacement surgeries. IMPRESSION: 1. SMALL RIGHT KIDNEY WITH CORTICAL SCARRING. THERE ARE SEVERAL NONOBSTRUCTING RIGHT RENAL CALCULI. IN ADDITION THERE IS MILD RIGHT HYDRONEPHROSIS. NO URETERAL CALCULI ARE SEEN ALTHOUGH THE DISTAL RIGHT URETER IS OBSCURED SECONDARY TO METALLIC ARTIFACT. 2. STATUS POST CHOLECYSTECTOMY, GASTRIC BYPASS SURGERY AND APPENDECTOMY.
[2017-08-13 10:45] LABS: Urine Appearance Cloudy; Urine Blood 1+ (Negative); Urine Color Yellow; Urine Ketones Negative (Negative); Urine Protein Negative (Negative); Urine Specific Gravity 1.009 (1.010-1.030); Urine Urobilinogen Negative (Negative)
[2017-08-13] MEDS ORDERED: Potassium Chlor TAB* 20 MEQ TAB.ER PO ONE (12:11)
[2017-08-13 13:37] LABS: Urine Appearance Cloudy; Urine Blood 1+ (Negative); Urine Color Yellow; Urine Ketones Negative (Negative); Urine Protein Negative (Negative); Urine Specific Gravity 1.009 (1.010-1.030); Urine Urobilinogen Negative (Negative)
--- NOTE | 2017-08-13 14:19 | RAD ---
INDICATION: Right flank pain. History of kidney stones COMPARISON: None TECHNIQUE: Longitudinal and transverse scans of the kidneys were obtained. FINDINGS: Kidneys: Right kidney: The right kidney is mildly atrophic measuring 8.8 x 3.5 x 3.8 cm. There is 1.3 cm cyst in the upper pole. No hydronephrosis or calculi are seen. Left kidney: The left kidney is normal in size and echogenicity. No masses or calculi or hydronephrosis is seen. Other: The left ureteral jet appears normal. The right ureteral jet is not seen. IMPRESSION: NO EVIDENCE OF HYDRONEPHROSIS OF EITHER KIDNEY. NONVISUALIZATION OF THE RIGHT URETERAL JET
[2017-08-13] MEDS ORDERED: oxyCODONE/Acetamin 5/325 MG* TAB PO ONE (14:22)
--- NOTE | 2017-08-13 14:25 | RAD ---
HISTORY: Flank pain COMPARISONS: CT dated August 13, 2017 VIEWS: Frontal views of the abdomen. FINDINGS: BOWEL: There is a nonspecific bowel gas pattern, with nondilated small bowel gas noted. There is gaseous distention of the small bowel without dilatation. CALCULI: The renal calculi noted on CT are not well visualized on the current examination. BONES AND SOFT TISSUES: The patient is status post bilateral hip arthroplasty. There is postsurgical change to the spine. OTHER FINDINGS: The lung bases are clear. There is no subphrenic gas. IMPRESSION: 1. NONSPECIFIC BOWEL GAS PATTERN WITH GASEOUS DISTENTION OF THE SMALL BOWEL WITHOUT DILATATION. 2. THE RENAL CALCULI NOTED ON CT ARE NOT WELL VISUALIZED ON THE CURRENT EXAMINATION.
[2017-08-13] MEDS ORDERED: cefTRIAXone(*) 1 GM in NS 0.9% 50 ML* 50 ML IVPB ONE (14:50)
[2017-08-13 16:00] VITALS: BP 105/61
--- NOTE | 2017-08-13 18:10 | ED ---
Thuy Powell Nilda, scribed for Otto Rudolph MD on 08/13/17 at 0951 . GI/ HPI - HPI Summary HPI Summary: This patient is a 67 year old F presenting to [facility] accompanied by daughter with a chief complaint of constant aching R-flank pain since this morning. The patient rates the pain 6/10 in severity. Symptoms aggravated by nothing and alleviated by positioning. Patient reports nausea, but denies vomiting. Pt notes prior hospitalization for urine sepsis (May 2017). Pt states she saw urologist Dr. Justice for follow up yesterday, but was unable to give urine sample. Pt denies pain yesterday. PMHx includes renal calculi. - History of Current Complaint Chief Complaint: EDFlankPain Time Seen by Provider: 08/13/17 08:29 Stated Complaint: RT SIDE PAIN Hx Obtained From: Patient Onset/Duration: Started Hours Ago, Still Present Timing: Constant Current Severity: Moderate Pain Intensity: 6 Location of Pain: Flank - right Pain Characteristics: Aching Associated Signs and Symptoms: Positive: Other: - reports nausea, but denies vomiting Aggravating Factor(s): Nothing Alleviating Factor(s): Position - Additional Pertinent History Primary Care Physician: [id number] - Allergy/Home Medications Allergies/Adverse Reactions: Allergies Allergy/AdvReac Type Severity Reaction Status Date / Time Medroxyprogesterone Allergy Severe Rash Verified 05/27/17 08:16 [From Provera] Ofloxacin [From Floxin] Allergy Severe Rash Verified 05/27/17 08:16 Home Medications: Home Medications Albuterol HFA INHALER* [Ventolin HFA Inhaler*] 2 puff INH Q4H PRN 08/13/17 [ History Confirmed 08/13/17] Cyclobenzaprine TAB* [Flexeril 10 MG TAB*] 10 mg PO BID 08/13/17 [History Confirmed 08/13/17] Lisinopril TAB* [Prinivil TAB*] 2.5 mg PO DAILY 08/13/17 [History Confirmed ] Potassium Chlor TAB* [Klor Con ER TAB*] 10 meq PO DAILY 08/13/17 [History Confirmed 08/13/17] Ranitidine TAB (NF) [Zantac TAB (NF)] 150 mg PO BID 08/13/17 [History Confirmed 08/13/17] PMH/Surg Hx/FS Hx/Imm Hx Endocrine/Hematology History: Reports: Hx Anticoagulant Therapy, Hx Anemia - HX OF - STARTED ON B12 PER PATIENT FOR THIS Denies: Hx Diabetes Cardiovascular History: Reports: Hx Cardiac Arrest, Hx Hypercholesterolemia, Hx Hypertension, 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 Denies: Hx Pacemaker/ICD Respiratory History: Reports: Hx Chronic Obstructive Pulmonary Disease (COPD), Hx Pneumonia, Hx Sleep Apnea, Other Respiratory Problems/Disorders - USES O2 AT NIGHT 2L Denies: Hx Asthma GI History: Reports: Hx Ulcer - bleeding ulcer 2008 History: Reports: Hx Kidney Infection - HX OF, Hx Kidney Stones - HX OF, Other Problems/Disorders - UTIs- LAST 04/2017 Denies: Hx Renal Disease Musculoskeletal History: Reports: Hx Arthritis - "THROUGHOUT BODY", Hx Rheumatoid Arthritis, Hx Back Problems, Hx Bursitis, Other Musculoskeletal History - osteoporosis//SPINAL STENOSIS- STATES 2 SURGERIES FOR Sensory History: Reports: Hx Cataracts - LEFT EYE, Hx Contacts or Glasses - reading Denies: Hx Hearing Aid Opthamlomology History: Reports: Hx Cataracts - LEFT EYE, Hx Contacts or Glasses - reading Neurological History: Reports: Hx Dementia, Hx Headaches Psychiatric History: Denies: Hx Panic Disorder - Cancer History Cancer Type, 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 HIP REPLACEMENT BILATERAL. KNEE REPLACEMENT LEFT. GALLBLADDER. APPENDECTOMY. CARDIAC ABLATION. T & A. SHOULDER - RCT. CARPAL TUNNEL - TESFAYE. 3 C SECTIONS. GASTRIC STAPLING - 1982. bilateral hips revision. RIGHT EYE CATARACT-08/2016 Hx Anesthesia Reactions: No - Immunization History Date of Influenza Vaccine: 05/06 Infectious Disease History: No Infectious Disease History: Denies: Traveled Outside the [place] in Last 30 Days - Family History Known Family History: Positive: Cardiac Disease - Social History Lives: With Family Alcohol Use: None Substance Use Type: Reports: None Smoking Status (MU): Never Smoked Tobacco Have You Smoked in the Last Year: No Review of Systems Positive: Nausea. Negative: Vomiting Positive: flank pain - right All Other Systems Reviewed And Are Negative: Yes Physical Exam - Summary Physical Exam Summary: VITAL SIGNS: Reviewed. GENERAL: Patient is a well-developed and nourished female who is lying comfortable in the stretcher. Patient is not in any acute respiratory distress. HEAD AND FACE: No signs of trauma. No ecchymosis, hematomas or skull depressions. No sinus tenderness. EYES: PERRLA, EOMI x 2, No injected conjunctiva, no nystagmus. EARS: Hearing grossly intact. Ear canals and tympanic membranes are within normal limits. MOUTH: Oropharynx within normal limits. NECK: Supple, trachea is midline, no adenopathy, no JVD, no carotid bruit, no c- spine tenderness, neck with full ROM. CHEST: Symmetric, no tenderness at palpation LUNGS: Clear to auscultation bilaterally. No wheezing or crackles. CVS: Regular rate and rhythm, S1 and S2 present, no murmurs or gallops appreciated. ABDOMEN: Soft, non-tender. No signs of distention. No rebound no guarding, and no masses palpated. Bowel sounds are normal. BACK: Left CVA tenderness EXTREMITIES: FROM in all major joints, no edema, no cyanosis or clubbing. NEURO: Alert and oriented x 3. No acute neurological deficits. Speech is normal and follows commands. SKIN: Dry and warm Triage Information Reviewed: Yes Vital Signs On Initial Exam: Initial Vitals Temp Pulse Resp BP Pulse Ox 98.0 F 73 16 92/50 99 08/13/17 08:10 08/13/17 08:10 08/13/17 08:10 08/13/17 08:10 08/13/17 08:10 Vital Signs Reviewed: Yes Diagnostics - Vital Signs Vital Signs Temp Pulse Resp BP Pulse Ox 08/13/17 08:28 97.1 F 73 18 105/42 99 08/13/17 08:10 98.0 F 73 16 92/50 99 - Laboratory Lab Results: Lab Results 08/13/17 Range/Units 09:20 WBC 9.0 (3.5-10.8) 10^3/ul RBC 3.03 L (4.0-5.4) 10^6/ul Hgb 9.1 L (12.0-16.0) g/dl Hct 26 L (35-47) % MCV 86 (80-97) fL MCH 30 (27-31) pg MCHC 35 (31-36) g/dl RDW 16 H (10.5-15) % Plt Count 232 (150-450) 10^3/ul MPV 7 L (7.4-10.4) um3 Neut % (Auto) 82.4 (38-83) % Lymph % (Auto) 7.2 L (25-47) % Cotton % (Auto) 9.3 H (1-9) % Eos % (Auto) 0.6 (0-6) % Baso % (Auto) 0.5 (0-2) % Absolute Neuts (auto) 7.4 (1.5-7.7) 10^3/ul Absolute Lymphs (auto) 0.6 L (1.0-4.8) 10^3/ul Absolute Monos (auto) 0.8 (0-0.8) 10^3/ul Absolute Eos (auto) 0.1 (0-0.6) 10^3/ul Absolute Basos (auto) 0 (0-0.2) 10^3/ul Absolute Nucleated RBC 0 10^3/ul Nucleated RBC % 0 Result Diagrams: 08/13/17 09:20 08/13/17 09:20 Lab Statement: Any lab studies that have been ordered have been reviewed, and results considered in the medical decision making process. - Radiology Abd XR Radiology Interpretation Completed By: Radiologist - Abd XR, per radiologist, reveals: 1. NONSPECIFIC BOWEL GAS PATTERN WITH GASEOUS DISTENTION OF THE SMALL BOWEL WITHOUT DILATATION. 2. THE RENAL CALCULI NOTED ON CT ARE NOT WELL VISUALIZED ON THE CURRENT EXAMINATION. Dr. Rudolph has reviewed this report. - CT Abd/Pel CT Interpretation Completed By: Radiologist - CT Abd, per radiologist, reveals: 1. SMALL RIGHT KIDNEY WITH CORTICAL SCARRING. THERE ARE SEVERAL NONOBSTRUCTING RIGHT RENAL CALCULI. IN ADDITION THERE IS MILD RIGHT HYDRONEPHROSIS. NO URETERAL CALCULI ARE SEEN ALTHOUGH THE DISTAL RIGHT URETER IS OBSCURED SECONDARY TO METALLIC ARTIFACT. 2. STATUS POST CHOLECYSTECTOMY, GASTRIC BYPASS SURGERY AND APPENDECTOMY. Dr. Rudolph has reviewed this report. - EKG 0836 Cardiac Rate: NL EKG Rhythm: Sinus Rhythm - 72 bpm EKG Interpretation: no st elevation, ST depressions in 2, 3, AVF, V4, V5, V6. EKG Comparison: No Significant Change - similar to previous EKG 06/06/17. 1403 Cardiac Rate: NL EKG Rhythm: Sinus Rhythm - 80 bpm EKG Interpretation: no ST elevation EKG Comparison: No Significant Change - compared to 08/13/17 - Additional Comments Diagnostic Additional Comments: Renal US, per radiologist, reveals no evidence of hydronephrosis of either kidney. Nonvisualization of the right ureteral jet. Dr. Rudolph has reviewed this report. Re-Evaluation - Re-Evaluation First Eval Re-Evaluation Time: 15:06 Comment: Pt is eating and drinking. Pain has subsided. Reviewed plan to D/C. GIGU Course/Dx - Course Assessment/Plan: This patient is a 67 year old F presenting to [facility] accompanied by daughter with a chief complaint of constant aching R-flank pain since this morning. The patient rates the pain 6/10 in severity. Symptoms aggravated by nothing and alleviated by positioning. Patient reports nausea, but denies vomiting. Pt notes prior hospitalization for urine sepsis (May 2017). Pt states she saw urologist Dr. Justice for follow up yesterday, but was unable to give urine sample. Pt denies pain yesterday. PMHx includes renal calculi. Pending labs, EKG, CT Abd/Pel, Renal US, and Abd XR. An EKG reveals NSR , 72 bpm, no st elevation, ST depressions in 2, 3, AVF, V4, V5, V6, similar to previous EKG 06/06/17. CT Abd, per radiologist, reveals: 1. SMALL RIGHT KIDNEY WITH CORTICAL SCARRING. THERE ARE SEVERAL NONOBSTRUCTING RIGHT RENAL. CALCULI. IN ADDITION THERE IS MILD RIGHT HYDRONEPHROSIS. NO URETERAL CALCULI ARE SEEN ALTHOUGH THE DISTAL RIGHT URETER IS OBSCURED SECONDARY TO METALLIC ARTIFACT. 2. STATUS POST CHOLECYSTECTOMY, GASTRIC BYPASS SURGERY AND APPENDECTOMY. Dr. Rudolph has reviewed this report. A second EKG reveals NSR, 80 bpm, no ST elevation, similar to previous EKG from 08/13/17. Renal US, per radiologist, reveals no evidence of hydronephrosis of either kidney. Nonvisualization of the right ureteral jet. Abd XR, per radiologist, reveals: 1. NONSPECIFIC BOWEL GAS PATTERN WITH GASEOUS DISTENTION OF THE SMALL BOWEL WITHOUT DILATATION. 2. THE RENAL CALCULI NOTED ON CT ARE NOT WELL VISUALIZED ON THE CURRENT EXAMINATION. Dr. Rudolph has reviewed these reports. In the ED course, the patient was given IV fluids, Morphine, Percocet, and Klor Con. [1440] Dr. Justice (urology) reviewed labs, CT, and imaging, and recommends for pt to be given 1 dose of Rocehpin and to D/C pt with cefuroxime. Pt had an episode of low BP for which the pt was given IV fluids. I believe BP was secondary to the administration of Morphine. Right now the BP is 108/68 and the pt is eating and drinking. She has no N/V or pain. Pt will be D/C with Dx of UTI, Flank Pain, and Renal stones. The pt is hemodynamically stable, alert and oriented x3. - Diagnoses Differential Diagnoses - Female: Renal Calculi, Renal Colic, Urinary Tract Infection, Ureteral Calculi Provider Diagnoses: UTI (urinary tract infection), Flank pain, Renal stone - Physician Notifications Discussed Care Of Patient With: Cecilio Justice - Urology Time Discussed With Above Provider: 14:40 Instructed by Provider To: Other - Reviewed labs, CT, and imaging, and recommends for pt to be given 1 dose of Rocehpin and d/c pt with cefuroxime. Discharge - Discharge Plan Condition: Stable Disposition: HOME Prescriptions: Cefuroxime Axetil [Ceftin 250 MG] 500 mg PO BID #20 tab HYDROcodone/ACETAMIN 5-325 MG* [Kemah 5-325 TAB*] 1 tab PO Q6H PRN #12 tab MDD 4 PRN Reason: Pain Patient Education Materials: Kidney Stones (ED), Urinary Tract Infection in Women (ED), Flank Pain (ED) Referrals: Janes Toledo MD [Primary Care Provider] - 3 Days Cecilio Justice MD [Medical Doctor] - 3 Days Additional Instructions: RETURN TO THE EMERGENCY DEPARTMENT FOR CHANGING OR WORSENING SYMPTOMS. The documentation as recorded by the Thuy soto Nilda accurately reflects the service I personally performed and the decisions made by , Otto Rudolph MD.
--- NOTE | 2017-08-15 13:18 | ED ---
Progress - Progress Note Progress Note: Patient's preliminary urine culture report reveals greater than 100,000 Escherichia coli. Patient was started on Ceftin. Pending sensitivities. No further treatment this time. Re-Evaluation - Re-Evaluation First Eval Re-Evaluation Time: 15:06 Comment: Pt is eating and drinking. Pain has subsided. Reviewed plan to D/C. Course/Dx - Diagnoses Provider Diagnoses: UTI (urinary tract infection), Flank pain, Renal stone - Provider Notifications Time Discussed With Above Provider: 14:40 Instructed by Provider To: Other - Reviewed labs, CT, and imaging, and recommends for pt to be given 1 dose of Rocehpin and d/c pt with cefuroxime.
== END 2017-08-13 16:31 | disposition home or self-care (01) ==
LOC: ED 08:06
DX: N39.0 Urinary tract infection, site not specified (principal); N20.0 Calculus of kidney; Z88.8 Allergy status to other drugs, medicaments and biological substances
CPT/HCPCS: 36415; 74018; 74176; 76775; 80053; 81003; 81015; 83690; 83735; 85025; 86140; 87040; 87077; 87086; 87150; 87186; 87205; 93005; 96361; 96365; 96375; 99284; A9270-GY; J0696; J2270

== ENCOUNTER 2017-08-14 11:46 | Inpatient (IN) | payer MEDICARE, OTHER ==
[2017-08-14 13:28] LABS: ABS Basophils 0 10^3/ul (0-0.2); ABS Eosinophils 0 10^3/ul (0-0.6); ABS Lymphocytes 0.3 10^3/ul (1.0-4.8); ABS Monocytes 0.5 10^3/ul (0-0.8); ABS Neutrophils 4.8 10^3/ul (1.5-7.7); ABS Nucleated RBC 0 10^3/ul; Eosinophil % 0.5 % (0-6); Hematocrit 34 % (35-47); Hemoglobin 11.2 g/dl (12.0-16.0); Lymphocyte % 4.7 % (25-47); Mean Corpuscular HGB Conc 33 g/dl (31-36); Mean Corpuscular Hemoglobin 28 pg (27-31); Mean Corpuscular Volume 86 fL (80-97); Mean Platelet Volume 7 um3 (7.4-10.4); Nucleated Red Blood Cells % 0; Platelet Count 198 10^3/ul (150-450); Red Blood Count 3.99 10^6/ul (4.0-5.4); Red Cell Distribution Width 16 % (10.5-15); White Blood Count 5.7 10^3/ul (3.5-10.8)
[2017-08-14 13:41] LABS: EGFR Non-African American 46.4 (>60)
[2017-08-14] MEDS ORDERED: HYDROmorphone INJ* 2 MG/ML CARPUJECT SYRINGE IV SLOW PU ONE (13:56)
[2017-08-14] MEDS ORDERED: NS 0.9% 1000 ML* 1,000 ML IV ONE ×3 (13:57→15:36)
[2017-08-14 14:44] LABS: Urine Appearance Cloudy; Urine Blood 1+ (Negative); Urine Color Yellow; Urine Ketones Negative (Negative); Urine Protein Negative (Negative); Urine Specific Gravity 1.008 (1.010-1.030); Urine Urobilinogen Negative (Negative)
[2017-08-14] MEDS ORDERED: cefTRIAXone(*) 1 GM in NS 0.9% 50 ML* 50 ML IVPB ONE (14:52)
[2017-08-14] MEDS ORDERED: Ondansetron INJ* 2 MG/ML VIAL IV PRN (15:25)
[2017-08-14] MEDS ORDERED: NS 0.9% 1000 ML* 1,000 ML IV SCH (15:30)
--- NOTE | 2017-08-14 16:26 | RAD ---
Indication: Pyelonephritis. Real-time sonography of the kidneys was performed. The right kidney measures 8.7 x 4.1 x 4.0 cm. No hydronephrosis is noted. The study is limited due to patient's body habitus. The left kidney measures 10.4 x 5.4 x 5.5 cm with no hydronephrosis. Bilateral ureteral jets are identified. There appears to be bladder diverticula noted. IMPRESSION: No hydronephrosis of either kidney although the right kidney is limited in evaluation due to body habitus. Bilateral ureteral jets are identified.
[2017-08-14] MEDS: HYDROcodone/ACETAMIN 5-325 MG* 1 TAB PO PRN (17:21)
[2017-08-14] MEDS: KCL 10 MEQ/50 ML IVPREMIX* 10 MEQ/50 ML BAG IV SCH ×3 (18:02→23:42)
[2017-08-14] MEDS: Morphine INJ* 4 MG/ML 1 ML CARPUJECT IV PRN ×2 (18:11→23:42)
[2017-08-14] MEDS: Metoprolol Tartrate TAB* 50 mg PO SCH (20:46)
[2017-08-14] MEDS: Apixaban* 5 MG TAB PO SCH (20:46)
[2017-08-14] MEDS: Cyclobenzaprine TAB* 10 MG PO PRN (20:46)
[2017-08-14] MEDS: Methenamine Hippurate TAB* 1 GM TAB PO SCH (20:46)
[2017-08-14] MEDS: Famotidine TAB* 20 MG PO SCH (20:46)
[2017-08-14] MEDS: Atorvastatin* 20 MG TAB PO SCH (20:46)
[2017-08-14] MEDS ORDERED: PROPAFENONE 225 MG PO SCH (21:00)
[2017-08-14] MEDS ORDERED: KCL 10 MEQ/50 ML IVPREMIX* 10 MEQ/50 ML BAG ONE ×2 (21:32→23:38)
--- NOTE | 2017-08-14 21:50 | ED ---
Augustina Powell Thomas, scribed for Awilda Mcmanus MD on 08/14/17 at 1417 . Abdominal Pain/Female - HPI Summary HPI Summary: The patient is a 67 year old female referred to the emergency room by her urologist complaining of bilateral flank pain (R>L). The patient was evaluated at [facility] yesterday, and a CT was performed and the patient was discharged with antibiotics and pain medication. The CT showed stones in the kidney but none in the ureter. The patient reports drinking little over the last two days. She additionally complains of back pain and some edema in her legs. The patient denies fever, eye erythema, ear ache, chest pain, shortness of breath, dysuria, hematuria, rashes, bruises, headache, anxiety, and depression. - History of Current Complaint Chief Complaint: EDFlankPain Stated Complaint: FLANK PAIN Time Seen by Provider: 08/14/17 12:39 Hx Obtained From: Patient Onset/Duration: Still Present Timing: Constant Severity Currently: Severe Pain Intensity: 9 Pain Scale Used: 0-10 Numeric Location: Flank - bilateral R>L Alleviating Factor(s): Nothing Associated Signs and Symptoms: Positive: Other: - Flank pain, back pain, edema; NEGATIVE: fever, eye erythema, ear ache, chest pain, shortness of breath, dysuria, hematuria, rashes, bruises, headache, anxiety, and depression. 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 Denies: Hx Pacemaker/ICD Respiratory History: Reports: Hx Chronic Obstructive Pulmonary Disease (COPD), Hx Pneumonia, Hx Sleep Apnea, Other Respiratory Problems/Disorders - USES O2 AT NIGHT 2L Denies: Hx Asthma GI History: Reports: Hx Ulcer - bleeding ulcer 2008 History: Reports: Hx Kidney Infection - HX OF, Hx Kidney Stones - HX OF, Other Problems/Disorders - UTIs- LAST 04/2017 Denies: Hx Renal Disease Musculoskeletal History: Reports: Hx Arthritis - "THROUGHOUT BODY", Hx Rheumatoid Arthritis, Hx Back Problems, Hx Bursitis, Other Musculoskeletal History - osteoporosis//SPINAL STENOSIS- STATES 2 SURGERIES FOR Sensory History: Reports: Hx Cataracts - LEFT EYE, Hx Contacts or Glasses - reading Denies: Hx Hearing Aid Opthamlomology History: Reports: Hx Cataracts - LEFT EYE, Hx Contacts or Glasses - reading Neurological History: Reports: Hx Dementia, Hx Headaches Psychiatric History: Denies: Hx Panic Disorder - Cancer History Cancer Type, 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 HIP REPLACEMENT BILATERAL. KNEE REPLACEMENT LEFT. GALLBLADDER. APPENDECTOMY. CARDIAC ABLATION. T & A. SHOULDER - RCT. CARPAL TUNNEL - TESFAYE. 3 C SECTIONS. GASTRIC STAPLING - 1982. bilateral hips revision. RIGHT EYE CATARACT-08/2016 Hx Anesthesia Reactions: No - Immunization History Date of Influenza Vaccine: 05/06 Infectious Disease History: No Infectious Disease History: Denies: Traveled Outside the [place] in Last 30 Days - Family History Known Family History: Positive: Cardiac Disease - Social History Alcohol Use: None Substance Use Type: Reports: None Smoking Status (MU): Never Smoked Tobacco Have You Smoked in the Last Year: No Review of Systems Negative: Fever Negative: Erythema Negative: Ear Ache Negative: Chest Pain Negative: Shortness Of Breath Positive: Other - Flank pain Positive: flank pain - bilateral. Negative: dysuria, hematuria Positive: Edema, Other - Back pain Negative: Rash, Bruising Negative: Headache Negative: Anxious, Depressed All Other Systems Reviewed And Are Negative: No Physical Exam Vital Signs On Initial Exam: Initial Vitals Temp Pulse Resp BP Pulse Ox 99.4 F 115 20 86/52 93 08/14/17 12:16 08/14/17 12:16 08/14/17 12:16 08/14/17 12:16 08/14/17 12:16 Diagnostics - Vital Signs Vital Signs Temp Pulse Resp BP Pulse Ox 08/14/17 13:30 102 13 122/52 94 08/14/17 13:00 101 11 90 08/14/17 12:44 111 116/61 94 08/14/17 12:16 99.4 F 115 20 86/52 93 - Laboratory Lab Results: Lab Results 08/14/17 08/14/17 08/14/17 Range/Units 13:20 13:20 13:20 WBC 5.7 (3.5-10.8) 10^3/ul RBC 3.99 L (4.0-5.4) 10^6/ul Hgb 11.2 L (12.0-16.0) g/dl Hct 34 L (35-47) % MCV 86 (80-97) fL MCH 28 (27-31) pg MCHC 33 (31-36) g/dl RDW 16 H (10.5-15) % Plt Count 198 (150-450) 10^3/ul MPV 7 L (7.4-10.4) um3 Neut % (Auto) 84.8 H (38-83) % Lymph % (Auto) 4.7 L (25-47) % Cotton % (Auto) 9.3 H (1-9) % Eos % (Auto) 0.5 (0-6) % Baso % (Auto) 0.7 (0-2) % Absolute Neuts (auto) 4.8 (1.5-7.7) 10^3/ul Absolute Lymphs (auto) 0.3 L (1.0-4.8) 10^3/ul Absolute Monos (auto) 0.5 (0-0.8) 10^3/ul Absolute Eos (auto) 0 (0-0.6) 10^3/ul Absolute Basos (auto) 0 (0-0.2) 10^3/ul Absolute Nucleated RBC 0 10^3/ul Nucleated RBC % 0 Sodium 129 L (133-145) mmol/L Potassium 3.4 L (3.5-5.0) mmol/L Chloride 94 L (101-111) mmol/L Carbon Dioxide 27 (22-32) mmol/L Anion Gap 8 (2-11) mmol/L BUN 25 H (6-24) mg/dL Creatinine 1.17 H (0.51-0.95) mg/dL Est GFR ( Amer) 59.7 (>60) Est GFR (Non-Af Amer) 46.4 (>60) BUN/Creatinine Ratio 21.4 H (8-20) Glucose 120 H (70-100) mg/dL Lactic Acid 1.6 (0.5-2.0) mmol/L Calcium 8.4 L (8.6-10.3) mg/dL Total Bilirubin 0.50 (0.2-1.0) mg/dL AST 8 L (13-39) U/L ALT 6 L (7-52) U/L Alkaline Phosphatase 61 (34-104) U/L Total Protein 6.0 L (6.4-8.9) g/dL Albumin 3.1 L (3.2-5.2) g/dL Globulin 2.9 (2-4) g/dL Albumin/Globulin Ratio 1.1 (1-3) Result Diagrams: 08/14/17 13:20 08/14/17 13:20 Lab Statement: Any lab studies that have been ordered have been reviewed, and results considered in the medical decision making process. Re-Evaluation - Re-Evaluation First Eval Re-Evaluation Time: 15:00 Change: Improved Comment: She is feeling better. Abdominal Pain Fem Course/Dx - Course Course Of Treatment: The patient is a 67 year old female referred to the emergency room by her urologist complaining of bilateral flank pain (R>L). The patient was given Dilaudid, IV fluids, and Rocephin. I ordered a renal ultrasound. The patient will be admitted by the hospitalists. - Diagnoses Provider Diagnoses: Pyelonephritis - Provider Notifications Discussed Care Of Patient With: Paige Gonzalez Time Discussed With Above Provider: 15:07 Instructed by Provider To: Other - I also consulted at 15:[address] Justice, urology, who requests a repeat renal ultrasound. Discharge - Discharge Plan Condition: Stable Disposition: HOME The documentation as recorded by the Augustina soto Thomas accurately reflects the service I personally performed and the decisions made by me, Awilda Mcmanus MD.
--- NOTE | 2017-08-14 21:51 | HP ---
CC: Dr. Toledo; Dr. Justice * HISTORY AND PHYSICAL: DATE OF ADMISSION: 08/14/17 PRIMARY CARE PROVIDER: Dr. Toledo. ATTENDING PHYSICIAN WHILE IN THE HOSPITAL: Paige Gonzalez MD * (report dictated by Thong Bose NP) CHIEF COMPLAINT: 1. Weakness. 2. Confusion. HISTORY OF PRESENT ILLNESS: Mrs. Cotto is a 67-year-old female patient, she has a well-known history of nephrolithiasis, she has a history of CAD, [place], hypertension, rheumatoid arthritis, also carries a history of COPD, AFib, status post ablation on multiple rate controlling agents and Eliquis, history of skin cancer, dementia and staghorn renal calculi. She comes into our ER today stating that the family has noticed that at least over the last week that she has not been acting herself, which is typical of her UTI. She becomes confused, she becomes week, what she is both experiencing. She has also been having intermittent right- sided flank pain over the last week as well that was worse over the last couple of days. She has had some chills at times, but has not had any documented fevers and she has had couple episodes of vomiting, but no diarrhea. She denied any urinary symptoms such as dysuria, frequency. There has been no hesitancy. Her family was concerned that something was going on. She came into the ED yesterday, was evaluated. They were concerned that she had a UTI, she was sent home on antibiotics, but she came into the ED today , though she was still having a fair amount of pain. It was noted also that her blood pressure was low in the 90 systolic. She is little tachycardic. There was concern that she could have a developing hydronephrosis or obstruction. She had a low-grade fever of 99.4 and we were asked to evaluate for admission. She denies having any chest pain. She denies any shortness of breath. There has been no URI symptoms, but because of the concern for UTI, possible pyelonephritis, we were asked to evaluate for admission. PAST MEDICAL HISTORY: Significant for: 1. CAD. 2. KY. 3. Hypertension. 4. Rheumatoid arthritis. 5. COPD. 6. History of skin cancer. 7. AFib. 8. Dementia. 9. History of staghorn renal calculi. PAST SURGICAL HISTORY: 1. The patient has had a bilateral total hip arthroplasty. 2. She has had a left total knee replacement. 3. She has had a cholecystectomy. 4. She had an appendectomy. 5. She has had tonsillectomy. 6. She has had AFib ablation. 7. She has had shoulder arthroscopies. 8. She has had x3. 9. She has had gastric stapling. HOME MEDICATIONS: Include: 1. Allopurinol 100 mg p.o. daily. 2. Fosamax 70 mg p.o. weekly. 3. Ventolin 2 puffs inhaler every 4 hours as needed. 4. Lasix 40 mg daily. 5. Breo 1 puff inhaled daily. 6. Aricept 10 mg daily. 7. Diltiazem CD 180 mg daily. 8. Flexeril 10 mg p.o. b.i.d. 9. B12 1000 mcg p.o. daily. 10. Ceftin 500 mg p.o. b.i.d. 11. Lipitor 20 mg p.o. daily at bedtime. 12. Eliquis 5 mg p.o. b.i.d. 13. Zantac 150 mg p.o. b.i.d. 14. Rythmol 225 mg p.o. b.i.d. 15. Potassium 10 mEq p.o. daily. 16. Metolazone 2.5 mg Tuesdays and . 17. Hiprex 1 g p.o. b.i.d. 18. Magnesium 800 mg p.o. daily. 19. Lisinopril 2.5 mg daily. 20. [place] 1 tablet p.o. every 6 hours as needed. ALLERGIES TO MEDICATIONS: Include PROGESTERONE and OFLOXACIN. FAMILY HISTORY: Both her parents had [place]. SOCIAL HISTORY: She does not smoke, she does not drink. Surrogate decision maker is her . REVIEW OF SYSTEMS: There is no documented fever. She admits to having chills. Denies having any significant weight change. There was no double vision. She denies having any ear discharge. There was no rhinorrhea. No sore throat. No thyroid enlargement. She denies having any chest pain. There was no orthopnea. No nocturnal dyspnea. There was flank pain on the right side and there was nausea and vomiting. No dysuria, no frequency. There was no seizure , no loss of consciousness. No pruritus and no skin ulcerations. Review of 14 systems completed, all others negative. PHYSICAL EXAMINATION GENERAL: At this time, Mrs. Cotto is a 67-year-old female patient with multiple medical problems, coming into the ED. She appears to be well-nourished , well- developed. She is sitting in the ER stretcher. VITAL SIGNS: Blood pressure 102/33 with a pulse of 100, respirations 14, O2 saturations 97% on 2 L, temperature 99.4. HEENT: Head: Atraumatic. Eyes: Sclerae anicteric. Not pale. Throat: Oral mucosa appears to be dry. No oropharyngeal erythema. NECK: Supple. LUNGS: Clear to auscultation bilaterally. No wheezes, rales, or rhonchi. HEART: Sounds S1, S2. Regular rate and rhythm. She is tachycardic. No murmurs, rubs, or gallops. ABDOMEN: Soft, it was flat. There was CVA tenderness noted on the right side. EXTREMITIES: Pulses were 2+ throughout, but she is moving all 4 extremities with 5/5 strength. NEUROLOGIC: The patient is awake, alert, oriented x3. Tongue midline. Stencil Cutter Machine were equal. No gross focal deficits. SKIN: Intact. DIAGNOSTIC STUDIES/LAB DATA: WBC 5.7, RBC of 3.99, hemoglobin 11.2, hematocrit 34, platelet count of 198. The sodium was 129, potassium was 3.4, chloride of 94, bicarb of 25, creatinine of 1.17. Glucose 120, lactate 1.6, calcium 8.4, total bili 0.5, AST 8, ALT 6, alk phos 61, albumin of 3.1. Urine showed a low specific gravity, 1+ blood, 3+ leukocyte esterase, 2+ wbc, 1+ bacteria. Microbiology from yesterday is growing E. coli. She did have an abdominal and pelvis CT just done yesterday morning, impression : Small right kidney with cortical scarring. There are several nonobstructing right renal calculi. In addition, there is mild right hydronephrosis. No ureteral calculi are seen, although the distal right ureter is obstructed secondary to metallic artifact, status post cholecystectomy, gastric bypass and appendectomy. There was a repeat abdominal x-ray obtained yesterday, impression: Nonspecific bowel gas pattern with gases essentially in the small bowel without dilatation. The renal calculi on the CT are now well visualized on current exam. She had a renal ultrasound obtained, impression: No evidence of hydronephrosis of either kidney, nonvisualization of the right ureteral jet. Old medical records were reviewed. She did have an EKG obtained yesterday shows a normal sinus rhythm, rate of 80, she had what appears to be intraventricular conduction delay. Review to the previous EKGs appears to be similar. Old medical records were reviewed. ASSESSMENT AND PLAN: Mrs. Cotto is a 67-year-old female patient with multiple medical problems, coming into the ER today with complaints of right flank pain, weakness, concern for urinary tract infection and possible hydronephrosis. She will be admitted under observatory status for: 1. Right flank pain. She is pretty tender on exam, costovertebral angle tenderness. She may have pyelonephritis, early, so I am going to go ahead and put her on Rocephin. We will get blood cultures. Her lactate was stable. Blood pressure is little soft, but her H and H is concentrated, so I think she is dry. She was on 2 diuretics. I am going to hold her blood pressure meds with the exception of her Rythmol and her Lopressor. I will switch over to immediate release metoprolol for the time being. We will panculture her. We will hydrate her. We are going to go ahead and get another renal ultrasound. If there is worsening hydro, Dr. Justice will be in to evaluate the patient for possible ureteral stenting and we will continue to follow this closely and hydrate aggressively. 2. Coronary artery disease and history of myocardial infarction. We will continue her meds as prescribed, just the beta-huseyin and the statin for now. 3. Hypertension. Again, she is a little soft here, blood pressures are in the 100s systolic. We will hold her meds in the setting of acute illness with the exception of the beta-huseyin, which I have changed to the immediate release formulation. 4. Rheumatoid arthritis. Continue with her current medical regimen. 5. Chronic obstructive pulmonary disease. P.r.n. nebs have been ordered and her Breo. 6. Atrial fibrillation. She appears to be in a sinus tachycardia. We will get her EKG at this point and we will monitor. Hold any Eliquis in case the procedure is needed and we will continue her Rythmol and we will continue her metoprolol immediate formulation. 7. Dementia. Continue with supportive care. 8. History of renal calculi. Again, we are repeating ultrasound today. We will get Urology involved as needed. 9. DVT prophylaxis: She is on Eliquis, but I am going to just put her on SCDs for the time being. I will restart the Eliquis once I know that there is no need for possible surgical intervention based on the ultrasound. 10. Fluids, electrolytes, and nutrition: She is n.p.o. should she have worsening hydro. After this if the ultrasound does not show this, I will put her on a heart healthy diet. 11. Code status: Full code. TIME SPENT: Time spent on the admission was 60 minutes, greater than half of the time was spent [id number] with the patient, obtaining history and physical , the other half of the time was spent going over the plan of care with the patient and implementing the plan of care. I did discuss plan of care with my attending, Dr. Gonzalez, she is in agreement. THONG BOSE NP [phone]/[facility] #: [id number] YEHUDA
[2017-08-14] MEDS ORDERED: Heparin VIAL(*) 5000 UNITS/ML VIAL (FIVE THOUSAND) SUBCUT SCH (22:00)
[2017-08-14] MEDS: PROPAFENONE 225 MG PO SCH (23:46)
[2017-08-15] MEDS: Acetaminophen TAB* 325 MG PO PRN ×2 (02:04→19:57)
[2017-08-15 05:47] LABS: ABS Basophils 0 10^3/ul (0-0.2); ABS Eosinophils 0.1 10^3/ul (0-0.6); ABS Lymphocytes 0.6 10^3/ul (1.0-4.8); ABS Monocytes 0.7 10^3/ul (0-0.8); ABS Neutrophils 4.9 10^3/ul (1.5-7.7); ABS Nucleated RBC 0 10^3/ul; Eosinophil % 1.1 % (0-6); Hematocrit 22 % (35-47); Hemoglobin 7.2 g/dl (12.0-16.0); Lymphocyte % 9.1 % (25-47); Mean Corpuscular HGB Conc 33 g/dl (31-36); Mean Corpuscular Hemoglobin 28 pg (27-31); Mean Corpuscular Volume 86 fL (80-97); Mean Platelet Volume 7 um3 (7.4-10.4); Nucleated Red Blood Cells % 0; Platelet Count 194 10^3/ul (150-450); Red Blood Count 2.56 10^6/ul (4.0-5.4); Red Cell Distribution Width 15 % (10.5-15); White Blood Count 6.3 10^3/ul (3.5-10.8)
[2017-08-15 06:05] LABS: INR 1.67 (0.77-1.02)
[2017-08-15] MEDS ORDERED: Fluticasone/Vilanterol MDI(NF) 100/25 MDI INH SCH (09:00)
[2017-08-15] MEDS ORDERED: Pneumococcal *Vac Polyvalent 0.5 ML VIAL IM ONE (09:00)
[2017-08-15] MEDS: Metoprolol Tartrate TAB* 50 mg PO SCH ×2 (09:08→19:58)
[2017-08-15] MEDS: Apixaban* 5 MG TAB PO SCH ×2 (09:08→19:58)
[2017-08-15] MEDS: Methenamine Hippurate TAB* 1 GM TAB PO SCH ×2 (09:09→19:57)
[2017-08-15] MEDS: Donepezil TAB* 5 MG PO SCH (09:09)
[2017-08-15] MEDS: PROPAFENONE 225 MG PO SCH ×2 (09:09→22:18)
[2017-08-15] MEDS: HYDROcodone/ACETAMIN 5-325 MG* 1 TAB PO PRN ×2 (09:09→19:57)
[2017-08-15 12:22] LABS: Hematocrit 22 % (35-47); Hemoglobin 7.3 g/dl (12.0-16.0)
[2017-08-15] MEDS: Morphine INJ* 4 MG/ML 1 ML CARPUJECT IV PRN (14:54)
[2017-08-15] MEDS: cefTRIAXone(*) 1 GM in NS 0.9% 50 ML* 50 ML IVPB SCH (15:01)
--- NOTE | 2017-08-15 17:00 | PN ---
Subjective Date of Service: 08/15/17 Interval History: Patient has continued pain in flanks. Patient is urinating frequently. Patient denies dysuria, F/C, hematuria, or change in urine color. Patient states that she was feeling very weak and confused at home and does not feel like she could manage at home with just the help of her . Patient denies CP, SOB, diarrhea, Abdominal pain, N/V or other pain. Family History: Unchanged from Admission Social History: Unchanged from Admission Past Medical History: Unchanged from Admission Objective Active Medications: Acetaminophen (Tylenol Tab*) 650 mg PO Q4H PRN PRN Reason: FEVER/PAIN Last Admin: 08/15/17 02:04 Dose: 650 mg Hydrocodone Bitart/Acetaminophen ([place] 5-325 Tab*) 1 tab PO Q6H PRN PRN Reason: PAIN Last Admin: 08/15/17 09:09 Dose: 1 tab Albuterol (Ventolin Hfa Inhaler*) 2 puff INH Q4H PRN PRN Reason: SOB/WHEEZING Apixaban (Eliquis*) 5 mg PO BID [facility] Last Admin: 08/15/17 09:08 Dose: 5 mg Atorvastatin Calcium (Lipitor*) 20 mg PO BEDTIME [facility] Last Admin: 08/14/17 20:46 Dose: 20 mg Cyclobenzaprine HCl (Flexeril Tab*) 10 mg PO BID PRN PRN Reason: SPASMS Last Admin: 08/14/17 20:46 Dose: 10 mg Donepezil HCl (Aricept Tab*) 10 mg PO DAILY [facility] Last Admin: 08/15/17 09:09 Dose: 10 mg Famotidine (Pepcid Tab*) 20 mg PO BEDTIME [facility] PRN Reason: Protocol Last Admin: 08/14/17 20:46 Dose: 20 mg Ceftriaxone Sodium 1 gm/ (Sodium Chloride) 50 mls @ 200 mls/hr IVPB Q24H [facility] Last Admin: 08/15/17 15:01 Dose: 200 mls/hr Methenamine Hippurate (Hiprex Tab*) 1 gm PO BID [facility] Last Admin: 08/15/17 09:09 Dose: 1 gm Metoprolol Tartrate (Lopressor Tab*) 50 mg PO Q12HR [facility] Last Admin: 08/15/17 09:08 Dose: 50 mg Mometasone Furoate/Formoterol Fumar (Dulera 200/5 Mdi*) 2 puff INH BID [facility] Morphine Sulfate (Morphine Inj (Syringe)*) 4 mg IV Q4H PRN PRN Reason: PAIN Last Admin: 08/15/17 14:54 Dose: 4 mg Ondansetron HCl (Zofran Inj*) 4 mg IV Q6H PRN PRN Reason: NAUSEA Propafenone HCl (Rythmol Sr (Nf)) 225 mg PO BID [facility] Last Admin: 08/15/17 09:09 Dose: 225 mg Vital Signs - 8 hr 08/15/17 08/15/17 13:15 14:54 Pulse Rate 78 Respiratory 16 Rate Blood Pressure 90/50 (mmHg) Oxygen Devices in Use Now: None Appearance: Patient is a 67yo female who appears stated age and is sitting in the bed in [facility]. Eyes: No Scleral Icterus, PERRLA Ears/Nose/Mouth/Throat: NL Teeth, Lips, Gums, Clear Oropharnyx, Mucous Membranes Moist Neck: NL Appearance and Movements; NL JVP, Trachea Midline Respiratory: Symmetrical Chest Expansion and Respiratory Effort, Clear to Auscultation Cardiovascular: NL Sounds; No Murmurs; No JVD, RRR, No Edema Abdominal: NL Sounds; No Tenderness; No Distention, No Hepatosplenomegaly, - - No suprapubic tenderness. Positive B/L CVA tenderness. Lymphatic: No Cervical Adenopathy Extremities: No Edema, No Clubbing, Cyanosis Skin: No Rash or Ulcers, No Nodules or Sclerosis Neurological: Alert and Oriented x 3, NL Sensation, NL Muscle Strength and Tone Result Diagrams: 08/15/17 12:04 08/15/17 05:18 Additional Lab and Data: Lab Results Assess/Plan/Problems-Billing Assessment: Patient is a 67yo female with a PMH significant for recurrent UTI, CAD, [place], HTN , RA and COPD who presents with bilateral flank pain and UTI who has presumed pyelonephritis and is being treated with Rocephin. - Patient Problems (1) UTI (urinary tract infection) Current Visit: No Status: Acute Comment: Positive CVA tenderness and urinalysis. Not septic, likely has pyelonephritis. Continue Rocephin. Culture postive for E. Coli, sensitivites pending. Renal U/S negative for any hydronephrosis or stones. Blood cultures negative to date. Consider suppressive ABX at discharge. (2) Altered mental status Current Visit: No Status: Acute Code(s): R41.82 - ALTERED MENTAL STATUS, UNSPECIFIED SNOMED Code(s): 175276523 Comment: Improved, Likely due to delirium from UTI. (3) Atrial fibrillation Current Visit: No Status: Chronic Code(s): I48.91 - UNSPECIFIED ATRIAL FIBRILLATION SNOMED Code(s): 25437719 Comment: NSR at this time. Continue Toprol, Propafenone and Eliquis for anticoagulation. (4) COPD (chronic obstructive pulmonary disease) Current Visit: No Status: Chronic Code(s): J44.9 - CHRONIC OBSTRUCTIVE PULMONARY DISEASE, UNSPECIFIED SNOMED Code(s): 88644892 Comment: No signs of acute exacerbation at this time. Continue home inhalers. (5) HTN (hypertension) Current Visit: No Status: Chronic Code(s): I10 - ESSENTIAL (PRIMARY) HYPERTENSION SNOMED Code(s): 21881117 Comment: Hypotensive. Continue metoprolol to avoid rebound. Hold other antihypertensives and continue fluids. (6) DVT prophylaxis Current Visit: No Status: Acute Code(s): YON4847 - SNOMED Code(s): 153452148 Comment: Continue Eliquis. (7) Full code status Current Visit: No Status: Acute Code(s): Z78.9 - OTHER SPECIFIED HEALTH STATUS SNOMED Code(s): 622694160 Status and Disposition: Patient is admitted inpatient.
[2017-08-15] MEDS: NS 0.9% 1000 ML* 1,000 ML IV SCH (18:02)
[2017-08-15] MEDS: Atorvastatin* 20 MG TAB PO SCH (19:58)
[2017-08-15] MEDS: Cyclobenzaprine TAB* 10 MG PO PRN (19:58)
[2017-08-15] MEDS: Famotidine TAB* 20 MG PO SCH (19:58)
[2017-08-15] MEDS: Mometasone/Formoter 200/5 MDI INH SCH (20:03)
[2017-08-15] MEDS: CMCS Melatonin (NF) 3 MG TAB PO PRN (22:18)
[2017-08-16] MEDS: Acetaminophen TAB* 325 MG PO PRN (02:32)
[2017-08-16] MEDS: HYDROcodone/ACETAMIN 5-325 MG* 1 TAB PO PRN (02:32)
[2017-08-16] MEDS: NS 0.9% 1000 ML* 1,000 ML IV SCH (04:51)
[2017-08-16 06:17] LABS: ABS Basophils 0 10^3/ul (0-0.2); ABS Eosinophils 0.1 10^3/ul (0-0.6); ABS Lymphocytes 0.6 10^3/ul (1.0-4.8); ABS Monocytes 0.5 10^3/ul (0-0.8); ABS Neutrophils 4.5 10^3/ul (1.5-7.7); ABS Nucleated RBC 0 10^3/ul; Eosinophil % 1.2 % (0-6); Hematocrit 22 % (35-47); Hemoglobin 7.4 g/dl (12.0-16.0); Lymphocyte % 9.7 % (25-47); Mean Corpuscular HGB Conc 33 g/dl (31-36); Mean Corpuscular Hemoglobin 28 pg (27-31); Mean Corpuscular Volume 86 fL (80-97); Mean Platelet Volume 7 um3 (7.4-10.4); Nucleated Red Blood Cells % 0; Platelet Count 210 10^3/ul (150-450); Red Blood Count 2.59 10^6/ul (4.0-5.4); Red Cell Distribution Width 16 % (10.5-15); White Blood Count 5.7 10^3/ul (3.5-10.8)
[2017-08-16 06:37] LABS: EGFR Non-African American 77.6 (>60)
[2017-08-16] MEDS ORDERED: Magnesium Sulf 4 GM/100 ML IV* 4,000 MG/100 ML BAG IVPB ONE (07:30)
[2017-08-16] MEDS: Mometasone/Formoter 200/5 MDI INH SCH ×2 (08:12→19:54)
[2017-08-16] MEDS: HYDROmorphone INJ* 2 MG/ML CARPUJECT SYRINGE IV SLOW PU PRN ×3 (08:19→23:22)
[2017-08-16] MEDS: Apixaban* 5 MG TAB PO SCH ×2 (08:19→20:24)
[2017-08-16] MEDS: Metoprolol Tartrate TAB* 50 mg PO SCH ×2 (08:19→20:23)
[2017-08-16] MEDS: Donepezil TAB* 5 MG PO SCH (08:19)
[2017-08-16] MEDS: Methenamine Hippurate TAB* 1 GM TAB PO SCH ×2 (08:20→20:23)
[2017-08-16] MEDS: PROPAFENONE 225 MG PO SCH ×2 (08:20→20:23)
[2017-08-16] MEDS: Magnesium Oxide TAB* 400 MG PO SCH (11:22)
[2017-08-16] MEDS: Cyanocobalamin TAB* 500 MCG PO SCH (11:22)
--- NOTE | 2017-08-16 14:26 | PN ---
Subjective Date of Service: 08/16/17 Interval History: Patient complains of continued pain in back. Patient states that she does not have pain in her back chronically. Patient states this does not feel like when she previously had kidney stones. Patient denies hematuria. Patient states that her pain is under better control today, though it was reported at 10/10 earlier to the nursing staff. Patient denies F/C, N/V, Palpitations, CP, SOB, Diarrhea, Constipation, Or other pain. Patient still feels weak. Patient is A/Ox3. Family History: Unchanged from Admission Social History: Unchanged from Admission Past Medical History: Unchanged from Admission Objective Active Medications: Acetaminophen (Tylenol Tab*) 650 mg PO Q4H PRN PRN Reason: FEVER/PAIN Last Admin: 08/16/17 02:32 Dose: 325 mg Hydrocodone Bitart/Acetaminophen ([place] 5-325 Tab*) 1 tab PO Q6H PRN PRN Reason: PAIN Last Admin: 08/16/17 02:32 Dose: 1 tab Albuterol (Ventolin Hfa Inhaler*) 2 puff INH Q4H PRN PRN Reason: SOB/WHEEZING Apixaban (Eliquis*) 5 mg PO BID [facility] Last Admin: 08/16/17 08:19 Dose: 5 mg Atorvastatin Calcium (Lipitor*) 20 mg PO BEDTIME [facility] Last Admin: 08/15/17 19:58 Dose: 20 mg Cyanocobalamin (Vitamin B12 Tab*) 1,000 mcg PO DAILY [facility] Last Admin: 08/16/17 11:22 Dose: 1,000 mcg Cyclobenzaprine HCl (Flexeril Tab*) 10 mg PO BID PRN PRN Reason: SPASMS Last Admin: 08/15/17 19:58 Dose: 10 mg Donepezil HCl (Aricept Tab*) 10 mg PO DAILY [facility] Last Admin: 08/16/17 08:19 Dose: 10 mg Famotidine (Pepcid Tab*) 20 mg PO BEDTIME [facility] PRN Reason: Protocol Last Admin: 08/15/17 19:58 Dose: 20 mg Hydromorphone HCl (Dilaudid Inj*) 1 mg IV SLOW PU Q4H PRN PRN Reason: PAIN Last Admin: 08/16/17 14:12 Dose: 1 mg Ceftriaxone Sodium 1 gm/ (Sodium Chloride) 50 mls @ 200 mls/hr IVPB Q24H [facility] Last Admin: 08/15/17 15:01 Dose: 200 mls/hr Magnesium Oxide (Magox 400 Tab*) 800 mg PO DAILY [facility] Last Admin: 08/16/17 11:22 Dose: 800 mg Melatonin (Melatonin (Nf)) 3 mg PO BEDTIME PRN PRN Reason: SLEEP Last Admin: 08/15/17 22:18 Dose: 3 mg Methenamine Hippurate (Hiprex Tab*) 1 gm PO BID [facility] Last Admin: 08/16/17 08:20 Dose: 1 gm Metoprolol Tartrate (Lopressor Tab*) 50 mg PO Q12HR [facility] Last Admin: 08/16/17 08:19 Dose: 50 mg Mometasone Furoate/Formoterol Fumar (Dulera 200/5 Mdi*) 2 puff INH BID [facility] Last Admin: 08/16/17 08:12 Dose: 2 puff Ondansetron HCl (Zofran Inj*) 4 mg IV Q6H PRN PRN Reason: NAUSEA Propafenone HCl (Rythmol Sr (Nf)) 225 mg PO BID [facility] Last Admin: 08/16/17 08:20 Dose: 225 mg Vital Signs - 8 hr 08/16/17 08/16/17 08/16/17 07:24 07:51 08:19 Temperature 97.5 F Pulse Rate 92 93 Respiratory 18 16 20 Rate Blood Pressure 120/64 (mmHg) O2 Sat by Pulse 93 94 Oximetry 08/16/17 08/16/17 10:38 14:12 Temperature Pulse Rate Respiratory 18 16 Rate Blood Pressure (mmHg) O2 Sat by Pulse Oximetry Oxygen Devices in Use Now: None Appearance: Patient is a 67yo female who appears stated age and is sitting in the bed in [facility]. Eyes: No Scleral Icterus, PERRLA Ears/Nose/Mouth/Throat: NL Teeth, Lips, Gums, Clear Oropharnyx, Mucous Membranes Moist Neck: NL Appearance and Movements; NL JVP, Trachea Midline Respiratory: Symmetrical Chest Expansion and Respiratory Effort, Clear to Auscultation Cardiovascular: NL Sounds; No Murmurs; No JVD, RRR, No Edema Abdominal: No Hepatosplenomegaly, - - Normal sounds, no tenderness. Distended similar to previous exams. CVA tenderness. BS present and normoactive in all 4 quadrants. Lymphatic: No Cervical Adenopathy Extremities: No Clubbing, Cyanosis, - - 1+ pitting edema in RLE, 2+ pitting edema in LLE. Skin: No Rash or Ulcers Neurological: Alert and Oriented x 3, NL Sensation, NL Muscle Strength and Tone Result Diagrams: 08/16/17 05:44 08/16/17 05:44 Additional Lab and Data: Lab Results Assess/Plan/Problems-Billing Assessment: Patient is a 67yo female with a PMH significant for recurrent UTI, CAD, [place], HTN , RA and COPD who presents with bilateral flank pain and UTI who has presumed pyelonephritis and is being treated with Rocephin. - Patient Problems (1) UTI (urinary tract infection) Current Visit: No Status: Acute Comment: Positive CVA tenderness and urinalysis. Not septic, likely has pyelonephritis. Continue Rocephin. Culture postive for E. Coli, sensitive to cephalosporins. Renal U/S negative for any hydronephrosis or stones. Blood cultures postive from ER visit with pansensitive Streptococcus Gallolyticus Consider suppressive ABX at discharge. (2) Altered mental status Current Visit: No Status: Acute Code(s): R41.82 - ALTERED MENTAL STATUS, UNSPECIFIED SNOMED Code(s): 658838150 Comment: Improved, Likely due to delirium from UTI. Patient has underlying dementia possibly from B12 deficiency. DANIEL positive, concern for Lupus or Sjogrens. Continue workup outpatient. (3) Atrial fibrillation Current Visit: No Status: Chronic Code(s): I48.91 - UNSPECIFIED ATRIAL FIBRILLATION SNOMED Code(s): 06366891 Comment: NSR at this time. Continue Toprol, Propafenone and Eliquis for anticoagulation. (4) COPD (chronic obstructive pulmonary disease) Current Visit: No Status: Chronic Code(s): J44.9 - CHRONIC OBSTRUCTIVE PULMONARY DISEASE, UNSPECIFIED SNOMED Code(s): 44002006 Comment: No signs of acute exacerbation at this time. Continue home inhalers. (5) HTN (hypertension) Current Visit: No Status: Chronic Code(s): I10 - ESSENTIAL (PRIMARY) HYPERTENSION SNOMED Code(s): 80264027 Comment: Normotensive. Reintroduce antihypertensives as tolerated. Patient states she is usually hypotensive. Consider digoxin instead of dilitazem. Continue metoprolol to avoid rebound. Fluid discontinued due to edema. (6) DVT prophylaxis Current Visit: No Status: Acute Code(s): PBG7973 - SNOMED Code(s): 240575048 Comment: Continue Eliquis. (7) Full code status Current Visit: No Status: Acute Code(s): Z78.9 - OTHER SPECIFIED HEALTH STATUS SNOMED Code(s): 783166977 Status and Disposition: Patient is admitted inpatient.
[2017-08-16] MEDS: cefTRIAXone(*) 1 GM in NS 0.9% 50 ML* 50 ML IVPB SCH (16:11)
[2017-08-16] MEDS: Famotidine TAB* 20 MG PO SCH (20:24)
[2017-08-16] MEDS: Atorvastatin* 20 MG TAB PO SCH (20:24)
[2017-08-16] MEDS: CMCS Melatonin (NF) 3 MG TAB PO PRN (20:26)
[2017-08-16] MEDS: Albuterol HFA INHALER* 8 gm MDI INH PRN (23:39)
[2017-08-17] MEDS: HYDROcodone/ACETAMIN 5-325 MG* 1 TAB PO PRN (02:03)
[2017-08-17 04:30] LABS: ABS Basophils 0 10^3/ul (0-0.2); ABS Eosinophils 0.1 10^3/ul (0-0.6); ABS Lymphocytes 0.7 10^3/ul (1.0-4.8); ABS Monocytes 0.7 10^3/ul (0-0.8); ABS Neutrophils 5.9 10^3/ul (1.5-7.7); ABS Nucleated RBC 0 10^3/ul; Eosinophil % 1.4 % (0-6); Hematocrit 24 % (35-47); Lymphocyte % 9.7 % (25-47); Mean Corpuscular HGB Conc 33 g/dl (31-36); Mean Corpuscular Hemoglobin 28 pg (27-31); Mean Corpuscular Volume 86 fL (80-97); Mean Platelet Volume 7 um3 (7.4-10.4); Nucleated Red Blood Cells % 0; Platelet Count 270 10^3/ul (150-450); Red Blood Count 2.84 10^6/ul (4.0-5.4); Red Cell Distribution Width 16 % (10.5-15); White Blood Count 7.5 10^3/ul (3.5-10.8)
[2017-08-17] MEDS: HYDROmorphone INJ* 2 MG/ML CARPUJECT SYRINGE IV SLOW PU PRN ×2 (06:14→20:09)
[2017-08-17] MEDS: Albuterol HFA INHALER* 8 gm MDI INH PRN (06:15)
[2017-08-17] MEDS ORDERED: Albuterol 2.5 MG/3 ML NEB.SOL* (0.083%) ONE (06:28)
[2017-08-17] MEDS: Albuterol 2.5 MG/3 ML NEB.SOL* (0.083%) INH PRN ×2 (06:34→20:04)
[2017-08-17] MEDS: Cyanocobalamin TAB* 500 MCG PO SCH (07:54)
[2017-08-17] MEDS: Magnesium Oxide TAB* 400 MG PO SCH (07:54)
[2017-08-17] MEDS: Apixaban* 5 MG TAB PO SCH ×2 (07:54→20:44)
[2017-08-17] MEDS: Donepezil TAB* 5 MG PO SCH (07:54)
[2017-08-17] MEDS: Metoprolol Tartrate TAB* 50 mg PO SCH ×2 (07:54→21:12)
[2017-08-17] MEDS: Methenamine Hippurate TAB* 1 GM TAB PO SCH ×2 (07:54→20:43)
[2017-08-17] MEDS: PROPAFENONE 225 MG PO SCH ×2 (07:54→20:43)
[2017-08-17] MEDS ORDERED: Furosemide TAB* 20 MG PO ONE (08:15)
--- NOTE | 2017-08-17 08:49 | RAD ---
INDICATION: Short of breath COMPARISON: June 02, 2017 TECHNIQUE: An AP portable view obtained at 0840 hours is submitted. FINDINGS: Bones/Soft Tissues: There are no acute bony findings. Cardiomediastinal: The cardiomediastinal silhouette is normal. Lungs: The examination is mildly expiratory with vascular crowding. The interstitium is prominent. There may be mild interstitial congestion.. Pleura: Suspect small bilateral pleural effusions. Other: None IMPRESSION: SUSPECT MILD VASCULAR CONGESTION
[2017-08-17] MEDS: Mometasone/Formoter 200/5 MDI INH SCH ×2 (09:02→20:04)
[2017-08-17] MEDS: cefTRIAXone(*) 1 GM in NS 0.9% 50 ML* 50 ML IVPB SCH (15:43)
--- NOTE | 2017-08-17 16:51 | PN ---
Subjective Date of Service: 08/17/17 Interval History: Patient became SOB and needed additional oxygen. Improved with nebulizer. Only sightly increased SOB in morning. No CP. Patient has increased swelling in legs which is a chronic problem for her. Patient states that too much lasix has sent her into Afib previously. Patient states the pain in her back is only slightly improved. No Fevers, chills, N/V, abdominal pain, Slight diarrhea without blood. Family History: Unchanged from Admission Social History: Unchanged from Admission Past Medical History: Unchanged from Admission Objective Active Medications: Acetaminophen (Tylenol Tab*) 650 mg PO Q4H PRN PRN Reason: FEVER/PAIN Last Admin: 08/16/17 02:32 Dose: 325 mg Hydrocodone Bitart/Acetaminophen ([place] 5-325 Tab*) 1 tab PO Q6H PRN PRN Reason: PAIN Last Admin: 08/17/17 02:03 Dose: 1 tab Albuterol (Ventolin Hfa Inhaler*) 2 puff INH Q4H PRN PRN Reason: SOB/WHEEZING Last Admin: 08/17/17 06:15 Dose: 2 puff Albuterol (Ventolin 2.5 Mg/3 Ml Neb.Daniela*) 2.5 mg INH Q4H PRN PRN Reason: SOB/WHEEZING Last Admin: 08/17/17 06:34 Dose: 2.5 mg Allopurinol (Zyloprim Tab*) 100 mg PO QAM [facility] Apixaban (Eliquis*) 5 mg PO BID [facility] Last Admin: 08/17/17 07:54 Dose: 5 mg Atorvastatin Calcium (Lipitor*) 20 mg PO BEDTIME [facility] Last Admin: 08/16/17 20:24 Dose: 20 mg Cyanocobalamin (Vitamin B12 Tab*) 1,000 mcg PO DAILY [facility] Last Admin: 08/17/17 07:54 Dose: 1,000 mcg Cyclobenzaprine HCl (Flexeril Tab*) 10 mg PO BID PRN PRN Reason: SPASMS Last Admin: 08/15/17 19:58 Dose: 10 mg Donepezil HCl (Aricept Tab*) 10 mg PO DAILY [facility] Last Admin: 08/17/17 07:54 Dose: 10 mg Famotidine (Pepcid Tab*) 20 mg PO BEDTIME [facility] PRN Reason: Protocol Last Admin: 08/16/17 20:24 Dose: 20 mg Furosemide (Lasix Tab*) 40 mg PO QAM [facility] Hydromorphone HCl (Dilaudid Inj*) 1 mg IV SLOW PU Q4H PRN PRN Reason: PAIN Last Admin: 08/17/17 06:14 Dose: 1 mg Ceftriaxone Sodium 1 gm/ (Sodium Chloride) 50 mls @ 200 mls/hr IVPB Q24H [facility] Last Admin: 08/17/17 15:43 Dose: 200 mls/hr Lisinopril (Prinivil Tab*) 2.5 mg PO DAILY [facility] Magnesium Oxide (Magox 400 Tab*) 800 mg PO DAILY [facility] Last Admin: 08/17/17 07:54 Dose: 800 mg Melatonin (Melatonin (Nf)) 3 mg PO BEDTIME PRN PRN Reason: SLEEP Last Admin: 08/16/17 20:26 Dose: 3 mg Methenamine Hippurate (Hiprex Tab*) 1 gm PO BID [facility] Last Admin: 08/17/17 07:54 Dose: 1 gm Metoprolol Tartrate (Lopressor Tab*) 50 mg PO Q12HR [facility] Last Admin: 08/17/17 07:54 Dose: 50 mg Mometasone Furoate/Formoterol Fumar (Dulera 200/5 Mdi*) 2 puff INH BID [facility] Last Admin: 08/17/17 09:02 Dose: 2 puff Ondansetron HCl (Zofran Inj*) 4 mg IV Q6H PRN PRN Reason: NAUSEA Propafenone HCl (Rythmol Sr (Nf)) 225 mg PO BID [facility] Last Admin: 08/17/17 07:54 Dose: 225 mg Vital Signs - 8 hr 08/17/17 09:05 Pulse Rate 70 Respiratory 16 Rate O2 Sat by Pulse 98 Oximetry Oxygen Devices in Use Now: Nasal Cannula - 2L Appearance: Patient is a 67yo female who appears stated age and is sitting in the bed in [facility]. Eyes: No Scleral Icterus, PERRLA Ears/Nose/Mouth/Throat: NL Teeth, Lips, Gums, Clear Oropharnyx, Mucous Membranes Moist Neck: NL Appearance and Movements; NL JVP, Trachea Midline Respiratory: Symmetrical Chest Expansion and Respiratory Effort, - - Crackles in Bases. Diminshed throughout. Cardiovascular: NL Sounds; No Murmurs; No JVD, RRR, - - 2+ edema in B/L LE. Left more than right. No calf tenderness. Abdominal: NL Sounds; No Tenderness; No Distention, No Hepatosplenomegaly, - - CVA tenderness on right. Lymphatic: No Cervical Adenopathy Extremities: No Edema, No Clubbing, Cyanosis Skin: No Rash or Ulcers, No Nodules or Sclerosis Neurological: Alert and Oriented x 3, NL Sensation, NL Muscle Strength and Tone Result Diagrams: 08/17/17 04:18 08/17/17 04:18 Additional Lab and Data: Lab Results Assess/Plan/Problems-Billing Assessment: Patient is a 67yo female with a PMH significant for recurrent UTI, CAD, MS, HTN , RA and COPD who presents with bilateral flank pain and UTI who has presumed pyelonephritis and is being treated with Rocephin. - Patient Problems (1) UTI (urinary tract infection) Status: Acute Comment: Positive CVA tenderness and urinalysis. Not septic, likely has pyelonephritis. Continue Rocephin. Culture postive for E. Coli, sensitive to cephalosporins. Renal U/S negative for any hydronephrosis or stones. Repeat in AM due to slow recovery. Blood cultures postive from ER visit with pansensitive Streptococcus Gallolyticus Consider suppressive ABX at discharge. (2) Altered mental status Status: Acute Code(s): R41.82 - ALTERED MENTAL STATUS, UNSPECIFIED SNOMED Code(s): 356149594 Comment: Improved, Likely due to delirium from UTI. Patient has underlying dementia possibly from B12 deficiency. DANIEL positive, concern for Lupus or Sjogrens. Continue workup outpatient. (3) Atrial fibrillation Status: Chronic Code(s): I48.91 - UNSPECIFIED ATRIAL FIBRILLATION SNOMED Code(s): 29973547 Comment: NSR at this time. Continue Toprol, Propafenone and Eliquis for anticoagulation. (4) COPD (chronic obstructive pulmonary disease) Status: Chronic Code(s): J44.9 - CHRONIC OBSTRUCTIVE PULMONARY DISEASE, UNSPECIFIED SNOMED Code(s): 80984268 Comment: No signs of acute exacerbation at this time. Continue home inhalers. (5) HTN (hypertension) Status: Chronic Code(s): I10 - ESSENTIAL (PRIMARY) HYPERTENSION SNOMED Code( s): 73421233 Comment: Normotensive. Reintroduce antihypertensives as tolerated. Patient states she is usually hypotensive. Consider digoxin instead of dilitazem. Continue metoprolol to avoid rebound. Fluid discontinued due to edema. (6) Hypoxia Current Visit: Yes Status: Acute Code(s): R09.02 - HYPOXEMIA SNOMED Code(s ): 184590185 Comment: Likely from fluid overload due to fluids and diuretics being held. CXR shows mild vascular congestion. Lasix given today. Resume home Lasix tomorrow. (7) DVT prophylaxis Status: Acute Code(s): VZL6865 - SNOMED Code(s): 686434112 Comment: Continue Eliquis. (8) Full code status Status: Acute Code(s): Z78.9 - OTHER SPECIFIED HEALTH STATUS SNOMED Code(s) : 063079213 Status and Disposition: Patient is admitted inpatient. Hopeful discharge tomorrow.
[2017-08-17] MEDS ORDERED: Nitroglycerin TAB 0.4 MG* 0.4 MG TAB SL ONE (19:26)
[2017-08-17] MEDS ORDERED: Nitroglycerin TAB 0.4 MG* 0.4 MG TAB ONE (19:30)
[2017-08-17] MEDS ORDERED: Al Hydrox/Mg Hydrox/Simet LIQ* 30 ML UDC PO PRN (20:08)
--- NOTE | 2017-08-17 20:08 | PN ---
Progress Note - Progress Note Date of Service: 08/17/17 Note: Paged for chest pain and increase in SOB. Vitals unchanged. EKG shows afib with prolonged QTc. Resp exam: b/l expiratory wheezing with increase work of breathing. Respiratory called - giving Albuterol now. Will check CXR and trop. Follow up post treatment.
[2017-08-17] MEDS ORDERED: Furosemide IV* 10 MG/ML 2 ML VIAL (20 MG) IV ONE (20:32)
--- NOTE | 2017-08-17 20:37 | RAD ---
INDICATION: Short of breath August 09, 2017 COMPARISON: Chest x-ray August 09, 2017 TECHNIQUE: An AP portable view obtained at 2020 hours is submitted. FINDINGS: Bones/Soft Tissues: There are no acute bony findings. Cardiomediastinal: The heart is normal in size. The central pulmonary vessels and interstitium are prominent compatible with worsening vascular congestion. Lungs: There are no infiltrates. Pleura: There are small bilateral effusions. Other: None IMPRESSION: VASCULAR CONGESTION WITH MILD WORSENING
[2017-08-17] MEDS: Atorvastatin* 20 MG TAB PO SCH (20:43)
[2017-08-17] MEDS: Famotidine TAB* 20 MG PO SCH (20:44)
[2017-08-18] MEDS: HYDROmorphone INJ* 2 MG/ML CARPUJECT SYRINGE IV SLOW PU PRN ×4 (04:21→21:27)
[2017-08-18 05:40] LABS: ABS Basophils 0 10^3/ul (0-0.2); ABS Eosinophils 0.1 10^3/ul (0-0.6); ABS Lymphocytes 0.7 10^3/ul (1.0-4.8); ABS Monocytes 0.7 10^3/ul (0-0.8); ABS Neutrophils 4.2 10^3/ul (1.5-7.7); ABS Nucleated RBC 0 10^3/ul; Eosinophil % 1.4 % (0-6); Hematocrit 23 % (35-47); Hemoglobin 7.6 g/dl (12.0-16.0); Lymphocyte % 12.5 % (25-47); Mean Corpuscular HGB Conc 33 g/dl (31-36); Mean Corpuscular Hemoglobin 28 pg (27-31); Mean Corpuscular Volume 86 fL (80-97); Mean Platelet Volume 7 um3 (7.4-10.4); Nucleated Red Blood Cells % 0; Platelet Count 254 10^3/ul (150-450); Red Blood Count 2.71 10^6/ul (4.0-5.4); Red Cell Distribution Width 16 % (10.5-15); White Blood Count 5.7 10^3/ul (3.5-10.8)
[2017-08-18] MEDS ORDERED: Magnesium Sulf 4 GM/100 ML IV* 4,000 MG/100 ML BAG IVPB ONE (08:00)
[2017-08-18] MEDS: Mometasone/Formoter 200/5 MDI INH SCH ×2 (08:06→20:59)
[2017-08-18] MEDS: Cyanocobalamin TAB* 500 MCG PO SCH (08:35)
[2017-08-18] MEDS: Magnesium Oxide TAB* 400 MG PO SCH (08:35)
[2017-08-18] MEDS: Apixaban* 5 MG TAB PO SCH ×2 (08:36→21:28)
[2017-08-18] MEDS: Donepezil TAB* 5 MG PO SCH (08:36)
[2017-08-18] MEDS: Methenamine Hippurate TAB* 1 GM TAB PO SCH ×2 (08:37→23:10)
[2017-08-18] MEDS: Allopurinol TAB* 100 MG PO SCH (08:37)
[2017-08-18] MEDS: PROPAFENONE 225 MG PO SCH ×2 (08:37→21:34)
[2017-08-18] MEDS: Furosemide TAB* 40 MG PO SCH (08:38)
[2017-08-18] MEDS: Metoprolol Tartrate TAB* 50 mg PO SCH ×3 (08:44→21:43)
[2017-08-18] MEDS: Lisinopril TAB* 5 MG PO SCH (09:05)
[2017-08-18] MEDS ORDERED: Perflutren Lipid Microsphere* 3 ML VIAL ONE (11:02)
[2017-08-18] MEDS: Acetaminophen TAB* 325 MG PO PRN (11:24)
[2017-08-18] MEDS: Cyclobenzaprine TAB* 10 MG PO PRN (11:25)
--- NOTE | 2017-08-18 14:47 | RAD ---
INDICATION: Concern for hydronephrosis COMPARISON: Similar ultrasound dated November 23, 2015 TECHNIQUE: Real-time ultrasound examination of the bilateral kidneys and urinary bladder including grayscale and Doppler color flow analysis. FINDINGS: The right kidney measures 7.9 x 3.5 x 4.0 cm. There are at least 2 anechoic avascular cyst noted in the right kidney. There is a very mild degree of cortical thinning of the right kidney relative to the left with the right renal cortex measuring 9 mm in thickness compared to 1.2 cm on the left. There is no significant hydronephrosis. The thomas of the urinary bladder are smooth. There is a Calle catheter in place. Normal ureteral jets are identified bilaterally. IMPRESSION: 1. Slight degree of right-sided cortical thinning relative to the left and otherwise normal-appearing kidneys bilaterally. 2. The presence of a Calle catheter prevents more thorough physiologic evaluation of the urinary bladder. The urinary bladder does not exhibit any obvious abnormalities. Ureteral jets are recorded bilaterally.
[2017-08-18] MEDS: cefTRIAXone(*) 1 GM in NS 0.9% 50 ML* 50 ML IVPB SCH (15:56)
[2017-08-18] MEDS: Albuterol HFA INHALER* 8 gm MDI INH PRN (15:59)
--- NOTE | 2017-08-18 16:55 | ECHO ---
Patient: BETSEY SALCEDO [facility] Rec#: [id number] : 1950 Date: 08/18/2017 Age: 67y Height: 152.4 cm / 60.0 in Weight: 83.91 kg / 184.9 lbs Sex: F BSA: 1.81 Room#: 401 Admit Date#: 08/15/2017 Type: Inpatient Referring: Jonas Barnes Reading: Toni Hernandez MD Cyanide Pot Tender: Monique Johnson,JULIOCS,RDMS CC: Luis Land DO CC: Janes Toledo MD Transthoracic Echocardiogram Indication: CP, SOB BP: 104/52 HR: 73 Rhythm: NSR Findings History: CAD, CA, HTN, AFIB, COPD, ablation Technical Comments: The study quality is poor. The study is technically limited due to the patient's history of COPD. Left Ventricle: The left ventricular chamber size is normal. Mild concentric left ventricular hypertrophy is observed. Global left ventricular wall motion and contractility are within normal limits. There is normal left ventricular systolic function. The estimated ejection fraction is 60-65%. Abnormal left ventricular diastolic function is observed. Left Atrium: The left atrium is mildly dilated. Right Ventricle: The right ventricular chamber size and systolic function are within normal limits. The right ventricle wall thickness is mildly increased. Right Atrium: The right atrial cavity size is normal. Aortic Valve: The aortic valve structure is not well visualized. The aortic valve leaflets are mildly thickened. There is no evidence of aortic regurgitation. There is no evidence of aortic stenosis. Mitral Valve: The anterior leaflet of the mitral valve is thickened. There is severe thickening and restriction towards the annulus and prolapse towards the tip There is moderate mitral valve prolapse. There is prolapse of the anterior leaflet of the mitral valve. There is trace to mild mitral regurgitation. There is mild mitral stenosis. Tricuspid Valve: The tricuspid valve leaflets are normal. There is trace tricuspid regurgitation. There is evidence of mild to moderate pulmonary hypertension. Pulmonic Valve: The pulmonic valve structure is not well visualized. Pericardium: There is no significant pericardial effusion. A left pleural effusion is present. Aorta: The ascending aorta is not well visualized. There is no dilatation of the aortic arch. The aortic root is normal in size. Pulmonary Artery: The main pulmonary artery is not well visualized. Venous: The inferior vena cava is dilated. There is a greater than 50% respiratory change in the inferior vena cava dimension. Contrast: Definity was used to optimize study. A total of 3 ml was given Summary: There was not any prior study for comparison. Conclusions Global left ventricular wall motion and contractility are within normal limits. There is normal left ventricular systolic function. The estimated ejection fraction is 60-65%. The right ventricular chamber size and systolic function are within normal limits. There is no evidence of aortic stenosis. The anterior leaflet of the mitral valve is thickened. There is severe thickening and restriction towards the annulus and prolapse towards the tip There is prolapse of the anterior leaflet of the mitral valve. There is trace to mild mitral regurgitation. There is trace tricuspid regurgitation. There is evidence of mild to moderate pulmonary hypertension. There is no significant pericardial effusion. A left pleural effusion is present. The ascending aorta is not well visualized. MIKIE may give better visualization of the mitral valve Measurements Name Value Normal Range RVIDd (AP) 2D 2.1 cm (0.9 - 2.6) RAd ISD 4CH 4.8 cm (3.4 - 4.9) RA (A4C)W 3.6 cm (2.9 - 4.6) IVSd (2D) 1.1 cm (0.6 - 1) LVPWd (2D) 1.1 cm (0.6 - 1) LVIDd (2D) 4.1 cm (3.6 - 5.4) LVIDs (2D) 2.9 cm - LV FS (2D) 30 % (25 - 45) Aortic Annulus 1.9 cm (1.4 - 2.6) Ao root diameter (2D) 2.4 cm (2.1 - 3.5) Aortic arch 2.3 cm (1.8 - 3.4) LA dimension (AP) 2D 4.1 cm (2.3 - 3.8) LAd ISD 4CH 5.2 cm (2.9 - 5.3) LA ISD 4CH W 4.7 cm (2.5 - 4.5) Name Value Normal Range LA ESV SP 4CH (A/L) 71.39 ml - LA ESV SP 4CH (MOD) 66.89 ml - Name Value Normal Range MV E-wave Vmax 1.6 m/sec - MV deceleration time 258 msec - MV A-wave Vmax 1.3 m/sec - MV E:A ratio 1.2 ratio - LV septal e' Vmax 0.06 m/sec - LV lateral e' Vmax 0.06 m/sec - LV E:e' septal ratio 27 ratio - LV E:e' lateral ratio 27 ratio - Name Value Normal Range AV Vmax 1.5 m/sec - AV VTI 32 cm - AV peak gradient 9 mmHg - AV mean gradient 5.4 mmHg - LVOT Vmax 0.9 m/sec - LVOT VTI 21.4 cm - LVOT peak gradient 3.2 mmHg - LVOT mean gradient 1.7 mmHg - SIMON Vmax 0.7 m/sec - Name Value Normal Range MV Vmax 1.7 m/sec - MV VTI 52 cm - MV peak gradient 12 mmHg - MV mean gradient 5.5 mmHg - MV PHT 93 msec - MVA (PHT) 2.4 cm2 - Name Value Normal Range TR Vmax 3.8 m/sec - TR peak gradient 38 mmHg - RAP 8 mmHg - RVSP 46 mmHg - IVC diameter 2.3 cm - Name Value Normal Range PV Vmax 0.7 m/sec - PV peak gradient 2 mmHg -
--- NOTE | 2017-08-18 17:19 | PN ---
Subjective Date of Service: 08/18/17 Interval History: Patient had significant worsening of SOB overnight and an episode of CP. No signs of ACS. Patient had a troponin of .32 in an add on to morning labs before CP and 0.00 after chest pain. Given Lasix and improved significantly in the AM. Patient has continued CVA pain and tenderness mainly on the right. Patient states that is is not getting better. Patient denies F/C, N/V, abdominal pain, CP, dysuria, hematuria, diarrhea, constipation, pain in LE or other pain. Talked with Dr. Toledo about concern for Group D strep in Bloodstream being incongruous with E coli in urine. ID consult requested. Family History: Unchanged from Admission Social History: Unchanged from Admission Past Medical History: Unchanged from Admission Objective Active Medications: Acetaminophen (Tylenol Tab*) 650 mg PO Q4H PRN PRN Reason: FEVER/PAIN Last Admin: 08/18/17 11:24 Dose: 650 mg Hydrocodone Bitart/Acetaminophen ([place] 5-325 Tab*) 1 tab PO Q6H PRN PRN Reason: PAIN Last Admin: 08/17/17 02:03 Dose: 1 tab Al Hydrox/Mg Hydrox/Simethicone (Maalox Plus*) 30 ml PO Q4H PRN PRN Reason: INDIGESTION Albuterol (Ventolin Hfa Inhaler*) 2 puff INH Q4H PRN PRN Reason: SOB/WHEEZING Last Admin: 08/18/17 15:59 Dose: 2 puff Albuterol (Ventolin 2.5 Mg/3 Ml Neb.Daniela*) 2.5 mg INH Q4H PRN PRN Reason: SOB/WHEEZING Last Admin: 08/17/17 20:04 Dose: 2.5 mg Allopurinol (Zyloprim Tab*) 100 mg PO QAM [facility] Last Admin: 08/18/17 08:37 Dose: 100 mg Apixaban (Eliquis*) 5 mg PO BID [facility] Last Admin: 08/18/17 08:36 Dose: 5 mg Atorvastatin Calcium (Lipitor*) 20 mg PO BEDTIME [facility] Last Admin: 08/17/17 20:43 Dose: 20 mg Cyanocobalamin (Vitamin B12 Tab*) 1,000 mcg PO DAILY [facility] Last Admin: 08/18/17 08:35 Dose: 1,000 mcg Cyclobenzaprine HCl (Flexeril Tab*) 10 mg PO BID PRN PRN Reason: SPASMS Last Admin: 08/18/17 11:25 Dose: 10 mg Donepezil HCl (Aricept Tab*) 10 mg PO DAILY [facility] Last Admin: 08/18/17 08:36 Dose: 10 mg Famotidine (Pepcid Tab*) 20 mg PO BEDTIME [facility] PRN Reason: Protocol Last Admin: 08/17/17 20:44 Dose: 20 mg Furosemide (Lasix Tab*) 40 mg PO QAM [facility] Last Admin: 08/18/17 08:38 Dose: 40 mg Hydromorphone HCl (Dilaudid Inj*) 1 mg IV SLOW PU Q4H PRN PRN Reason: PAIN Last Admin: 08/18/17 16:10 Dose: 1 mg Ceftriaxone Sodium 1 gm/ (Sodium Chloride) 50 mls @ 200 mls/hr IVPB Q24H [facility] Last Admin: 08/18/17 15:56 Dose: 200 mls/hr Lisinopril (Prinivil Tab*) 2.5 mg PO DAILY [facility] Last Admin: 08/18/17 09:05 Dose: Not Given Magnesium Oxide (Magox 400 Tab*) 800 mg PO DAILY [facility] Last Admin: 08/18/17 08:35 Dose: 800 mg Melatonin (Melatonin (Nf)) 3 mg PO BEDTIME PRN PRN Reason: SLEEP Last Admin: 08/16/17 20:26 Dose: 3 mg Methenamine Hippurate (Hiprex Tab*) 1 gm PO BID [facility] Last Admin: 08/18/17 08:37 Dose: 1 gm Metoprolol Tartrate (Lopressor Tab*) 50 mg PO Q12HR [facility] Last Admin: 08/18/17 08:44 Dose: 50 mg Mometasone Furoate/Formoterol Fumar (Dulera 200/5 Mdi*) 2 puff INH BID [facility] Last Admin: 08/18/17 08:06 Dose: 2 puff Ondansetron HCl (Zofran Inj*) 4 mg IV Q6H PRN PRN Reason: NAUSEA Propafenone HCl (Rythmol Sr (Nf)) 225 mg PO BID [facility] Last Admin: 08/18/17 08:37 Dose: 225 mg Vital Signs - 8 hr 08/18/17 08/18/17 08/18/17 09:49 11:18 11:25 Temperature Pulse Rate 82 Respiratory 14 18 16 Rate Blood Pressure (mmHg) O2 Sat by Pulse 94 Oximetry 08/18/17 08/18/17 08/18/17 12:26 16:03 16:10 Temperature 97.2 F Pulse Rate 73 83 Respiratory 18 14 20 Rate Blood Pressure 107/51 (mmHg) O2 Sat by Pulse 98 98 Oximetry Oxygen Devices in Use Now: Nasal Cannula - 2L Appearance: Patient is a 67yo female who appears stated age and is sitting in the bed in [facility]. Eyes: No Scleral Icterus, PERRLA Ears/Nose/Mouth/Throat: NL Teeth, Lips, Gums, Clear Oropharnyx, Mucous Membranes Moist Neck: NL Appearance and Movements; NL JVP, Trachea Midline Respiratory: Symmetrical Chest Expansion and Respiratory Effort, - - Diminished , Slight crackles in bases. Slight expiratory wheezes in anterior, chest. Cardiovascular: NL Sounds; No Murmurs; No JVD, RRR, - - 2+ edema in LLE, 1+ in right. Abdominal: NL Sounds; No Tenderness; No Distention, No Hepatosplenomegaly, - - CVA tenderness more on right than left. No suprapubic tenderness. Lymphatic: No Cervical Adenopathy Extremities: No Clubbing, Cyanosis Skin: No Rash or Ulcers, No Nodules or Sclerosis Neurological: Alert and Oriented x 3, NL Sensation, NL Muscle Strength and Tone , - - CN II-XII intact. Result Diagrams: 08/18/17 05:01 08/18/17 05:01 Additional Lab and Data: Lab Results Microbiology and Other Data: Microbiology 08/18/17 12:57 Stool Occult Blood ([facility]) - Final Stool Assess/Plan/Problems-Billing Assessment: Patient is a 67yo female with a PMH significant for recurrent UTI, CAD, [place], HTN , RA and COPD who presents with bilateral flank pain and UTI who has presumed pyelonephritis and is being treated with Rocephin. Now has CHF exacerbation with continued normal EF. Improving with Lasix. Will look for source of Group D strep in blood. - Patient Problems (1) UTI (urinary tract infection) Current Visit: No Status: Acute Comment: Positive CVA tenderness and urinalysis. Not septic, likely has pyelonephritis. Continue Rocephin. Culture postive for E. Coli, sensitive to cephalosporins. Renal U/S negative for any hydronephrosis or stones. Blood cultures postive from ER visit with pansensitive Streptococcus Gallolyticus Appreciate ID and FM input. Will investigate other source of Strep G. Repeat BC negative. Echo shows no definite vegetation. Thickening of mitral valve leaflets present previously on echo from [facility]. Consider suppressive ABX at discharge. (2) CHF exacerbation Current Visit: Yes Status: Acute Code(s): I50.9 - HEART FAILURE, UNSPECIFIED SNOMED Code(s): 23762635 Comment: Lasix held for acute illness during hospitalization. BP improved but now fluid overloaded. Patient improving on Lasix. Patient is wary of overdiuresis due to previously being sent to ICU for Afib with RVR when diuresed at [facility]. Double dose of lasix today. Resume home dose tomorrow with home metolazone. Elevate legs. Calle in for fluid monitoring, will remove as soon as possible due to UTI. Echo showed EF 60-65%. (3) Altered mental status Current Visit: No Status: Acute Code(s): R41.82 - ALTERED MENTAL STATUS, UNSPECIFIED SNOMED Code(s): 866690420 Comment: Improved, Likely due to delirium from UTI. Patient has underlying dementia possibly from B12 deficiency. DANIEL positive, concern for Lupus or Sjogrens. Continue workup outpatient. (4) Atrial fibrillation Current Visit: No Status: Chronic Code(s): I48.91 - UNSPECIFIED ATRIAL FIBRILLATION SNOMED Code(s): 79030211 Comment: NSR at this time. Continue Toprol, Propafenone and Eliquis for anticoagulation. Hold diltiazem due to low BP and normal rate. (5) COPD (chronic obstructive pulmonary disease) Current Visit: No Status: Chronic Code(s): J44.9 - CHRONIC OBSTRUCTIVE PULMONARY DISEASE, UNSPECIFIED SNOMED Code(s): 45024709 Comment: No signs of acute exacerbation at this time. Continue home inhalers. (6) HTN (hypertension) Current Visit: No Status: Chronic Code(s): I10 - ESSENTIAL (PRIMARY) HYPERTENSION SNOMED Code(s): 34312721 Comment: Normotensive. Reintroduce antihypertensives as tolerated. Patient states she is usually hypotensive. Consider digoxin instead of dilitazem. Continue metoprolol to avoid rebound. Fluid discontinued due to edema. (7) Hypoxia Current Visit: Yes Status: Acute Code(s): R09.02 - HYPOXEMIA SNOMED Code(s ): 453842937 Comment: Worsened overnight. Likely from fluid overload due to fluids and diuretics being held. CXR shows mild vascular congestion. Lasix given today. Resume home Lasix tomorrow. (8) DVT prophylaxis Current Visit: No Status: Acute Code(s): IDJ0801 - SNOMED Code(s): 470540442 Comment: Continue Eliquis. (9) Full code status Current Visit: No Status: Acute Code(s): Z78.9 - OTHER SPECIFIED HEALTH STATUS SNOMED Code(s): 562613035 Status and Disposition: Patient is admitted inpatient.
[2017-08-18] MEDS: Famotidine TAB* 20 MG PO SCH (21:28)
[2017-08-18] MEDS: Atorvastatin* 20 MG TAB PO SCH (21:28)
[2017-08-19] MEDS: HYDROmorphone INJ* 2 MG/ML CARPUJECT SYRINGE IV SLOW PU PRN (02:39)
[2017-08-19] MEDS: Acetaminophen TAB* 325 MG PO PRN ×2 (02:39→09:02)
[2017-08-19] MEDS: Cyclobenzaprine TAB* 10 MG PO PRN ×2 (02:45→20:52)
[2017-08-19 06:39] LABS: ABS Basophils 0 10^3/ul (0-0.2); ABS Eosinophils 0.1 10^3/ul (0-0.6); ABS Lymphocytes 0.6 10^3/ul (1.0-4.8); ABS Monocytes 0.8 10^3/ul (0-0.8); ABS Neutrophils 4.6 10^3/ul (1.5-7.7); ABS Nucleated RBC 0 10^3/ul; Eosinophil % 1.4 % (0-6); Hematocrit 22 % (35-47); Hemoglobin 7.3 g/dl (12.0-16.0); Lymphocyte % 10.5 % (25-47); Mean Corpuscular HGB Conc 33 g/dl (31-36); Mean Corpuscular Hemoglobin 28 pg (27-31); Mean Corpuscular Volume 85 fL (80-97); Mean Platelet Volume 7 um3 (7.4-10.4); Nucleated Red Blood Cells % 0; Platelet Count 272 10^3/ul (150-450); Red Blood Count 2.59 10^6/ul (4.0-5.4); Red Cell Distribution Width 16 % (10.5-15); White Blood Count 6.1 10^3/ul (3.5-10.8)
--- NOTE | 2017-08-19 08:19 | PN ---
Subjective Date of Service: 08/19/17 Interval History: Patient seen and examined at bedside. Reports feeling about the same since yesterday. Occasionally, she feels more short of breath but overall feels her breathing has improved. Denies fever/chills, CP, n/v. Still endorses bilateral flank pain, R>L. Reports she was around 190lbs before coming in to the hospital. At baseline, she uses 2L O2 at night but not during the day. Family History: Unchanged from Admission Social History: Unchanged from Admission Past Medical History: Unchanged from Admission Objective Active Medications: Acetaminophen (Tylenol Tab*) 650 mg PO Q4H PRN PRN Reason: FEVER/PAIN Last Admin: 08/19/17 02:39 Dose: 650 mg Hydrocodone Bitart/Acetaminophen ([place] 5-325 Tab*) 1 tab PO Q6H PRN PRN Reason: PAIN Last Admin: 08/17/17 02:03 Dose: 1 tab Al Hydrox/Mg Hydrox/Simethicone (Maalox Plus*) 30 ml PO Q4H PRN PRN Reason: INDIGESTION Albuterol (Ventolin Hfa Inhaler*) 2 puff INH Q4H PRN PRN Reason: SOB/WHEEZING Last Admin: 08/18/17 15:59 Dose: 2 puff Albuterol (Ventolin 2.5 Mg/3 Ml Neb.Daniela*) 2.5 mg INH Q4H PRN PRN Reason: SOB/WHEEZING Last Admin: 08/17/17 20:04 Dose: 2.5 mg Allopurinol (Zyloprim Tab*) 100 mg PO QAM [facility] Last Admin: 08/18/17 08:37 Dose: 100 mg Apixaban (Eliquis*) 5 mg PO BID [facility] Last Admin: 08/18/17 21:28 Dose: 5 mg Atorvastatin Calcium (Lipitor*) 20 mg PO BEDTIME [facility] Last Admin: 08/18/17 21:28 Dose: 20 mg Cyanocobalamin (Vitamin B12 Tab*) 1,000 mcg PO DAILY [facility] Last Admin: 08/18/17 08:35 Dose: 1,000 mcg Cyclobenzaprine HCl (Flexeril Tab*) 10 mg PO BID PRN PRN Reason: SPASMS Last Admin: 08/19/17 02:45 Dose: 10 mg Donepezil HCl (Aricept Tab*) 10 mg PO DAILY [facility] Last Admin: 08/18/17 08:36 Dose: 10 mg Famotidine (Pepcid Tab*) 20 mg PO BEDTIME [facility] PRN Reason: Protocol Last Admin: 08/18/17 21:28 Dose: 20 mg Furosemide (Lasix Tab*) 40 mg PO QAM [facility] Last Admin: 08/18/17 08:38 Dose: 40 mg Hydromorphone HCl (Dilaudid Inj*) 1 mg IV SLOW PU Q4H PRN PRN Reason: PAIN Last Admin: 08/19/17 02:39 Dose: 1 mg Ceftriaxone Sodium 1 gm/ (Sodium Chloride) 50 mls @ 200 mls/hr IVPB Q24H [facility] Last Admin: 08/18/17 15:56 Dose: 200 mls/hr Lisinopril (Prinivil Tab*) 2.5 mg PO DAILY [facility] Last Admin: 08/18/17 09:05 Dose: Not Given Magnesium Oxide (Magox 400 Tab*) 800 mg PO DAILY [facility] Last Admin: 08/18/17 08:35 Dose: 800 mg Melatonin (Melatonin (Nf)) 3 mg PO BEDTIME PRN PRN Reason: SLEEP Last Admin: 08/16/17 20:26 Dose: 3 mg Methenamine Hippurate (Hiprex Tab*) 1 gm PO BID [facility] Last Admin: 08/18/17 23:10 Dose: 1 gm Metolazone (Zaroxolyn Tab*) 2.5 mg PO TuTh@0830 [facility] Metoprolol Tartrate (Lopressor Tab*) 50 mg PO Q12HR [facility] Last Admin: 08/18/17 21:43 Dose: Not Given Mometasone Furoate/Formoterol Fumar (Dulera 200/5 Mdi*) 2 puff INH BID [facility] Last Admin: 08/18/17 20:59 Dose: 2 puff Ondansetron HCl (Zofran Inj*) 4 mg IV Q6H PRN PRN Reason: NAUSEA Potassium Chloride (Klor Con Er Tab*) 10 meq PO DAILY [facility] Propafenone HCl (Rythmol Sr (Nf)) 225 mg PO BID [facility] Last Admin: 08/18/17 21:34 Dose: 225 mg Vital Signs - 8 hr 08/19/17 08/19/17 08/19/17 02:39 02:45 03:49 Temperature 98.1 F Pulse Rate 84 Respiratory 18 18 16 Rate Blood Pressure 121/51 (mmHg) O2 Sat by Pulse 96 Oximetry 08/19/17 08/19/17 08/19/17 05:12 06:09 07:18 Temperature 98.1 F Pulse Rate 91 Respiratory 18 16 18 Rate Blood Pressure 82/28 (mmHg) O2 Sat by Pulse 97 Oximetry 08/19/17 08/19/17 07:30 07:46 Temperature Pulse Rate 91 Respiratory Rate Blood Pressure 88/48 115/46 (mmHg) O2 Sat by Pulse 98 Oximetry Oxygen Devices in Use Now: Nasal Cannula Appearance: Older female, lying in bed, NAD Eyes: No Scleral Icterus, PERRLA Ears/Nose/Mouth/Throat: Clear Oropharnyx, Mucous Membranes Moist Neck: NL Appearance and Movements; NL JVP Respiratory: Symmetrical Chest Expansion and Respiratory Effort, - - crackles heard in posterior bases, expiratory wheezing heard anteriorly on left chest Cardiovascular: NL Sounds; No Murmurs; No JVD, RRR, - - 2+ edema in LLE, 1+ in RLE Abdominal: - - BS +, bilateral CVA tenderness Extremities: No Clubbing, Cyanosis Skin: No Rash or Ulcers Neurological: Alert and Oriented x 3, NL Sensation, NL Muscle Strength and Tone Lines/Tubes/Other Access: Clean, Dry and Intact Peripheral IV Nutrition: Taking PO's Result Diagrams: 08/19/17 06:06 08/19/17 06:06 Additional Lab and Data: Lab Results Microbiology and Other Data: Microbiology 08/18/17 12:57 Stool Occult Blood (TYLER) - Final Stool Assess/Plan/Problems-Billing Assessment: Patient is a 67yo female with a PMH significant for recurrent UTI, CAD, [place], HTN , RA and COPD who presents with bilateral flank pain and UTI who has presumed pyelonephritis and is being treated with Rocephin. Now has CHF exacerbation with continued normal EF. Improving with Lasix. Will look for source of Group D strep in blood. - Patient Problems (1) UTI (urinary tract infection) Comment: Positive CVA tenderness and urinalysis. Not septic, likely has pyelonephritis. Continue Rocephin. Culture postive for E. Coli, sensitive to cephalosporins. Renal U/S negative for any hydronephrosis or stones. Blood cultures postive from ER visit with pansensitive Streptococcus Gallolyticus Appreciate ID and FM input. Will investigate other source of Strep G. Repeat BC negative. Echo shows no definite vegetation. Thickening of mitral valve leaflets present previously on echo from [facility]. Consider suppressive ABX at discharge. (2) CHF exacerbation Code(s): I50.9 - HEART FAILURE, UNSPECIFIED Comment: Lasix initially held for acute illness during hospitalization. BP improved but now fluid overloaded. Now with improvement after restarting Lasix. Patient is wary of overdiuresis due to previously being sent to ICU for Afib with RVR when diuresed at [facility]. Continue home dose of Lasix with home metolazone. Elevate legs. Calle in for fluid monitoring, will remove as soon as possible due to UTI. Echo showed EF 60-65%. (3) Anemia Code(s): D64.9 - ANEMIA, UNSPECIFIED Comment: Hgb 11.2 on admitting labs but baseline appears to be closer to 9 and 10 Perhaps element of hemoconcentration secondary to dehydration on admission HH now stable, but still <8 ? etiology - suspect aspect of hemodilution from fluid overload and anemia of chronic disease (given normocytic anemia) Stool occult negative, plan to repeat Workup pending - includes iron studies, B12, folate Recheck CBC, may need to transfuse, given cardiac hx and persistent SOB/ hypoxia. (4) Altered mental status Code(s): R41.82 - ALTERED MENTAL STATUS, UNSPECIFIED Comment: Improved, Likely due to delirium from UTI. Patient has underlying dementia, possibly from B12 deficiency. DANIEL positive, concern for Lupus or Sjogrens. Continue workup outpatient. (5) Atrial fibrillation Code(s): I48.91 - UNSPECIFIED ATRIAL FIBRILLATION Comment: NSR at this time. Continue Toprol, Propafenone, and Eliquis for anticoagulation. Hold diltiazem due to low BP and normal rate. (6) COPD (chronic obstructive pulmonary disease) Code(s): J44.9 - CHRONIC OBSTRUCTIVE PULMONARY DISEASE, UNSPECIFIED Comment: No signs of acute exacerbation at this time. Continue home inhalers. (7) HTN (hypertension) Code(s): I10 - ESSENTIAL (PRIMARY) HYPERTENSION Comment: Normotensive. Reintroduce antihypertensives as tolerated. Patient states she is usually hypotensive. Consider digoxin instead of dilitazem. Continue metoprolol to avoid rebound. Fluid discontinued due to edema. (8) Hypoxia Code(s): R09.02 - HYPOXEMIA Comment: Likely from fluid overload due to fluids and diuretics being held, as well as anemia. CXR shows mild vascular congestion. Continue home Lasix. (9) DVT prophylaxis Comment: Continue Eliquis. (10) Full code status Code(s): Z78.9 - OTHER SPECIFIED HEALTH STATUS Status and Disposition: Patient is admitted inpatient.
[2017-08-19] MEDS ORDERED: Metolazone TAB* 5 MG PO SCH (08:30)
[2017-08-19] MEDS: Mometasone/Formoter 200/5 MDI INH SCH ×2 (08:47→19:41)
[2017-08-19] MEDS: Apixaban* 5 MG TAB PO SCH ×2 (08:47→20:51)
[2017-08-19] MEDS: Cyanocobalamin TAB* 500 MCG PO SCH (08:47)
[2017-08-19] MEDS: Furosemide TAB* 40 MG PO SCH (08:49)
[2017-08-19] MEDS: Metoprolol Tartrate TAB* 50 mg PO SCH ×2 (08:49→20:52)
[2017-08-19] MEDS: Potassium Chlor TAB* 10 MEQ TAB.ER PO SCH (08:50)
[2017-08-19] MEDS: Magnesium Oxide TAB* 400 MG PO SCH (08:50)
[2017-08-19] MEDS: Donepezil TAB* 5 MG PO SCH (08:50)
[2017-08-19] MEDS: Allopurinol TAB* 100 MG PO SCH (08:50)
[2017-08-19] MEDS: Methenamine Hippurate TAB* 1 GM TAB PO SCH ×2 (09:03→20:51)
[2017-08-19] MEDS: PROPAFENONE 225 MG PO SCH ×2 (09:05→20:51)
[2017-08-19] MEDS: Lisinopril TAB* 5 MG PO SCH (09:05)
[2017-08-19] MEDS ORDERED: Magnesium Sulfate 2 GM IV* 2 GM/50 ML BAG IVPB ONE (13:51)
[2017-08-19] MEDS ORDERED: Potassium Chlor TAB* 20 MEQ TAB.ER PO ONE (13:51)
[2017-08-19] MEDS: cefTRIAXone(*) 1 GM in NS 0.9% 50 ML* 50 ML IVPB SCH (15:23)
[2017-08-19 15:33] LABS: ABS Basophils 0 10^3/ul (0-0.2); ABS Eosinophils 0 10^3/ul (0-0.6); ABS Lymphocytes 0.4 10^3/ul (1.0-4.8); ABS Monocytes 0.8 10^3/ul (0-0.8); ABS Neutrophils 4.3 10^3/ul (1.5-7.7); ABS Nucleated RBC 0 10^3/ul; Eosinophil % 0.7 % (0-6); Hematocrit 23 % (35-47); Hemoglobin 7.6 g/dl (12.0-16.0); Mean Corpuscular HGB Conc 33 g/dl (31-36); Mean Corpuscular Hemoglobin 28 pg (27-31); Mean Corpuscular Volume 85 fL (80-97); Mean Platelet Volume 7 um3 (7.4-10.4); Nucleated Red Blood Cells % 0; Platelet Count 242 10^3/ul (150-450); Red Blood Count 2.72 10^6/ul (4.0-5.4); Red Cell Distribution Width 16 % (10.5-15); White Blood Count 5.6 10^3/ul (3.5-10.8)
[2017-08-19] MEDS: HYDROcodone/ACETAMIN 5-325 MG* 1 TAB PO PRN ×2 (15:46→23:04)
[2017-08-19] MEDS ORDERED: Furosemide IV* 10 MG/ML 2 ML VIAL (20 MG) IV SLOW PU SCH (20:00)
[2017-08-19] MEDS: Atorvastatin* 20 MG TAB PO SCH (20:52)
[2017-08-19] MEDS: Famotidine TAB* 20 MG PO SCH (20:52)
--- NOTE | 2017-08-19 22:28 | CONS ---
CONSULTATION REPORT: DATE OF CONSULT: 08/19/17 REQUESTING PROVIDER: BASIL Gregory CONSULTING SERVICE: Infectious Disease. REASON FOR CONSULT: Streptococcal bacteremia. IMPRESSION: 1. Streptococcus gallolyticus bacteremia in the setting of a mitral valve prolapse which does predispose to infective endocarditis, which is on the differential. She has prosthetic hips and left knee, which are asymptomatic. Of note, Strep gallolyticus is associated with colon polyp and malignancy. 2. Right flank pain, history of UTI and imaging shows no hydronephrosis or infective stones, but she does have E. coli in the urine and leukocyte esterase in the urinalysis. She does appear to have pyelonephritis as well. 3. Obesity. 4. Coronary artery disease, history of [place]. 5. COPD. 6. Rheumatoid arthritis. 7. Status post bilateral hip arthroplasties and left knee arthroplasty. 8. Encephalopathy, present on admission, improving. RECOMMENDATIONS: 1. Continue ceftriaxone 1 g daily. The followup blood cultures on admission here are negative. We will obtain a transesophageal echocardiogram to rule out infective endocarditis. 2. She will need a colonoscopy as an outpatient. HISTORY OF PRESENT ILLNESS: This is a 67-year-old woman with rheumatoid arthritis, coronary artery disease admitted with change in mental status. She was brought by her family when they found her to be not making sense and less responsive. She had been to the ER on the with right flank pain. She was given a dose of ceftriaxone and blood cultures were taken then. They have since come back 4/4 bottles as strep gallolyticus and a urine culture that day that grew E. coli and 100,000 colonies sensitive to ceftriaxone. She came back the with worsening symptoms and no change in mental status. Her blood cultures taken at that time are no growth. Urine cultures no growth on the in the evening. Her main complaint now is ongoing right flank pain, which is little bit better. She does not have urinary frequency or dysuria. It feels like her usual kidney infection. Renal ultrasound showed no hydronephrosis. She remembers some fevers, chills and sweats before she came to the hospital but cannot remember much else of the history which was obtained instead from review of the medical record. She has no joint pain and feels like her confusion is improving. She has no back pain either. PAST MEDICAL HISTORY: 1. Rheumatoid arthritis. 2. Coronary artery disease and history of [place]. 3. Hypertension. 4. COPD. 5. Skin cancer. 6. Atrial fibrillation. 7. Dementia. 8. Staghorn renal calculi. 9. Osteoarthritis, status post bilateral hip arthroplasties and left knee arthroplasty. 10. Status post cholecystectomy. 11. Status post appendectomy. 12. Status post tonsillectomy. 13. History of ablation for atrial fibrillation. 14. Status post shoulder arthroscopy. 15. Status post . 16. Status post gastric stapling. MEDICATIONS: 1. Tylenol. 2. Allopurinol. 3. Apixaban. 4. Lipitor. 5. Cyclobenzaprine. 6. Cyanocobalamin. 7. Donepezil. 8. Famotidine. 9. Lisinopril. 10. Methenamine 11. Metolazone. 12. Potassium. 13. Propafenone. 14. Ceftriaxone 1 g a day. ALLERGIES: PROGESTERONE and OFLOXACIN. FAMILY HISTORY: Both parents with coronary artery disease and [place]. SOCIAL HISTORY: She lives in [place] with her . 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 She has no travel or sick contacts. REVIEW OF SYSTEMS: A 14-point review of systems was negative and as noted above. PHYSICAL EXAM: Vital Signs: Temperature 36.7, heart rate 100, respiratory rate 16, blood pressure 115/46, oxygen saturation 98% on 2 L. In general, she is awake. Not in distress. Neurologic: She is oriented x3, follows all commands. HEENT: There is no conjunctival hemorrhage. Oropharynx: Without lesions. Neck: Supple. Lymph Nodes: There is no inguinal, axillary or epitrochlear lymphadenopathy. Heart: Regular and tachycardic without murmurs. Lungs: Clear to auscultation bilaterally. Abdomen: Soft, nontender, nondistended, there are bowel sounds present. Skin: There is no rash or splinter hemorrhages. Musculoskeletal: There is no spine tenderness on palpation. No joint synovitis. DIAGNOSTIC STUDIES/LAB DATA: White blood cell count 5, hemoglobin 7, platelets 242, MCV is 85, creatinine is 0.8. Please see impression and recommendations as outlined above, which I have discussed with Gali Conteh NP. Thank you for asking me to see Ms. Cotto in consultation. [id number]/[facility] #: [id number] [facility]
[2017-08-20] MEDS: HYDROmorphone INJ* 2 MG/ML CARPUJECT SYRINGE IV SLOW PU PRN ×2 (01:59→11:51)
[2017-08-20 06:42] LABS: ABS Basophils 0 10^3/ul (0-0.2); ABS Eosinophils 0.1 10^3/ul (0-0.6); ABS Lymphocytes 0.9 10^3/ul (1.0-4.8); ABS Monocytes 0.8 10^3/ul (0-0.8); ABS Nucleated RBC 0 10^3/ul; Eosinophil % 1.3 % (0-6); Hematocrit 27 % (35-47); Hemoglobin 8.8 g/dl (12.0-16.0); Lymphocyte % 13.6 % (25-47); Mean Corpuscular HGB Conc 33 g/dl (31-36); Mean Corpuscular Hemoglobin 28 pg (27-31); Mean Corpuscular Volume 85 fL (80-97); Mean Platelet Volume 7 um3 (7.4-10.4); Nucleated Red Blood Cells % 0; Platelet Count 303 10^3/ul (150-450); Red Blood Count 3.21 10^6/ul (4.0-5.4); Red Cell Distribution Width 17 % (10.5-15); White Blood Count 6.9 10^3/ul (3.5-10.8)
[2017-08-20 06:55] LABS: EGFR Non-African American 74.1 (>60)
[2017-08-20] MEDS: Mometasone/Formoter 200/5 MDI INH SCH ×2 (07:39→19:52)
[2017-08-20] MEDS: Acetaminophen TAB* 325 MG PO PRN (07:54)
[2017-08-20] MEDS ORDERED: Potassium Chlor TAB* 20 MEQ TAB.ER PO ONE (08:27)
--- NOTE | 2017-08-20 08:28 | PN ---
Subjective Date of Service: 08/20/17 Interval History: Patient seen and examined at bedside. Informed that she had 13 beat run of NSVT this AM that was symptomatic (pt reported palpitations and discomfort). Patient has then progressed to afib with RVR with bursts of NSVT that remained symptomatic (SOB, palpitations). EKG obtained and patient currently on continuous EKG. She states, "I feel like I'm in afib; the last time this happened I needed an ablation." Denies other complaints - flank pain is about the same, does not feel her breathing is significantly worse, though she is more dyspneic. Tele: A Fib with RVR 160s-180s with bursts of NSVT Family History: Unchanged from Admission Social History: Unchanged from Admission Past Medical History: Unchanged from Admission Objective Active Medications: Acetaminophen (Tylenol Tab*) 650 mg PO Q4H PRN PRN Reason: FEVER/PAIN Last Admin: 08/20/17 07:54 Dose: 650 mg Hydrocodone Bitart/Acetaminophen ([place] 5-325 Tab*) 1 tab PO Q6H PRN PRN Reason: PAIN Last Admin: 08/19/17 23:04 Dose: 1 tab Al Hydrox/Mg Hydrox/Simethicone (Maalox Plus*) 30 ml PO Q4H PRN PRN Reason: INDIGESTION Albuterol (Ventolin Hfa Inhaler*) 2 puff INH Q4H PRN PRN Reason: SOB/WHEEZING Last Admin: 08/18/17 15:59 Dose: 2 puff Albuterol (Ventolin 2.5 Mg/3 Ml Neb.Daniela*) 2.5 mg INH Q4H PRN PRN Reason: SOB/WHEEZING Last Admin: 08/17/17 20:04 Dose: 2.5 mg Allopurinol (Zyloprim Tab*) 100 mg PO QAM [facility] Last Admin: 08/19/17 08:50 Dose: 100 mg Apixaban (Eliquis*) 5 mg PO BID [facility] Last Admin: 08/19/17 20:51 Dose: 5 mg Atorvastatin Calcium (Lipitor*) 20 mg PO BEDTIME [facility] Last Admin: 08/19/17 20:52 Dose: 20 mg Cyanocobalamin (Vitamin B12 Tab*) 1,000 mcg PO DAILY [facility] Last Admin: 08/19/17 08:47 Dose: 1,000 mcg Cyclobenzaprine HCl (Flexeril Tab*) 10 mg PO BID PRN PRN Reason: SPASMS Last Admin: 08/19/17 20:52 Dose: 10 mg Donepezil HCl (Aricept Tab*) 10 mg PO DAILY [facility] Last Admin: 08/19/17 08:50 Dose: 10 mg Famotidine (Pepcid Tab*) 20 mg PO BEDTIME [facility] PRN Reason: Protocol Last Admin: 08/19/17 20:52 Dose: 20 mg Ferrous Sulfate (Ferrous Sulfate Tab*) 325 mg PO DAILY [facility] Furosemide (Lasix Tab*) 40 mg PO QAM [facility] Last Admin: 08/19/17 08:49 Dose: 40 mg Hydromorphone HCl (Dilaudid Inj*) 1 mg IV SLOW PU Q4H PRN PRN Reason: PAIN Last Admin: 08/20/17 01:59 Dose: 1 mg Ceftriaxone Sodium 1 gm/ (Sodium Chloride) 50 mls @ 200 mls/hr IVPB Q24H [facility] Last Admin: 08/19/17 15:23 Dose: 200 mls/hr Lisinopril (Prinivil Tab*) 2.5 mg PO DAILY [facility] Last Admin: 08/19/17 09:05 Dose: Not Given Magnesium Oxide (Magox 400 Tab*) 800 mg PO DAILY [facility] Last Admin: 08/19/17 08:50 Dose: 800 mg Melatonin (Melatonin (Nf)) 3 mg PO BEDTIME PRN PRN Reason: SLEEP Last Admin: 08/16/17 20:26 Dose: 3 mg Methenamine Hippurate (Hiprex Tab*) 1 gm PO BID [facility] Last Admin: 08/19/17 20:51 Dose: 1 gm Metolazone (Zaroxolyn Tab*) 2.5 mg PO TuTh@0830 [facility] Last Admin: 08/19/17 09:08 Dose: 2.5 mg Metoprolol Tartrate (Lopressor Tab*) 50 mg PO Q12HR [facility] Last Admin: 08/19/17 20:52 Dose: 50 mg Mometasone Furoate/Formoterol Fumar (Dulera 200/5 Mdi*) 2 puff INH BID [facility] Last Admin: 08/20/17 07:39 Dose: 2 puff Ondansetron HCl (Zofran Inj*) 4 mg IV Q6H PRN PRN Reason: NAUSEA Potassium Chloride (Klor Con Er Tab*) 40 meq PO ONCE ONE Stop: 08/20/17 08:28 Potassium Chloride (Klor Con Er Tab*) 20 meq PO DAILY [facility] Propafenone HCl (Rythmol Sr (Nf)) 225 mg PO BID [facility] Last Admin: 08/19/17 20:51 Dose: 225 mg Vital Signs - 8 hr 08/20/17 08/20/17 08/20/17 01:59 03:09 03:22 Temperature 97.7 F Pulse Rate 79 Respiratory 18 12 18 Rate Blood Pressure 115/56 (mmHg) O2 Sat by Pulse 95 Oximetry 08/20/17 08/20/17 08/20/17 07:17 07:40 08:00 Temperature 97.9 F Pulse Rate 81 63 Respiratory 18 16 18 Rate Blood Pressure 132/59 (mmHg) O2 Sat by Pulse 98 98 Oximetry Oxygen Devices in Use Now: Nasal Cannula Appearance: Older female, lying in bed, pale, appears uncomfortable. Eyes: No Scleral Icterus, PERRLA Ears/Nose/Mouth/Throat: Clear Oropharnyx, Mucous Membranes Moist Neck: NL Appearance and Movements; NL JVP Respiratory: Symmetrical Chest Expansion and Respiratory Effort, Clear to Auscultation Cardiovascular: - - irregularly irregular, rapid heart beat Abdominal: NL Sounds; No Tenderness; No Distention Extremities: No Clubbing, Cyanosis Skin: No Rash or Ulcers Neurological: Alert and Oriented x 3, NL Muscle Strength and Tone Lines/Tubes/Other Access: Clean, Dry and Intact Peripheral IV Nutrition: Taking PO's Result Diagrams: 08/20/17 05:43 08/20/17 05:43 Additional Lab and Data: Lab Results Microbiology and Other Data: Microbiology 08/18/17 12:57 Stool Occult Blood (TYLER) - Final Stool Assess/Plan/Problems-Billing Assessment: Patient is a 67yo female with a PMH significant for recurrent UTI, CAD, [place], HTN , RA and COPD who presents with bilateral flank pain and UTI who has presumed pyelonephritis and is being treated with Rocephin. Now has CHF exacerbation with continued normal EF. Improving with Lasix. Will look for source of Group D strep in blood. - Patient Problems (1) Atrial fibrillation Code(s): I48.91 - UNSPECIFIED ATRIAL FIBRILLATION Comment: In Afib with RVR with NSVT noted Will give one dose digoxin now Cardiology consult requested and appreciated Continue Toprol, Propafenone, and Eliquis for anticoagulation. Hold diltiazem due to low BP and normal rate. (2) UTI (urinary tract infection) Comment: Positive CVA tenderness and urinalysis. Not septic, likely has pyelonephritis. Continue Rocephin. Culture postive for E. Coli, sensitive to cephalosporins. Renal U/S negative for any hydronephrosis or stones. Blood cultures postive from ER visit with pansensitive Streptococcus Gallolyticus Appreciate ID and FM input. Will investigate other source of Strep G. Repeat BC negative. Echo shows no definite vegetation. Thickening of mitral valve leaflets present previously on echo from [facility]. Consider suppressive ABX at discharge. (3) CHF exacerbation Code(s): I50.9 - HEART FAILURE, UNSPECIFIED Comment: Baseline wt ~190 per patient, down from 200 to 197. Lasix initially held for acute illness during hospitalization. BP improved but now fluid overloaded. Now with improvement after restarting Lasix. Patient is wary of overdiuresis due to previously being sent to ICU for Afib with RVR when diuresed at [facility]. Continue home dose of Lasix with home metolazone. Elevate legs. Calle in for fluid monitoring, will remove as soon as possible due to UTI. Echo showed EF 60-65%. (4) Anemia Code(s): D64.9 - ANEMIA, UNSPECIFIED Comment: Hgb 11.2 on admitting labs but baseline appears to be closer to 9 and 10 Perhaps element of hemoconcentration secondary to dehydration on admission HH now stable, but still <8 ? etiology - suspect aspect of hemodilution from fluid overload and anemia of chronic disease (given normocytic anemia) Stool occult negative, plan to repeat Low iron - start ferrous sulfate s/p 1 unit PRBC on 08/19, given cardiac hx and hypoxia (5) Altered mental status Code(s): R41.82 - ALTERED MENTAL STATUS, UNSPECIFIED Comment: Improved, Likely due to delirium from UTI. Patient has underlying dementia, possibly from B12 deficiency. DANIEL positive, concern for Lupus or Sjogrens. Continue workup outpatient. (6) COPD (chronic obstructive pulmonary disease) Code(s): J44.9 - CHRONIC OBSTRUCTIVE PULMONARY DISEASE, UNSPECIFIED Comment: No signs of acute exacerbation at this time. Continue home inhalers. (7) HTN (hypertension) Code(s): I10 - ESSENTIAL (PRIMARY) HYPERTENSION Comment: Normotensive. Reintroduce antihypertensives as tolerated. Patient states she is usually hypotensive. Consider digoxin instead of dilitazem. Continue metoprolol to avoid rebound. Fluid discontinued due to edema. (8) Hypoxia Code(s): R09.02 - HYPOXEMIA Comment: Likely from fluid overload due to fluids and diuretics being held, as well as anemia. CXR shows mild vascular congestion. Continue home Lasix. (9) DVT prophylaxis Comment: Continue Eliquis. (10) Full code status Code(s): Z78.9 - OTHER SPECIFIED HEALTH STATUS Status and Disposition: Patient is admitted inpatient. Transfer to [address] [place] [address].
[2017-08-20] MEDS: Metoprolol Tartrate TAB* 50 mg PO SCH ×2 (08:42→21:36)
[2017-08-20] MEDS: Donepezil TAB* 5 MG PO SCH (08:42)
[2017-08-20] MEDS: Allopurinol TAB* 100 MG PO SCH (08:42)
[2017-08-20] MEDS: Lisinopril TAB* 5 MG PO SCH (08:42)
[2017-08-20] MEDS: Furosemide TAB* 40 MG PO SCH (08:43)
[2017-08-20] MEDS: Methenamine Hippurate TAB* 1 GM TAB PO SCH ×2 (08:43→21:55)
[2017-08-20] MEDS: Apixaban* 5 MG TAB PO SCH ×2 (08:43→21:54)
[2017-08-20] MEDS: Magnesium Oxide TAB* 400 MG PO SCH (08:43)
[2017-08-20] MEDS: Potassium Chlor TAB* 10 MEQ TAB.ER PO SCH ×2 (08:43→08:57)
[2017-08-20] MEDS: PROPAFENONE 225 MG PO SCH (08:43)
[2017-08-20] MEDS ORDERED: Magnesium Sulfate IV* 3 GM in NS 0.9% 100 ML* 100 ML IVPB ONE (09:12)
[2017-08-20] MEDS ORDERED: Digoxin IV* 0.5 MG/2 ML AMP (0.25 MG/ML) IV SLOW PU ONE (09:24)
[2017-08-20] MEDS ORDERED: Magnesium Sulfate 2 GM IV IVPB ONE (10:00)
[2017-08-20] MEDS ORDERED: Magnesium Sulfate 1 GM IV* 1 GM/100 ML BAG IV ONE (11:00)
[2017-08-20] MEDS ORDERED: Naloxone* 0.4 MG/ML 1 ML VIAL ONE (15:33)
[2017-08-20] MEDS ORDERED: Lidocaine 2% VISCOUS* 15 ML UDC ONE (15:33)
[2017-08-20] MEDS ORDERED: fentaNYL* 50 MCG/ML 2 ML VIAL (100 MCG VIAL) ONE (15:33)
[2017-08-20] MEDS ORDERED: Flumazenil* 0.1 MG/ML 5 ML MDV ONE (15:33)
[2017-08-20] MEDS ORDERED: Midazolam* 1 MG/ML 10 ML VIAL (10 MG) ONE (15:34)
[2017-08-20] MEDS ORDERED: Metoprolol Tartrate IV* 1 MG/ML 5 ML VIAL ONE (16:14)
[2017-08-20] MEDS ORDERED: Digoxin IV* 0.5 MG/2 ML AMP (0.25 MG/ML) IV ONE (16:25)
[2017-08-20] MEDS ORDERED: Levalbuterol 1.25MG/0.5ML NEB INH PRN (17:24)
[2017-08-20] MEDS ORDERED: PROCHLORPERAZINE INJ 5 MG/ML 2 ML VIAL IV PRN (17:26)
--- NOTE | 2017-08-20 17:32 | PN ---
Hospitalist Progress Note Date of Service: 08/20/17 Appreciate cardiology consult. MIKIE done - called to bedside by [facility] team, MV vegetation noted on MIKIE. With strep bacteremia, continue current treatment of ceftriaxone. Dr. Toro updated; he will follow with patient tomorrow. Plan to place PICC line. Plan for transfer to ICU, as patient is in afib with RVR. Digoxin given. Patient noted to have prolonged QTc. Propafenone discontinued. Given recurrent tachycardia/afib, will replace albuterol with Xopenex. Will also hold furosemide and metolazone given low blood pressures and allow for day to day provider evaluation of patient's fluid and hemodynamic status and need for diuretic therapy. Continue metoprolol with hold parameters. Discontinue ondansetron (replaced with low dose compazine). Family updated. Additional time spent on this patient, including face to face time: 40 minutes.
--- NOTE | 2017-08-20 17:40 | TEE ---
Patient: BETSEY SALCEDO [facility] Rec#: [id number] : 1950 Date: 08/20/2017 Age: 67y Height: 152 cm / 59.8 in Weight: 92 kg / 202.8 lbs Sex: F BSA: 1.87 Room#: 453 Admit Date#: 08/15/2017 Type: Inpatient Referring: Gali Conteh Performing: Sobia Velasco MD Reading: Sobia Velasco MD Coupling Machine Operator: Monique Johnson RD,RDMS Nurse: Merry Velasquez RN Transesophageal Echocardiogram Indication: Bacteremia BP: 116/58 HR: 82 Rhythm: NSR Findings History: CAD, LA, AFIB, COPD, ablation Technical Comments: The study quality is good. Patient went into rapid AFIB during procedure Left Ventricle: The left ventricular chamber size is normal. Mild concentric left ventricular hypertrophy is observed. Global left ventricular wall motion and contractility are within normal limits. The estimated ejection fraction is 55-60%. The assessment of diastolic function is non-diagnostic. Left Atrium: The left atrium is mildly dilated. There is no thrombus visualized in the left atrial appendage. Right Ventricle: The right ventricular chamber size and systolic function are within normal limits. Right Atrium: The right atrial cavity size is normal. The interatrial septum appears lipomatous. The bubble study is negative. A patent foramen ovale is not demonstrated with color Doppler and agitated contrast. Aortic Valve: The aortic valve is trileaflet. Systolic excursion of the aortic valve is normal. There is a trace of aortic regurgitation. There is no evidence of aortic stenosis. There is no aortic vegetation present. Mitral Valve: The mitral valve leaflets do not appear thickened. There is moderate mitral regurgitation. lateral/posterior wall jet. The mitral regurgitant jet is eccentric. There is no evidence of mitral stenosis. A mass is visualized on the mitral valve which appears consistent with a vegetation. The vegetation is located on the anterior mitral leaflet, spans both sides, is irregular and measures largest from the 2 chamber view, 1.7 cm x 1.0 cm. Tricuspid Valve: The tricuspid valve leaflets are normal. There is mild to moderate tricuspid regurgitation. There is evidence of mild to moderate pulmonary hypertension. No vegetation is observed on the tricuspid valve. Pulmonic Valve: The pulmonic valve appears normal. There is mild pulmonic regurgitation. No vegetation is observed on the pulmonic valve. Pericardium: There is no significant pericardial effusion. Aorta: The aortic root appears normal. Pulmonary Artery: The main pulmonary artery appears normal. Venous: The inferior vena cava appears normal. The pulmonary veins appear normal. 2 out of 4 well visualized The superior vena cava appears normal. MIKIE Procedures: All standard views were attempted within the limitations of patient tolerance and safety. History and physical as well as labs were reviewed. The patient was in a fasting state. Risks and benefits of the procedure, including alternatives, were discussed and written informed consent was obtained. The patient and/or their health care publications sales representative expressed understanding of the procedure, risks and benefits. Baseline and continuous monitoring of blood pressure, heart rate, pulse oximetry and heart rhythm was performed throughout the procedure. The appropriate time-out procedure was performed as per [facility] protocol. The patient was placed in the left lateral decubitus position. The patient's posterior pharynx was anesthetized with 20ml of 2% viscous lidocaine. The patient received IV Midazolam with a total dose of 4 mg The patient received IV Fentanyl with a total dose of 25 mcg. The patient received IV Lopressor with a total dose of 5 mg. An oral bite block was inserted for protection of oral dentition. The multiplane transesophageal echocardiogram probe was inserted through the posterior oropharynx and advanced into the esophagus without difficulty. Multiple 2D images were obtained of the heart and its related structures. Color flow Doppler was used for evaluation. Spectral Doppler was also used. The atrial septum was interrogated with color flow Doppler. At the conclusion of the procedure the probe was removed with continuous suction without complications. The patient tolerated the procedure with no apparent complications. Contrast: Intravenous agitated saline contrast was used to assess intracardiac shunting. Image 37 Conclusions Mild concentric left ventricular hypertrophy is observed. Global left ventricular wall motion and contractility are within normal limits. The estimated ejection fraction is 55-60%. The right ventricular chamber size and systolic function are within normal limits. The aortic valve is trileaflet. There is no aortic vegetation present. A mass is visualized on the mitral valve which appears consistent with a vegetation. The vegetation is located on the anterior mitral leaflet, spans both sides, is irregular and measures largest from the 2 chamber view, 1.7 cm x 1.0 cm. There is moderate mitral regurgitation. lateral/posterior wall jet. There is mild to moderate tricuspid regurgitation. There is evidence of mild to moderate pulmonary hypertension: 47 mmHg. No vegetation is observed on the tricuspid valve. No vegetation is observed on the pulmonic valve. Compared with transthoracic echo of 08/15/17, mitral valve vegetation newly confirmed, the degree of MR has increased from mild, PA pressure is stable. Measurements Name Value Normal Range Aortic Annulus 2 cm (1.4 - 2.6) Ao root diameter (2D) 2.5 cm (2.1 - 3.5) Ascending Ao 2.6 cm (2.1 - 3.4) Name Value Normal Range TR Vmax 3.3 m/sec - TR peak gradient 44 mmHg - RAP 3 mmHg - RVSP 47 mmHg -
[2017-08-20] MEDS: Cyanocobalamin TAB* 500 MCG PO SCH (19:51)
[2017-08-20] MEDS: Ferrous Sulfate TAB* 325 MG PO SCH (19:51)
[2017-08-20] MEDS: cefTRIAXone(*) 1 GM in NS 0.9% 50 ML* 50 ML IVPB SCH (19:52)
--- NOTE | 2017-08-20 21:43 | CONS ---
CC: Hospitalist; Janes Toledo MD; Manpreet Pugh MD; Dr. Justice; Dr. Toro * CARDIOLOGY CONSULTATION NOTE: DATE OF CONSULTATION: 08/20/17 REASON FOR CONSULTATION: Paroxysmal atrial fibrillation and possible endocarditis. CHIEF COMPLAINT: Shortness of breath. HISTORY OF PRESENT ILLNESS: On admission, 08/14/17, she was admitted for bilateral flank pain. During the admission, from 08/13/17, the patient had abnormal blood cultures with 4/4 bottles growing Strep gallolyticus and her urine growing E. coli. The patient was scheduled for transesophageal echo today to look for vegetations. Earlier this morning, the patient developed atrial fibrillation with a rapid ventricular rate and has a history of this and is being treated with propafenone under Dr. Pugh's care. She was cardioverted after receiving 0.5 mg of digoxin and arrived for her transesophageal echo in sinus rhythm. The patient has some mild shortness of breath. She states that she has been confused this admission, but denied feeling poorly at the time of the study and denied having flank pain, chest pain, or significant shortness of breath. Dr. Toro's note documents the patient has encephalopathy on this admission. PAST MEDICAL HISTORY: The patient has a past medical history of: 1. Nephrolithiasis ([place]). 2. Recurrent urinary tract infections. 3. Coronary artery disease with history of non Q myocardial infarction (follow up nuclear stress, no cath). 4. Hypertension. 5. Paroxysmal AFib, status post ablation ([facility], [facility]). 6. Rheumatoid arthritis. 7. COPD. 8. Dementia. 9. History of skin cancer. 10. Obesity. PAST SURGICAL HISTORY: 1. Total hip arthroplasty. 2. Left total knee replacement. 3. Cholecystectomy. 4. Appendectomy. 5. Tonsillectomy. 6. AFib ablation. 7. Shoulder arthroscopy. 8. x3. 9. Gastric stapling. MEDICATIONS: Current inpatient medications include: 1. Tylenol p.r.n. 2. Hydrocodone and acetaminophen p.r.n. 3. Maalox p.r.n. indigestion. 4. Albuterol nebulizer p.r.n. 5. Ventolin inhaler. 6. Allopurinol 100 mg a day. 7. Eliquis 5 mg b.i.d. 8. Ceftriaxone 1 g q.24 hours. 9. Vitamin B12 1000 mcg daily p.o. 10. Flexeril 10 mg p.r.n. 11. Aricept 10 mg a day. 12. Pepcid 20 mg q.h.s. 13. Iron sulfate 325 mg a day. 14. Lasix 40 mg a day. 15. Dilaudid p.r.n. pain. 16. Prinivil 2.5 mg a day. 17. Magnesium oxide 800 mg a day. 18. Melatonin 3 mg q.h.s. p.r.n. sleep. 19. Methenamine hippurate 1 g b.i.d. 20. Zaroxolyn 2.5 mg q. Friday, . 21. Lopressor 50 mg q.12 hours. 22. Dulera 2 puffs b.i.d. 23. Zofran p.r.n. nausea. 24. Potassium chloride 20 mEq a day. 25. Propafenone 225 mg b.i.d. ALLERGIES: Include PROGESTERONE and OFLOXACIN. 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 Nonsmoker. No recent alcohol use. FAMILY HISTORY: Positive for myocardial infarction in both parents. REVIEW OF SYSTEMS: The patient had difficulty with review of systems because she says she cannot remember a lot of her admission. The patient was unaware when she went back into normal rhythm on this admission. Unable to perform 14- point review of systems other than she denied anorexia, current fevers, chills, sweats, shortness of breath, chest pain, or awareness of palpitations. PHYSICAL EXAMINATION: On exam, the patient is 5 feet, weighs 197 pounds with a BMI of 39. Blood pressure 95/54, pulse was 84 and regular, respiratory rate 20 to 22, temperature 97.8, and T-max during this admission is 99.8. General Appearance: Short, overweight, older woman, appearing a bit older than 67 years , seated at 40 degrees, appears chronically ill, but in no acute distress. Psychologically, pleasant and cooperative, but vague. Neurologically, awake, alert, oriented to person and place. I did not evaluate for time. She knew my name by history. Skin: Warm, dry. No cyanosis and no appreciable [place] lesions. No nodes on her hands or feet. No evidence of splinter hemorrhages. Oral mucosa moist. Neck without appreciable increase in JVP and good carotid pulses without audible bruits. Breath sounds, crackles in the bases and diminished. Breath sounds, effort better in the upper lung lynne. Coronary: S1, S2 regular. Systolic murmur heard in the upper sternal border and apex. Abdomen: Soft, nontender. No hepatospleno-megaly or masses. Lower extremities are free of edema and warmth. LABORATORY DATA/DIAGNOSTIC STUDIES: A 12-lead ECG in the emergency department on arrival, 08/15/17, showed normal sinus rhythm with occasional PVCs, 100 beats a minute, QRS axis +30 with a corrected QT interval of 504 milliseconds. 12-lead ECG this morning shows AFib, rapid ventricular rate, 2 wide complex beats, and corrected QT interval of 427 milliseconds. Blood cultures as above. Chest x-ray from 08/17/17 showed vascular congestion. Transthoracic echo from 08/18/17 showed no clearcut vegetations, but the anterior mitral leaflet showed severe thickening and restriction and prolapse with trace to mild mitral insufficiency, trace tricuspid insufficiency, and mild to moderate elevation in PA pressure with a PA pressure of 46 mmHg. Abdominal ultrasound from 08/18/17 showed Calle catheter with cortical thinning on the right side, normal appearing kidneys bilaterally. There were 2 anechoic avascular cysts noted in the right kidney with cortical thinning. No hydronephrosis. Normal ureteral jets bilaterally. Labs from today, white count 6.9, hemoglobin 8.8, hematocrit 27, platelets 303. INR 1.67. Sodium 134, potassium 3.6, chloride 94, bicarb 35, BUN 10, creatinine 0.78, glucose 111. Magnesium 1.7. Troponin #1 on 08/17/17 was elevated at 0.34, but troponins afterwards are 0.00 raising a possibility of error. IMPRESSION: In summary, Jessica Cotto is a 67-year-old woman admitted with flank pain, somewhat confused and positive blood cultures growing Strep gallolyticus and urine culture positive for E. coli. She underwent transesophageal echo, which showed a large mitral valve vegetation on the anterior leaflets measuring 1.7 x 1 cm, separate report to follow. The patient does have clear evidence of endocarditis with a vegetation on the mitral valve. We will defer to Dr. MacQueen for definitive treatment, but aggressive long-term antibiotics are in order and serial transesophageal echoes to determine if surgical intervention would be needed. The patient's encephalopathy could be from the sepsis alone, but she is at risk for throwing infected vegetations into the [facility] system and I will defer to her other practitioners to see if her vagueness and confusion warrant [facility] imaging. For the paroxysmal atrial fibrillation, on propafenone. In the setting of sepsis, anemia, metabolic derangement, she is at risk for recurrent episodes. Additionally her QT is prolonged on propafenone and on telemetry and ECG she is having bursts of NSVT. For now, we will continue with beta-huseyin and give her more dig for rate control. I feel it would be safest to stop her propafenone and put her on amiodarone, which could be safer short-term and once her acute illnesses improved, we could reevaluate or let her student support services director , Dr. Pugh, reevaluate antiarrhythmics. Optimization of potassium keeping it between 4 and 5 and magnesium trying to keep it around 2 may also decrease her chance of paroxysmal atrial fibrillation and optimization of supportive care for her underlying infection, anemia, and other comorbidities will be important too. Thank you for allowing me to assist in this very nice, but sick woman's care. [id number]/[facility] #: [id number] YEHUDA
[2017-08-20] MEDS: Famotidine TAB* 20 MG PO SCH (21:55)
[2017-08-20] MEDS: Atorvastatin* 20 MG TAB PO SCH (21:55)
[2017-08-21] MEDS: HYDROmorphone INJ* 2 MG/ML CARPUJECT SYRINGE IV SLOW PU PRN (03:05)
[2017-08-21 06:56] LABS: ABS Basophils 0 10^3/ul (0-0.2); ABS Eosinophils 0.1 10^3/ul (0-0.6); ABS Lymphocytes 0.9 10^3/ul (1.0-4.8); ABS Monocytes 0.9 10^3/ul (0-0.8); ABS Neutrophils 5.8 10^3/ul (1.5-7.7); ABS Nucleated RBC 0 10^3/ul; Eosinophil % 1.4 % (0-6); Hematocrit 27 % (35-47); Mean Corpuscular HGB Conc 33 g/dl (31-36); Mean Corpuscular Hemoglobin 28 pg (27-31); Mean Corpuscular Volume 85 fL (80-97); Mean Platelet Volume 7 um3 (7.4-10.4); Nucleated Red Blood Cells % 0; Platelet Count 326 10^3/ul (150-450); Red Blood Count 3.22 10^6/ul (4.0-5.4); Red Cell Distribution Width 17 % (10.5-15); White Blood Count 7.8 10^3/ul (3.5-10.8)
[2017-08-21 07:12] LABS: EGFR Non-African American 77.6 (>60)
[2017-08-21] MEDS ORDERED: Magnesium Sulfate 2 GM IV* 2 GM/50 ML BAG IVPB ONE (08:26)
[2017-08-21] MEDS: Mometasone/Formoter 200/5 MDI INH SCH ×2 (08:32→20:03)
[2017-08-21] MEDS: Donepezil TAB* 5 MG PO SCH (09:11)
[2017-08-21] MEDS: Metoprolol Tartrate TAB* 50 mg PO SCH ×2 (09:11→21:14)
[2017-08-21] MEDS: Magnesium Oxide TAB* 400 MG PO SCH (09:11)
[2017-08-21] MEDS: Ferrous Sulfate TAB* 325 MG PO SCH (09:11)
[2017-08-21] MEDS: Potassium Chlor TAB* 10 MEQ TAB.ER PO SCH (09:11)
[2017-08-21] MEDS: Allopurinol TAB* 100 MG PO SCH (09:11)
[2017-08-21] MEDS: Cyanocobalamin TAB* 500 MCG PO SCH (09:12)
[2017-08-21] MEDS: Apixaban* 5 MG TAB PO SCH ×2 (09:12→21:14)
[2017-08-21] MEDS: Methenamine Hippurate TAB* 1 GM TAB PO SCH ×2 (09:13→21:13)
--- NOTE | 2017-08-21 10:18 | PN ---
Progress Note - Progress Note Date of Service: 08/21/17 SOAP: Subjective: CC: endocarditis HPI: 67 year old woman with MV prolapse and recent fever with change in mental status. MIKIE yesterday which she tolerated well. She has no complaints including fever, rash, or diarrhea. Objective: Vital Signs Temp 36.5 C 08/21/17 08:00 Pulse 80 08/21/17 07:01 Resp 14 08/21/17 08:00 BP 122/61 08/21/17 07:01 Pulse Ox 98 08/21/17 07:01 Intake & Output 08/20/17 08/21/17 08/21/17 18:59 06:59 18:59 Intake Total 0 400 200 Output Total 1250 1600 Balance -1250 -1200 200 Weight 200 lb 2.876 oz Intake: Oral 0 400 200 Output: Calle 1250 1600 Other: # Bowel Movements 0 Gen:awake, no distress HEENT:PERRL, MMM Heart:RRR no murmur Lungs:CTA BL Abd:+BS NTND soft Skin: no rash MSK: no spine tenderness Neuro: CN 2-12 intact, strength 5/5 bi/tri/quad/TA/gastroc BL Laboratory Results - last 24 hr 08/21/17 08/21/17 06:20 06:20 WBC 7.8 RBC 3.22 L Hgb 9.0 L Hct 27 L MCV 85 MCH 28 MCHC 33 RDW 17 H Plt Count 326 MPV 7 L Neut % (Auto) 74.0 Lymph % (Auto) 12.0 L [place] % (Auto) 12.2 H Eos % (Auto) 1.4 Baso % (Auto) 0.4 Absolute Neuts (auto) 5.8 Absolute Lymphs (auto) 0.9 L Absolute Monos (auto) 0.9 H Absolute Eos (auto) 0.1 Absolute Basos (auto) 0 Absolute Nucleated RBC 0 Nucleated RBC % 0 Sodium 137 Potassium 3.7 Chloride 94 L Carbon Dioxide 39 H Anion Gap 4 BUN 11 Creatinine 0.75 Est GFR ( Amer) 99.7 Est GFR (Non-Af Amer) 77.6 BUN/Creatinine Ratio 14.7 Glucose 113 H Calcium 9.0 Magnesium 1.7 L Assessment: 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 encephalopathy, present on admission, due to #1, resolved 3. E.coli pylonephritis 4. obesity 5. Rheumatoid arthritis Plan: 1. PICC today. Ceftriaxone (will incr to 2 gm) IV Q24 hrs day 10/15 w weekly cbc , cmp, crp 35 minutes floor time >50% face to face in counseling regarding endocarditis treatment and follow up
--- NOTE | 2017-08-21 11:54 | PN ---
Subjective Date of Service: 08/21/17 Interval History: pt feels well today. Requests to keep Calle in if we were planning diuretic use. no c/o pain Family History: Unchanged from Admission Social History: Unchanged from Admission Past Medical History: Unchanged from Admission Objective Active Medications: Acetaminophen (Tylenol Tab*) 650 mg PO Q4H PRN PRN Reason: FEVER/PAIN Last Admin: 08/20/17 07:54 Dose: 650 mg Hydrocodone Bitart/Acetaminophen ([place] 5-325 Tab*) 1 tab PO Q6H PRN PRN Reason: PAIN Last Admin: 08/19/17 23:04 Dose: 1 tab Al Hydrox/Mg Hydrox/Simethicone (Maalox Plus*) 30 ml PO Q4H PRN PRN Reason: INDIGESTION Allopurinol (Zyloprim Tab*) 100 mg PO QAM [facility] Last Admin: 08/21/17 09:11 Dose: 100 mg Apixaban (Eliquis*) 5 mg PO BID [facility] Last Admin: 08/21/17 09:12 Dose: 5 mg Atorvastatin Calcium (Lipitor*) 20 mg PO BEDTIME [facility] Last Admin: 08/20/17 21:55 Dose: 20 mg Cyanocobalamin (Vitamin B12 Tab*) 1,000 mcg PO DAILY [facility] Last Admin: 08/21/17 09:12 Dose: 1,000 mcg Cyclobenzaprine HCl (Flexeril Tab*) 10 mg PO BID PRN PRN Reason: SPASMS Last Admin: 08/19/17 20:52 Dose: 10 mg Donepezil HCl (Aricept Tab*) 10 mg PO DAILY [facility] Last Admin: 08/21/17 09:11 Dose: 10 mg Famotidine (Pepcid Tab*) 20 mg PO BEDTIME [facility] PRN Reason: Protocol Last Admin: 08/20/17 21:55 Dose: 20 mg Ferrous Sulfate (Ferrous Sulfate Tab*) 325 mg PO DAILY [facility] Last Admin: 08/21/17 09:11 Dose: 325 mg Heparin Sodium (Porcine) (Heparin Flush Picc/Ml/Cvc(*)) 1 ml FLUSH 0600,1800 VALE PRN Reason: Protocol Hydromorphone HCl (Dilaudid Inj*) 1 mg IV SLOW PU Q4H PRN PRN Reason: PAIN Last Admin: 08/21/17 03:05 Dose: 1 mg Ceftriaxone Sodium 1 gm/ (Sodium Chloride) 50 mls @ 200 mls/hr IVPB Q24H [facility] Last Admin: 08/20/17 19:52 Dose: Not Given Levalbuterol HCl (Xopenex 1.25 Mg/0.5 Ml Neb.Daniela*) 1.25 mg INH Q2H PRN PRN Reason: SOB/WHEEZING Magnesium Oxide (Magox 400 Tab*) 800 mg PO DAILY [facility] Last Admin: 08/21/17 09:11 Dose: 800 mg Melatonin (Melatonin (Nf)) 3 mg PO BEDTIME PRN PRN Reason: SLEEP Last Admin: 08/16/17 20:26 Dose: 3 mg Methenamine Hippurate (Hiprex Tab*) 1 gm PO BID [facility] Last Admin: 08/21/17 09:13 Dose: 1 gm Metoprolol Tartrate (Lopressor Tab*) 50 mg PO Q12HR [facility] Last Admin: 08/21/17 09:11 Dose: 50 mg Mometasone Furoate/Formoterol Fumar (Dulera 200/5 Mdi*) 2 puff INH BID [facility] Last Admin: 08/21/17 08:32 Dose: 2 puff Potassium Chloride (Klor Con Er Tab*) 20 meq PO DAILY [facility] Last Admin: 08/21/17 09:11 Dose: 20 meq Prochlorperazine Edisylate (Compazine Inj*) 2.5 mg IV Q6H PRN PRN Reason: NAUSEA/VOMITING Vital Signs - 8 hr 08/21/17 08/21/17 08/21/17 04:00 05:00 06:00 Temperature 98.6 F Pulse Rate 82 83 86 Respiratory 14 16 15 Rate Blood Pressure 110/52 117/65 145/61 (mmHg) O2 Sat by Pulse 97 97 98 Oximetry 08/21/17 08/21/17 08/21/17 06:49 07:00 07:01 Temperature Pulse Rate 82 80 Respiratory 15 22 14 Rate Blood Pressure 122/61 (mmHg) O2 Sat by Pulse 98 Oximetry 08/21/17 08/21/17 08:00 10:40 Temperature 97.7 F Pulse Rate 79 Respiratory 14 14 Rate Blood Pressure (mmHg) O2 Sat by Pulse 98 Oximetry Oxygen Devices in Use Now: Nasal Cannula Appearance: 67 yo f in nAD, aAOx3 Eyes: No Scleral Icterus, PERRLA Ears/Nose/Mouth/Throat: NL Teeth, Lips, Gums, Mucous Membranes Moist Neck: NL Appearance and Movements; NL JVP, Trachea Midline Respiratory: Symmetrical Chest Expansion and Respiratory Effort, - - crackles at b/l bases Cardiovascular: NL Sounds; No Murmurs; No JVD, RRR Abdominal: NL Sounds; No Tenderness; No Distention, No Hepatosplenomegaly Lymphatic: No Cervical Adenopathy Extremities: No Clubbing, Cyanosis, - - +1 pitting pedal edema L>R Skin: No Nodules or Sclerosis Neurological: Alert and Oriented x 3, NL Muscle Strength and Tone Result Diagrams: 08/21/17 06:20 08/21/17 06:20 Additional Lab and Data: Lab Results Microbiology and Other Data: Microbiology 08/18/17 12:57 Stool Occult Blood (TYLER) - Final Stool Assess/Plan/Problems-Billing Assessment: Patient is a 67yo female with a PMH significant for recurrent UTI, CAD, MT, HTN , RA and COPD who presents with bilateral flank pain and UTI /pyelonephritis - Patient Problems (1) Endocarditis Comment: pt has 1.7 cm vegetation on mitral valve, consistent with Strep gallolyticus endocarditis and will require a total of 28 days of IV ceftriaxone she refuses STR. PICC placed (2) UTI (urinary tract infection) Comment: Pyelonephritis. CVA tenderness resolved. Continue Rocephin foe E. coli positive cx Renal U/S negative for any hydronephrosis or stones. (3) CHF exacerbation Comment: Baseline wt ~190 per patient, today 200. Lasix initially held for acute illness during hospitalization. will tx with one dose of IV Lasix and re-evl in AM. Pt c/o significant leg edema Echo showed EF 60-65%. (4) Anemia Comment: Hgb 11.2 on admitting labs but baseline appears to be closer to 9 and 10 Perhaps element of hemoconcentration secondary to dehydration on admission Stool occult negative according to iron studies pt has normocytic, iron defficiency anemia and anemia of chronic disease. Low iron - started ferrous sulfate s/p 1 unit PRBC on 08/19, given cardiac hx and hypoxia (5) Altered mental status Comment: resolved, Likely due to delirium from UTI. (6) COPD (chronic obstructive pulmonary disease) Comment: No signs of acute exacerbation at this time. Continue home inhalers. at home on -02 at 2L nightly (7) Atrial fibrillation Comment: In Afib with RVR with NSVT noted cpnverted to NSR after digoxin IV on 08/20/17 Cardiology consult appreciated . Propafenone stopped due to prolonged QT. Diltiazem held on 08/20/17 due to low BP and normal rate. will restart today cont BB (8) DVT prophylaxis Comment: Continue Eliquis. Status and Disposition: Patient is admitted inpatient. Transfer to [address] [place] [address].
[2017-08-21] MEDS ORDERED: Furosemide IV* 10 MG/ML 2 ML VIAL (20 MG) IV ONE (12:03)
[2017-08-21] MEDS: Diltiazem CD CAP* 180 MG PO SCH (12:32)
[2017-08-21] MEDS: cefTRIAXone(*) 1 GM in NS 0.9% 50 ML* 50 ML IVPB SCH (15:36)
[2017-08-21] MEDS: Atorvastatin* 20 MG TAB PO SCH (21:14)
[2017-08-21] MEDS: Famotidine TAB* 20 MG PO SCH (21:14)
[2017-08-22 00:20] LABS: Urine Appearance Clear; Urine Blood Negative (Negative); Urine Color Straw; Urine Ketones Negative (Negative); Urine Protein Negative (Negative); Urine Specific Gravity 1.005 (1.010-1.030); Urine Urobilinogen Negative (Negative)
[2017-08-22] MEDS: HYDROmorphone INJ* 2 MG/ML CARPUJECT SYRINGE IV SLOW PU PRN ×2 (02:45→21:33)
[2017-08-22] MEDS: Mometasone/Formoter 200/5 MDI INH SCH ×2 (07:23→19:59)
[2017-08-22 08:30] LABS: EGFR Non-African American 106.4 (>60)
[2017-08-22] MEDS ORDERED: Magnesium Sulf 4 GM/100 ML IV* 4,000 MG/100 ML BAG IVPB ONE (08:36)
--- NOTE | 2017-08-22 09:16 | PN ---
Progress Note - Progress Note Date of Service: 08/22/17 SOAP: Subjective: CC: endocarditis HPI: 67 year old woman with MV prolapse and recent fever with change in mental status; Strep bacteremia. MIKIE showed MV vegetation. Ongoing right flank pain is a little better. She has no complaints including fever, rash, or diarrhea. Objective: Vital Signs Temp 36.9 C 08/22/17 03:43 Pulse 76 08/22/17 07:23 Resp 14 08/22/17 07:23 BP 108/58 08/22/17 03:51 Pulse Ox 92 08/22/17 07:23 Intake & Output 08/21/17 08/22/17 08/22/17 18:59 06:59 18:59 Intake Total 200 400 Output Total 1375 1075 Balance -1175 -195 Intake: Oral 200 400 Output: Calle 1375 1075 Other: Date of Last Bowel unknown Movement Gen:awake, no distress HEENT:PERRL, MMM Heart:RRR no murmur Lungs:CTA BL Abd:+BS NTND soft Skin: no rash MSK: no spine tenderness; no right flank tenderness Laboratory Results - last 24 hr 08/22/17 07:30 Sodium 138 Potassium 3.7 Chloride 92 L BUN 6 Creatinine 0.57 Est GFR ( Amer) 136.9 Est GFR (Non-Af Amer) 106.4 BUN/Creatinine Ratio 10.5 Glucose 102 H Calcium 8.8 Magnesium 1.5 L Assessment: 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 encephalopathy, present on admission, due to #1, resolved 3. E.coli pylonephritis 4. obesity 5. Rheumatoid arthritis Plan: 1. Ceftriaxone2 gmIV Q24 hrs day 11/15 w weekly cbc, cmp, crp; outpatient colonoscopy 35 minutes floor time >50% face to face in counseling regarding endocarditis treatment and home antibiotics plan
[2017-08-22] MEDS: Apixaban* 5 MG TAB PO SCH ×2 (09:45→21:34)
[2017-08-22] MEDS: Potassium Chlor TAB* 10 MEQ TAB.ER PO SCH (09:46)
[2017-08-22] MEDS: Donepezil TAB* 5 MG PO SCH (09:46)
[2017-08-22] MEDS: Allopurinol TAB* 100 MG PO SCH (09:47)
[2017-08-22] MEDS: Metoprolol Tartrate TAB* 50 mg PO SCH ×2 (09:47→21:34)
[2017-08-22] MEDS: Ferrous Sulfate TAB* 325 MG PO SCH (09:47)
[2017-08-22] MEDS: Acetaminophen TAB* 325 MG PO PRN (09:48)
[2017-08-22] MEDS: Methenamine Hippurate TAB* 1 GM TAB PO SCH ×2 (09:50→21:34)
[2017-08-22] MEDS: Cyanocobalamin TAB* 500 MCG PO SCH (09:50)
[2017-08-22] MEDS: Cyclobenzaprine TAB* 10 MG PO PRN (09:50)
[2017-08-22] MEDS: Diltiazem CD CAP* 180 MG PO SCH (09:51)
[2017-08-22] MEDS: Magnesium Oxide TAB* 400 MG PO SCH ×2 (10:00→21:33)
[2017-08-22] MEDS: cefTRIAXone(*) 2 GM in NS 0.9% 100 ML* 100 ML IVPB SCH (10:40)
--- NOTE | 2017-08-22 16:37 | PN ---
Subjective Date of Service: 08/22/17 Interval History: pt feels tired, no new complaints. did well with PT Family History: Unchanged from Admission Social History: Unchanged from Admission Past Medical History: Unchanged from Admission Objective Active Medications: Acetaminophen (Tylenol Tab*) 650 mg PO Q4H PRN PRN Reason: FEVER/PAIN Last Admin: 08/22/17 09:48 Dose: 650 mg Hydrocodone Bitart/Acetaminophen ([place] 5-325 Tab*) 1 tab PO Q6H PRN PRN Reason: PAIN Last Admin: 08/19/17 23:04 Dose: 1 tab Al Hydrox/Mg Hydrox/Simethicone (Maalox Plus*) 30 ml PO Q4H PRN PRN Reason: INDIGESTION Allopurinol (Zyloprim Tab*) 100 mg PO QAM [facility] Last Admin: 08/22/17 09:47 Dose: 100 mg Apixaban (Eliquis*) 5 mg PO BID [facility] Last Admin: 08/22/17 09:45 Dose: 5 mg Atorvastatin Calcium (Lipitor*) 20 mg PO BEDTIME [facility] Last Admin: 08/21/17 21:14 Dose: 20 mg Cyanocobalamin (Vitamin B12 Tab*) 1,000 mcg PO DAILY [facility] Last Admin: 08/22/17 09:50 Dose: 1,000 mcg Cyclobenzaprine HCl (Flexeril Tab*) 10 mg PO BID PRN PRN Reason: SPASMS Last Admin: 08/22/17 09:50 Dose: 10 mg Diltiazem HCl (Cardizem Cd Cap*) 180 mg PO DAILY [facility] Last Admin: 08/22/17 09:51 Dose: 180 mg Donepezil HCl (Aricept Tab*) 10 mg PO DAILY [facility] Last Admin: 08/22/17 09:46 Dose: 10 mg Famotidine (Pepcid Tab*) 20 mg PO BEDTIME [facility] PRN Reason: Protocol Last Admin: 08/21/17 21:14 Dose: 20 mg Ferrous Sulfate (Ferrous Sulfate Tab*) 325 mg PO DAILY [facility] Last Admin: 08/22/17 09:47 Dose: 325 mg Heparin Sodium (Porcine) (Heparin Flush Picc/Ml/Cvc(*)) 1 ml FLUSH 0600,1800 [facility] PRN Reason: Protocol Last Admin: 08/22/17 07:41 Dose: 2 ml Hydromorphone HCl (Dilaudid Inj*) 1 mg IV SLOW PU Q4H PRN PRN Reason: PAIN Last Admin: 08/22/17 02:45 Dose: 1 mg Ceftriaxone Sodium 2 gm/ (Sodium Chloride) 100 mls @ 200 mls/hr IVPB Q24H [facility] Last Admin: 08/22/17 10:40 Dose: 200 mls/hr Levalbuterol HCl (Xopenex 1.25 Mg/0.5 Ml Neb.Daniela*) 1.25 mg INH Q2H PRN PRN Reason: SOB/WHEEZING Magnesium Oxide (Magox 400 Tab*) 800 mg PO BID [facility] Last Admin: 08/22/17 10:00 Dose: 800 mg Melatonin (Melatonin (Nf)) 3 mg PO BEDTIME PRN PRN Reason: SLEEP Last Admin: 08/16/17 20:26 Dose: 3 mg Methenamine Hippurate (Hiprex Tab*) 1 gm PO BID [facility] Last Admin: 08/22/17 09:50 Dose: 1 gm Metoprolol Tartrate (Lopressor Tab*) 50 mg PO Q12HR [facility] Last Admin: 08/22/17 09:47 Dose: 50 mg Mometasone Furoate/Formoterol Fumar (Dulera 200/5 Mdi*) 2 puff INH BID [facility] Last Admin: 08/22/17 07:23 Dose: 2 puff Potassium Chloride (Klor Con Er Tab*) 20 meq PO DAILY [facility] Last Admin: 08/22/17 09:46 Dose: 20 meq Prochlorperazine Edisylate (Compazine Inj*) 2.5 mg IV Q6H PRN PRN Reason: NAUSEA/VOMITING Vital Signs - 8 hr 08/22/17 08/22/17 08/22/17 09:50 13:11 13:52 Temperature 97.9 F Pulse Rate 66 Respiratory 18 18 16 Rate Blood Pressure 99/49 (mmHg) O2 Sat by Pulse 98 Oximetry Oxygen Devices in Use Now: Nasal Cannula Appearance: 67 yo f in nAD, aAOx3, poor short term memory Eyes: No Scleral Icterus, PERRLA Ears/Nose/Mouth/Throat: NL Teeth, Lips, Gums, Mucous Membranes Moist Neck: NL Appearance and Movements; NL JVP, Trachea Midline Respiratory: Symmetrical Chest Expansion and Respiratory Effort, Clear to Auscultation Cardiovascular: NL Sounds; No Murmurs; No JVD, RRR Abdominal: NL Sounds; No Tenderness; No Distention Lymphatic: No Cervical Adenopathy Extremities: No Clubbing, Cyanosis, - - trace b/l pedal edema Skin: No Nodules or Sclerosis Neurological: Alert and Oriented x 3, NL Muscle Strength and Tone Result Diagrams: 08/21/17 06:20 08/22/17 07:30 Additional Lab and Data: Lab Results Microbiology and Other Data: Microbiology 08/18/17 12:57 Stool Occult Blood (TYLER) - Final Stool Assess/Plan/Problems-Billing Assessment: Patient is a 67yo female with a PMH significant for recurrent UTI, CAD, RI, HTN , RA and COPD who presents with bilateral flank pain and UTI /pyelonephritis - Patient Problems (1) Endocarditis Comment: pt has 1.7 cm vegetation on mitral valve, consistent with Strep gallolyticus endocarditis and will require a total of 28 days of IV ceftriaxone she refuses STR. PICC placed. Plan to d/c tomorrow after Ceftriaxone dose and cont home infusions (2) UTI (urinary tract infection) Comment: Pyelonephritis. CVA tenderness resolved. Continue Rocephin foe E. coli positive cx Renal U/S negative for any hydronephrosis or stones. (3) CHF exacerbation Comment: Baseline wt ~190 per patient,sill continues to be 200lbs despite diuretic. High CO2 indicates contraction alkalosis. Hold diuresis Echo showed EF 60-65%. (4) Anemia Comment: Hgb 11.2 on admitting labs but baseline appears to be closer to 9 and 10 Perhaps element of hemoconcentration secondary to dehydration on admission Stool occult negative according to iron studies pt has normocytic, iron defficiency anemia and anemia of chronic disease. Low iron - started ferrous sulfate s/p 1 unit PRBC on 08/19, given cardiac hx and hypoxia (5) Altered mental status Comment: resolved, Likely due to delirium from UTI. (6) COPD (chronic obstructive pulmonary disease) Comment: No signs of acute exacerbation at this time. Continue home inhalers. at home on -02 at 2L nightly (7) Atrial fibrillation Comment: Afib with RVR with NSVT noted on 08/20/17 converted to NSR after digoxin IV on 08/20/17 Cardiology consult appreciated . Propafenone stopped due to prolonged QT. cont BB, cont cardizem. Continues to be in NSR (8) Hypomagnesemia Comment: IV/PO repletion (9) DVT prophylaxis Comment: Continue Eliquis. Status and Disposition: Patient is admitted inpatient. Transfer to [address] [place] [address].
[2017-08-22] MEDS: CMCS Melatonin (NF) 3 MG TAB PO PRN (21:34)
[2017-08-22] MEDS: Atorvastatin* 20 MG TAB PO SCH (21:34)
[2017-08-22] MEDS: Famotidine TAB* 20 MG PO SCH (21:34)
[2017-08-23] MEDS: HYDROmorphone INJ* 2 MG/ML CARPUJECT SYRINGE IV SLOW PU PRN (03:52)
[2017-08-23 06:36] LABS: EGFR Non-African American 102.3 (>60)
[2017-08-23] MEDS: Mometasone/Formoter 200/5 MDI INH SCH ×2 (07:29→20:29)
[2017-08-23] MEDS: Ferrous Sulfate TAB* 325 MG PO SCH (08:17)
[2017-08-23] MEDS: Metoprolol Tartrate TAB* 50 mg PO SCH ×2 (08:17→20:17)
[2017-08-23] MEDS: Donepezil TAB* 5 MG PO SCH (08:17)
[2017-08-23] MEDS: Apixaban* 5 MG TAB PO SCH ×2 (08:17→20:17)
[2017-08-23] MEDS: Allopurinol TAB* 100 MG PO SCH (08:18)
[2017-08-23] MEDS: Diltiazem CD CAP* 180 MG PO SCH (08:18)
[2017-08-23] MEDS: Potassium Chlor TAB* 10 MEQ TAB.ER PO SCH (08:18)
[2017-08-23] MEDS: Methenamine Hippurate TAB* 1 GM TAB PO SCH ×2 (08:18→20:17)
[2017-08-23] MEDS: Magnesium Oxide TAB* 400 MG PO SCH ×2 (08:18→20:17)
[2017-08-23] MEDS: Cyanocobalamin TAB* 500 MCG PO SCH (08:18)
[2017-08-23] MEDS ORDERED: Digoxin IV* 0.5 MG/2 ML AMP (0.25 MG/ML) IV SLOW PU ONE (08:19)
[2017-08-23] MEDS: HYDROcodone/ACETAMIN 5-325 MG* 1 TAB PO PRN ×2 (08:19→20:18)
[2017-08-23] MEDS: cefTRIAXone(*) 2 GM in NS 0.9% 100 ML* 100 ML IVPB SCH (10:03)
--- NOTE | 2017-08-23 11:25 | PN ---
Subjective Date of Service: 08/23/17 Interval History: Pt got in rapid a. fib today, now rate controlled at 89 BPM after a dose of IV Digoxin Family History: Unchanged from Admission Social History: Unchanged from Admission Past Medical History: Unchanged from Admission Objective Active Medications: Acetaminophen (Tylenol Tab*) 650 mg PO Q4H PRN PRN Reason: FEVER/PAIN Last Admin: 08/22/17 09:48 Dose: 650 mg Hydrocodone Bitart/Acetaminophen ([place] 5-325 Tab*) 1 tab PO Q6H PRN PRN Reason: PAIN Last Admin: 08/23/17 08:19 Dose: 1 tab Al Hydrox/Mg Hydrox/Simethicone (Maalox Plus*) 30 ml PO Q4H PRN PRN Reason: INDIGESTION Allopurinol (Zyloprim Tab*) 100 mg PO QAM [facility] Last Admin: 08/23/17 08:18 Dose: 100 mg Apixaban (Eliquis*) 5 mg PO BID [facility] Last Admin: 08/23/17 08:17 Dose: 5 mg Atorvastatin Calcium (Lipitor*) 20 mg PO BEDTIME [facility] Last Admin: 08/22/17 21:34 Dose: 20 mg Cyanocobalamin (Vitamin B12 Tab*) 1,000 mcg PO DAILY [facility] Last Admin: 08/23/17 08:18 Dose: 1,000 mcg Cyclobenzaprine HCl (Flexeril Tab*) 10 mg PO BID PRN PRN Reason: SPASMS Last Admin: 08/22/17 09:50 Dose: 10 mg Digoxin (Lanoxin Tab*) 0.125 mg PO 1700 [facility] Diltiazem HCl (Cardizem Cd Cap*) 180 mg PO DAILY [facility] Last Admin: 08/23/17 08:18 Dose: 180 mg Donepezil HCl (Aricept Tab*) 10 mg PO DAILY [facility] Last Admin: 08/23/17 08:17 Dose: 10 mg Famotidine (Pepcid Tab*) 20 mg PO BEDTIME [facility] PRN Reason: Protocol Last Admin: 08/22/17 21:34 Dose: 20 mg Ferrous Sulfate (Ferrous Sulfate Tab*) 325 mg PO DAILY [facility] Last Admin: 08/23/17 08:17 Dose: 325 mg Heparin Sodium (Porcine) (Heparin Flush Picc/Ml/Cvc(*)) 1 ml FLUSH 0600,1800 [facility] PRN Reason: Protocol Last Admin: 08/23/17 06:01 Dose: 2 ml Ceftriaxone Sodium 2 gm/ (Sodium Chloride) 100 mls @ 200 mls/hr IVPB Q24H [facility] Last Admin: 08/23/17 10:03 Dose: 200 mls/hr Levalbuterol HCl (Xopenex 1.25 Mg/0.5 Ml Neb.Daniela*) 1.25 mg INH Q2H PRN PRN Reason: SOB/WHEEZING Magnesium Oxide (Magox 400 Tab*) 800 mg PO BID [facility] Last Admin: 08/23/17 08:18 Dose: 800 mg Melatonin (Melatonin (Nf)) 3 mg PO BEDTIME PRN PRN Reason: SLEEP Last Admin: 08/22/17 21:34 Dose: 3 mg Methenamine Hippurate (Hiprex Tab*) 1 gm PO BID [facility] Last Admin: 08/23/17 08:18 Dose: 1 gm Metoprolol Tartrate (Lopressor Tab*) 50 mg PO Q12HR [facility] Last Admin: 08/23/17 08:17 Dose: 50 mg Mometasone Furoate/Formoterol Fumar (Dulera 200/5 Mdi*) 2 puff INH BID [facility] Last Admin: 08/23/17 07:29 Dose: 2 puff Potassium Chloride (Klor Con Er Tab*) 20 meq PO DAILY [facility] Last Admin: 08/23/17 08:18 Dose: 20 meq Prochlorperazine Edisylate (Compazine Inj*) 2.5 mg IV Q6H PRN PRN Reason: NAUSEA/VOMITING Vital Signs - 8 hr 08/23/17 08/23/17 08/23/17 03:43 03:52 05:42 Temperature 98.3 F Pulse Rate 79 Respiratory 20 16 16 Rate Blood Pressure 98/58 (mmHg) O2 Sat by Pulse 94 Oximetry 08/23/17 08/23/17 08/23/17 07:30 07:56 08:00 Temperature 97.9 F Pulse Rate 146 Respiratory 18 18 Rate Blood Pressure 125/49 (mmHg) O2 Sat by Pulse 98 96 Oximetry 08/23/17 08/23/17 08/23/17 08:19 08:41 10:22 Temperature Pulse Rate 140 Respiratory 18 18 Rate Blood Pressure (mmHg) O2 Sat by Pulse Oximetry Oxygen Devices in Use Now: Nasal Cannula Appearance: 67 yo f in nAD, AAOx2, forgetful Eyes: No Scleral Icterus, PERRLA Ears/Nose/Mouth/Throat: NL Teeth, Lips, Gums, Mucous Membranes Moist Neck: NL Appearance and Movements; NL JVP, Trachea Midline Respiratory: Symmetrical Chest Expansion and Respiratory Effort, - - crackles at b/l bases Cardiovascular: - - irregular Abdominal: NL Sounds; No Tenderness; No Distention, No Hepatosplenomegaly Lymphatic: No Cervical Adenopathy Extremities: No Clubbing, Cyanosis, - - +1 nonpitting pedal edema b/l Skin: No Rash or Ulcers, No Nodules or Sclerosis Neurological: NL Muscle Strength and Tone Result Diagrams: 08/21/17 06:20 08/23/17 06:09 Additional Lab and Data: Lab Results Microbiology and Other Data: Microbiology 08/18/17 12:57 Stool Occult Blood (TYLER) - Final Stool Assess/Plan/Problems-Billing Assessment: Patient is a 67yo female with a PMH significant for recurrent UTI, CAD, ID, HTN , RA and COPD who presents with bilateral flank pain and UTI /pyelonephritis - Patient Problems (1) Atrial fibrillation Comment: Afib with RVR with NSVT noted on 08/20/17, recurred today. Tx with a dose of IV digoxin . now rate controlled. Awaiting cardiology's suggestions. Started on PO digoxin daily Cardiology consult appreciated . Propafenone stopped due to prolonged QT. cont BB, cont cardizem. (2) Endocarditis Comment: pt has 1.7 cm vegetation on mitral valve, consistent with Strep gallolyticus endocarditis and will require a total of 28 days of IV ceftriaxone she refuses STR. PICC placed. Plan to d/c home and cont home infusions once medically stable (3) UTI (urinary tract infection) Comment: Pyelonephritis. CVA tenderness resolved. Continue Rocephin foe E. coli positive cx Renal U/S negative for any hydronephrosis or stones. (4) CHF exacerbation Comment: Baseline wt ~190 per patient,sill continues to be 200lbs despite diuretic. High CO2 indicates contraction alkalosis. Hold diuresis Echo showed EF 60-65%. (5) Anemia Comment: Hgb 11.2 on admitting labs but baseline appears to be closer to 9 and 10 Perhaps element of hemoconcentration secondary to dehydration on admission Stool occult negative according to iron studies pt has normocytic, iron defficiency anemia and anemia of chronic disease. Low iron - started ferrous sulfate s/p 1 unit PRBC on 08/19, given cardiac hx and hypoxia (6) Altered mental status Comment: resolved, Likely due to delirium from UTI. (7) COPD (chronic obstructive pulmonary disease) Comment: No signs of acute exacerbation at this time. Continue home inhalers. at home on -02 at 2L nightly (8) Hypomagnesemia Comment: IV/PO repletion (9) DVT prophylaxis Comment: Continue Eliquis. Status and Disposition: inpatient
[2017-08-23] MEDS ORDERED: Digoxin TAB* 0.125 MG PO SCH (17:00)
[2017-08-23] MEDS: Atorvastatin* 20 MG TAB PO SCH (20:17)
[2017-08-23] MEDS: Famotidine TAB* 20 MG PO SCH (20:17)
[2017-08-23] MEDS: CMCS Melatonin (NF) 3 MG TAB PO PRN (20:17)
[2017-08-23] MEDS: Amiodarone TAB* 200 MG PO SCH (20:18)
[2017-08-24] MEDS: Cyclobenzaprine TAB* 10 MG PO PRN (00:39)
[2017-08-24] MEDS: Acetaminophen TAB* 325 MG PO PRN (00:40)
[2017-08-24 05:27] LABS: ABS Basophils 0 10^3/ul (0-0.2); ABS Eosinophils 0.1 10^3/ul (0-0.6); ABS Lymphocytes 0.9 10^3/ul (1.0-4.8); ABS Monocytes 0.7 10^3/ul (0-0.8); ABS Neutrophils 3.1 10^3/ul (1.5-7.7); ABS Nucleated RBC 0 10^3/ul; Eosinophil % 2.4 % (0-6); Hematocrit 28 % (35-47); Lymphocyte % 19.4 % (25-47); Mean Corpuscular HGB Conc 32 g/dl (31-36); Mean Corpuscular Hemoglobin 28 pg (27-31); Mean Corpuscular Volume 86 fL (80-97); Mean Platelet Volume 7 um3 (7.4-10.4); Nucleated Red Blood Cells % 0.1; Platelet Count 262 10^3/ul (150-450); Red Blood Count 3.27 10^6/ul (4.0-5.4); Red Cell Distribution Width 16 % (10.5-15); White Blood Count 4.9 10^3/ul (3.5-10.8)
[2017-08-24 05:45] LABS: EGFR Non-African American 108.6 (>60)
[2017-08-24] MEDS: Mometasone/Formoter 200/5 MDI INH SCH ×2 (07:47→21:19)
[2017-08-24] MEDS: Methenamine Hippurate TAB* 1 GM TAB PO SCH ×2 (08:23→21:23)
[2017-08-24] MEDS: Potassium Chlor TAB* 10 MEQ TAB.ER PO SCH (08:23)
[2017-08-24] MEDS: Donepezil TAB* 5 MG PO SCH (08:23)
[2017-08-24] MEDS: Ferrous Sulfate TAB* 325 MG PO SCH (08:23)
[2017-08-24] MEDS: Cyanocobalamin TAB* 500 MCG PO SCH (08:23)
[2017-08-24] MEDS: Apixaban* 5 MG TAB PO SCH ×2 (08:23→21:24)
[2017-08-24] MEDS: Diltiazem CD CAP* 180 MG PO SCH (08:23)
[2017-08-24] MEDS: Amiodarone TAB* 200 MG PO SCH ×2 (08:23→21:23)
[2017-08-24] MEDS: Metoprolol Tartrate TAB* 50 mg PO SCH ×2 (08:23→21:24)
[2017-08-24] MEDS: Magnesium Oxide TAB* 400 MG PO SCH ×2 (08:23→21:24)
[2017-08-24] MEDS: Allopurinol TAB* 100 MG PO SCH (08:23)
[2017-08-24] MEDS ORDERED: Magnesium Sulfate IV* 3 GM in NS 0.9% 100 ML* 100 ML IVPB ONE (08:46)
[2017-08-24] MEDS ORDERED: Magnesium Sulfate 2 GM IV IVPB ONE (09:00)
[2017-08-24] MEDS: HYDROcodone/ACETAMIN 5-325 MG* 1 TAB PO PRN ×2 (09:22→21:23)
[2017-08-24] MEDS ORDERED: Magnesium Sulfate 1 GM IV* 1 GM/100 ML BAG IV ONE (10:00)
[2017-08-24] MEDS: cefTRIAXone(*) 2 GM in NS 0.9% 100 ML* 100 ML IVPB SCH (10:55)
--- NOTE | 2017-08-24 14:21 | PN ---
Subjective Date of Service: 08/24/17 Interval History: pt continues to feels weak, but insists on going home an not to STR. Despite that still feels too weak to go home Family History: Unchanged from Admission Social History: Unchanged from Admission Past Medical History: Unchanged from Admission Objective Active Medications: Acetaminophen (Tylenol Tab*) 650 mg PO Q4H PRN PRN Reason: FEVER/PAIN Last Admin: 08/24/17 00:40 Dose: 650 mg Hydrocodone Bitart/Acetaminophen ([place] 5-325 Tab*) 1 tab PO Q6H PRN PRN Reason: PAIN Last Admin: 08/24/17 09:22 Dose: 1 tab Al Hydrox/Mg Hydrox/Simethicone (Maalox Plus*) 30 ml PO Q4H PRN PRN Reason: INDIGESTION Allopurinol (Zyloprim Tab*) 100 mg PO QAM [facility] Last Admin: 08/24/17 08:23 Dose: 100 mg Amiodarone HCl (Cordarone Tab*) 200 mg PO BID [facility] Last Admin: 08/24/17 08:23 Dose: 200 mg Apixaban (Eliquis*) 5 mg PO BID [facility] Last Admin: 08/24/17 08:23 Dose: 5 mg Atorvastatin Calcium (Lipitor*) 20 mg PO BEDTIME [facility] Last Admin: 08/23/17 20:17 Dose: 20 mg Cyanocobalamin (Vitamin B12 Tab*) 1,000 mcg PO DAILY [facility] Last Admin: 08/24/17 08:23 Dose: 1,000 mcg Cyclobenzaprine HCl (Flexeril Tab*) 10 mg PO BID PRN PRN Reason: SPASMS Last Admin: 08/24/17 00:39 Dose: 10 mg Diltiazem HCl (Cardizem Cd Cap*) 180 mg PO DAILY [facility] Last Admin: 08/24/17 08:23 Dose: 180 mg Donepezil HCl (Aricept Tab*) 10 mg PO DAILY [facility] Last Admin: 08/24/17 08:23 Dose: 10 mg Famotidine (Pepcid Tab*) 20 mg PO BEDTIME [facility] PRN Reason: Protocol Last Admin: 08/23/17 20:17 Dose: 20 mg Ferrous Sulfate (Ferrous Sulfate Tab*) 325 mg PO DAILY [facility] Last Admin: 08/24/17 08:23 Dose: 325 mg Heparin Sodium (Porcine) (Heparin Flush Picc/Ml/Cvc(*)) 1 ml FLUSH 0600,1800 [facility] PRN Reason: Protocol Last Admin: 08/24/17 13:02 Dose: 1 ml Ceftriaxone Sodium 2 gm/ (Sodium Chloride) 100 mls @ 200 mls/hr IVPB Q24H [facility] Last Admin: 08/24/17 10:55 Dose: 200 mls/hr Levalbuterol HCl (Xopenex 1.25 Mg/0.5 Ml Neb.Daniela*) 1.25 mg INH Q2H PRN PRN Reason: SOB/WHEEZING Magnesium Oxide (Magox 400 Tab*) 800 mg PO BID [facility] Last Admin: 08/24/17 08:23 Dose: 800 mg Melatonin (Melatonin (Nf)) 3 mg PO BEDTIME PRN PRN Reason: SLEEP Last Admin: 08/23/17 20:17 Dose: 3 mg Methenamine Hippurate (Hiprex Tab*) 1 gm PO BID [facility] Last Admin: 08/24/17 08:23 Dose: 1 gm Metoprolol Tartrate (Lopressor Tab*) 50 mg PO Q12HR [facility] Last Admin: 08/24/17 08:23 Dose: 50 mg Mometasone Furoate/Formoterol Fumar (Dulera 200/5 Mdi*) 2 puff INH BID [facility] Last Admin: 08/24/17 07:47 Dose: 2 puff Potassium Chloride (Klor Con Er Tab*) 20 meq PO DAILY [facility] Last Admin: 08/24/17 08:23 Dose: 20 meq Prochlorperazine Edisylate (Compazine Inj*) 2.5 mg IV Q6H PRN PRN Reason: NAUSEA/VOMITING Vital Signs - 8 hr 08/24/17 08/24/17 08/24/17 07:40 07:44 07:48 Temperature 97.8 F Pulse Rate 83 82 Respiratory 20 20 16 Rate Blood Pressure 111/49 (mmHg) O2 Sat by Pulse 93 90 Oximetry 08/24/17 08/24/17 08/24/17 09:22 11:05 12:18 Temperature 98.1 F Pulse Rate 78 Respiratory 20 18 20 Rate Blood Pressure 115/53 (mmHg) O2 Sat by Pulse 98 Oximetry Oxygen Devices in Use Now: Nasal Cannula Appearance: 67 yo F in NAD, AAox2, very forgetful Eyes: No Scleral Icterus, PERRLA Ears/Nose/Mouth/Throat: NL Teeth, Lips, Gums, Mucous Membranes Moist Neck: NL Appearance and Movements; NL JVP, Trachea Midline Respiratory: Symmetrical Chest Expansion and Respiratory Effort, Clear to Auscultation Cardiovascular: NL Sounds; No Murmurs; No JVD, RRR Abdominal: NL Sounds; No Tenderness; No Distention Lymphatic: No Cervical Adenopathy Extremities: No Clubbing, Cyanosis, - - +1 pedal edema b/l Skin: No Nodules or Sclerosis Neurological: NL Muscle Strength and Tone Result Diagrams: 08/24/17 05:06 08/24/17 05:06 Additional Lab and Data: Lab Results Microbiology and Other Data: Microbiology 08/18/17 12:57 Stool Occult Blood (TYLER) - Final Stool Assess/Plan/Problems-Billing Assessment: Patient is a 67yo female with a PMH significant for recurrent UTI, CAD, ID, HTN , RA and COPD who presents with bilateral flank pain and UTI /pyelonephritis - Patient Problems (1) Atrial fibrillation Comment: Afib with RVR with NSVT noted on 08/20/17, recurred on 08/23/17 and amiodarone started. (converted after a dose of IV digoxin) . now in NSR. Cardiology consult appreciated . Propafenone stopped due to prolonged QT. cont BB, cont cardizem, amiodarone (2) Endocarditis Comment: pt has 1.7 cm vegetation on mitral valve, consistent with Strep gallolyticus endocarditis and will require a total of 28 days of IV ceftriaxone she refuses STR. PICC placed. Plan to d/c home and cont home infusions once medically stable (3) UTI (urinary tract infection) Comment: Pyelonephritis. CVA tenderness resolved. Continue Rocephin foe E. coli positive cx Renal U/S negative for any hydronephrosis or stones. (4) CHF exacerbation Comment: Baseline wt ~190 per patient,sill continues to be 200lbs despite diuretic. High CO2 indicates contraction alkalosis. will restart home Lasix today Echo showed EF 60-65%. (5) Anemia Comment: Hgb 11.2 on admitting labs but baseline appears to be closer to 9 and 10 Perhaps element of hemoconcentration secondary to dehydration on admission Stool occult negative according to iron studies pt has normocytic, iron defficiency anemia and anemia of chronic disease. Low iron - started ferrous sulfate s/p 1 unit PRBC on 08/19, given cardiac hx and hypoxia (6) Altered mental status Comment: resolved, Likely due to delirium from UTI. Pt still very forgetful which may be her baseline (7) COPD (chronic obstructive pulmonary disease) Comment: No signs of acute exacerbation at this time. Continue home inhalers. at home on -02 at 2L nightly (8) Hypomagnesemia Comment: IV/PO repletion (9) DVT prophylaxis Comment: Continue Eliquis. Status and Disposition: inpatient. Pt refuses to go to [facility], but is very weak. could go home in AM, but will request another PT/OT eval prior to discharge. home infusion for Caftriaxone arranged
[2017-08-24] MEDS: CMCS Melatonin (NF) 3 MG TAB PO PRN (21:23)
[2017-08-24] MEDS: Famotidine TAB* 20 MG PO SCH (21:23)
[2017-08-24] MEDS: Atorvastatin* 20 MG TAB PO SCH (21:24)
[2017-08-25] MEDS: HYDROcodone/ACETAMIN 5-325 MG* 1 TAB PO PRN ×2 (03:48→15:05)
[2017-08-25 06:06] LABS: EGFR Non-African American 93.1 (>60)
[2017-08-25] MEDS ORDERED: Furosemide TAB* 40 MG PO SCH (09:00)
[2017-08-25] MEDS: Amiodarone TAB* 200 MG PO SCH (09:03)
[2017-08-25] MEDS: Magnesium Oxide TAB* 400 MG PO SCH (09:03)
[2017-08-25] MEDS: Cyanocobalamin TAB* 500 MCG PO SCH (09:03)
[2017-08-25] MEDS: Methenamine Hippurate TAB* 1 GM TAB PO SCH (09:03)
[2017-08-25] MEDS: Apixaban* 5 MG TAB PO SCH (09:04)
[2017-08-25] MEDS: Potassium Chlor TAB* 10 MEQ TAB.ER PO SCH (09:04)
[2017-08-25] MEDS: Metoprolol Tartrate TAB* 50 mg PO SCH (09:04)
[2017-08-25] MEDS: Allopurinol TAB* 100 MG PO SCH (09:04)
[2017-08-25] MEDS: Ferrous Sulfate TAB* 325 MG PO SCH (09:04)
[2017-08-25] MEDS: Diltiazem CD CAP* 180 MG PO SCH (09:04)
[2017-08-25] MEDS: cefTRIAXone(*) 2 GM in NS 0.9% 100 ML* 100 ML IVPB SCH (09:04)
[2017-08-25] MEDS: Donepezil TAB* 5 MG PO SCH (09:04)
[2017-08-25] MEDS: Mometasone/Formoter 200/5 MDI INH SCH (09:17)
--- NOTE | 2017-08-25 09:41 | PN ---
Progress Note - Progress Note Date of Service: 08/25/17 SOAP: Subjective: CC: endocarditis HPI: 67 year old woman with MV prolapse and recent fever with change in mental status; Strep bacteremia. MIKIE showed MV vegetation. Flank pain nearly gone. No fever, rash, or diarrhea. Objective: Vital Signs Temp 36.7 C 08/25/17 08:09 Pulse 88 08/25/17 09:20 Resp 14 08/25/17 09:20 BP 141/69 08/25/17 08:09 Pulse Ox 92 08/25/17 09:20 Intake & Output 08/24/17 08/25/17 08/25/17 18:59 06:59 18:59 Intake Total 1267 Output Total 550 Balance 1267 -550 Intake: IV Fluids 197 ABX - CEFTRIAXONE 100 Magnesium 1g 47 Mg Sulfate 2g 50 IVPB 110 ABX - CEFTRIAXONE 10 Magnesium 1g 100 Oral 960 Output: Urine 550 Other: # Bowel Movements 0 Gen:awake, no distress HEENT:PERRL, MMM Heart:RRR no murmur Lungs:CTA BL Abd:+BS NTND soft Skin: no rash MSK: no spine tenderness; no right flank tenderness Laboratory Results - last 24 hr 08/25/17 05:29 Sodium 135 Potassium 4.4 Chloride 96 L Carbon Dioxide 39 H BUN 10 Creatinine 0.64 Est GFR ( Amer) 119.8 Est GFR (Non-Af Amer) 93.1 BUN/Creatinine Ratio 15.6 Glucose 104 H Calcium 8.9 Magnesium 1.9 Assessment: 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 encephalopathy, present on admission, due to #1, resolved 3. E.coli pylonephritis 4. obesity 5. Rheumatoid arthritis Plan: 1. Ceftriaxone2 gmIV Q24 hrs day 06/17 w weekly cbc, cmp, crp; fu MIKIE at end of antibiotics; outpatient colonoscopy 35 minutes floor time >50% face to face coordinating home antibiotics and nursing.
[2017-08-25 17:51] VITALS: BP 114/41
--- NOTE | 2017-08-25 19:19 | PN ---
Subjective Date of Service: 08/25/17 Interval History: c/o weakness, is able to ambulate to the bathroom and around in the room without difficulty. Denies chest pain or shortness of breath, Denies abd pain or N/V/D Family History: Unchanged from Admission Social History: Unchanged from Admission Past Medical History: Unchanged from Admission Objective Vital Signs - 8 hr 08/25/17 08/25/17 08/25/17 15:05 15:54 16:07 Temperature 98.1 F Pulse Rate 85 Respiratory 22 16 Rate Blood Pressure 114/41 (mmHg) O2 Sat by Pulse 99 Oximetry Oxygen Devices in Use Now: None Appearance: appears comfortable resting in bed Eyes: No Scleral Icterus Ears/Nose/Mouth/Throat: Clear Oropharnyx, Mucous Membranes Moist Neck: NL Appearance and Movements; NL JVP, Trachea Midline Respiratory: Symmetrical Chest Expansion and Respiratory Effort, Clear to Auscultation Cardiovascular: NL Sounds; No Murmurs; No JVD, - - mild edema to lower legs +1 pitting Abdominal: NL Sounds; No Tenderness; No Distention Extremities: No Clubbing, Cyanosis, - - lower ext with +1 pitting edema Skin: No Rash or Ulcers Neurological: - - some short term memory deficits Nutrition: Taking PO's Result Diagrams: 08/24/17 05:06 08/25/17 05:29 Additional Lab and Data: Lab Results Microbiology and Other Data: Microbiology 08/18/17 12:57 Stool Occult Blood (TYLER) - Final Stool Assess/Plan/Problems-Billing Assessment: Patient is a 67yo female with a PMH significant for recurrent UTI, CAD, [place], HTN , RA and COPD who presents with bilateral flank pain and UTI /pyelonephritis - Patient Problems (1) Altered mental status Status: Acute Code(s): R41.82 - ALTERED MENTAL STATUS, UNSPECIFIED SNOMED Code(s): 715354029 Comment: resolved, Likely due to delirium from UTI. Pt still showing short term memory deficits- very forgetful- may be at baseline (2) Anemia Status: Acute Code(s): D64.9 - ANEMIA, UNSPECIFIED SNOMED Code(s): 019165597 Comment: Hgb 11.2 on admitting labs but baseline appears to be closer to 9 and 10 Perhaps element of hemoconcentration secondary to dehydration on admission Stool occult negative according to iron studies pt has normocytic, iron defficiency anemia and anemia of chronic disease. Low iron - started ferrous sulfate s/p 1 unit PRBC on 08/19, given cardiac hx and hypoxia (3) CHF exacerbation Status: Acute Code(s): I50.9 - HEART FAILURE, UNSPECIFIED SNOMED Code(s): 61763939 Comment: Baseline wt ~190 per patient, Weight today was 195 down from 200 will continue home Lasix today Echo showed EF 60-65%. (4) Endocarditis Status: Acute Code(s): I38 - ENDOCARDITIS, VALVE UNSPECIFIED SNOMED Code(s) : 36868387 Comment: pt has 1.7 cm vegetation on mitral valve, consistent with Strep gallolyticus endocarditis and will require a total of 28 days of IV ceftriaxone she refuses STR. PICC placed. Plan to d/c home and cont home infusions once medically stable Will discharge home today (5) Hypomagnesemia Status: Acute Code(s): E83.42 - HYPOMAGNESEMIA SNOMED Code(s): 170174556 Comment: IV/PO repletion (6) Atrial fibrillation Status: Chronic Code(s): I48.91 - UNSPECIFIED ATRIAL FIBRILLATION SNOMED Code(s): 55453323 Comment: Afib with RVR with NSVT noted on 08/20/17, recurred on 08/23/17 and amiodarone started. (converted after a dose of IV digoxin) . now in NSR. Cardiology consult appreciated . Propafenone stopped due to prolonged QT. cont BB, cont cardizem, amiodarone will discharge on Amiodarone 200 mg po BID along with cardizem and BB (7) Full code status Status: Acute Code(s): Z78.9 - OTHER SPECIFIED HEALTH STATUS SNOMED Code(s) : 475860639 (8) DVT prophylaxis Status: Acute Code(s): XOY6806 - SNOMED Code(s): 115256419 Comment: Continue Eliquis. Status and Disposition: inpatient. Pt refuses to go to [facility], but is very weak. could go home in AM, but will request another PT/OT eval prior to discharge. home infusion for Caftriaxone arranged-will discharge home today
--- NOTE | 2017-08-26 15:30 | DS ---
DISCHARGE SUMMARY: DATE OF ADMISSION: 08/14/17 DATE OF DISCHARGE: 08/25/17 PROVIDER: Krysten Montelongo NP PRIMARY CARE PROVIDER: Dr. Toledo. ATTENDING PHYSICIAN: Dr. Stalin Wetzel * (dictated by Krysten Montelongo NP). PRIMARY DIAGNOSES: 1. 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 2. Urinary tract infection. 3. Altered mental status. SECONDARY DIAGNOSES: 1. Coronary artery disease. 2. Myocardial infarction. 3. Hypertension. 4. Rheumatoid arthritis. 5. Chronic obstructive pulmonary disease. 6. Atrial fibrillation. 7. Dementia. 8. History of staghorn renal calculi. STUDIES COMPLETED WHILE IN THE HOSPITAL: On 08/14/17, she had a renal ultrasound. Radiologist's impression: No hydronephrosis of either kidney, although the right kidney is limited in evaluation due to body habitus. Bilateral ureteral jets are identified. She had a chest x-ray on 08/17/17. Radiologist's impression was suspect mild vascular congestion. She had a repeat chest x-ray on 08/17/17 that evening at 1947, vascular congestion was mild worsening. She had a transthoracic echo on 08/18/17, conclusion: Global left ventricular wall motion and contractility are within normal limits. Normal left ventricular systolic function, estimated ejection fraction 60% to 65%. Right ventricular chamber size and systolic function are within normal limits. There is no evidence of aortic stenosis. The anterior leaflet of the mitral valve is thickened. There is severe thickening and restriction towards the annulus and prolapse towards the tip. The prolapse of the anterior leaflet of the mitral valve, there is a trace mitral regurg, there is trace tricuspid regurg. There is evidence of mild-to- moderate pulmonary hypertension. There is no significant pericardial infusion. A left pleural effusion is present. The ascending aorta is not visualized. MIKIE was recommended for better visualization of the mitral valve. MIKIE was completed on 08/19/17. Conclusion: Mild concentric left ventricular hypertrophy is observed. Global left ventricular wall motion and contractility is within normal limits, as estimated ejection fraction is 55% to 60%. Right ventricle chamber size and systolic function are within normal limits. Aortic valve is a trileaflet. There is no aortic vegetation present. Mass visualized on the mitral valve, which appears to be consistent with a vegetation. Vegetation os located on the anterior mitral leaflet, spanning both sides, is irregular measures, the largest from a 2 - chamber view of 1.7 cm x 1.0 cm. There is mild moderate regurgitation, lateral and posterior wall jets. There is mild to moderate tricuspid regurg. There is evidence of mild to moderate pulmonary hypertension 47 mmHg. No vegetation is observed on the tricuspid or pulmonic valves. Mitral valve vegetation newly confirmed. The degree of MR has increased from mild PA pressure is stable. She also had an abdominal and bladder ultrasound on 08/18/17. Radiologist's impression: Slight degree of right-sided cortical thinning relative to the left and otherwise normal-appearing kidneys bilaterally, the presence of a Calle catheter prevents more physiologic evaluation of the urinary bladder. The urinary bladder does not exhibit any obvious abnormalities. Uro jets are recorded bilaterally. DISCHARGE MEDICATIONS: The patient will be discharged home on: 1. Ceftriaxone 2 g IV daily. 2. Amiodarone 200 mg p.o. b.i.d. 3. Ferrous sulfate 325 mg p.o. daily. Continued home medications: 1. She will continue albuterol HFA inhaler 2 puffs q.4 hours as needed for shortness of breath. 2. Fosamax 70 mg p.o. weekly. 3. Allopurinol 100 mg p.o. q.a.m. 4. Amiodarone as above. 5. Eliquis 5 mg p.o. b.i.d. 6. Lipitor 20 mg p.o. daily. 7. Vitamin B12 1000 mcg p.o. daily. 8. Flexeril 10 mg p.o. b.i.d. 9. Cardizem 180 mg p.o. daily. 10. Aricept 10 mg p.o. daily. 11. Ferrous sulfate 325 mg p.o. daily. 12. Breo Ellipta 100/25 one puff q.a.m. 13. Furosemide 40 mg p.o. q.a.m. 14. Hydrocodone/acetaminophen 5/325 one q.6 hours as needed for pain. 15. Lisinopril 2.5 mg p.o. daily. 16. Mag-Oxide 800 mg p.o. daily. 17. Hiprex 1 g p.o. b.i.d. 18. Zaroxolyn 2.5 mg Tuesdays and . 19. Metoprolol 100 mg p.o. q.a.m. 20. Potassium chloride 10 mEq p.o. daily. 21. Zantac 150 mg p.o. b.i.d. Discontinued home medications were Rythmol. HISTORY OF PRESENT ILLNESS AND HOSPITAL COURSE: Ms. Cotto is a 67-year-old female with a well known history of nephrolithiasis. She also has a history of CAD, GA, hypertension, rheumatoid arthritis, also carries a history of COPD, AFib post ablation with multiple rate controlling agents and Eliquis, history of skin cancer, dementia, and staghorn renal calculi. She comes to the ER stating the family noticed that at least over the last week she had been not acting herself, which is her typical of her UTI symptoms. She becomes confused , she becomes weak what she is both experiencing. She has been having intermittent right-sided flank pain over the past week, was worst over the last couple of days. She has had some chills, but has not had any documented fevers. There has been no hesitancy. Family was concerned, so they brought her to the emergency room for evaluation. She was at home on antibiotics, but she came into the ED today, still having a fair amount of pain. It was noticed that her blood pressure was 90 systolic and she was a little tachycardic. There were concerned that she may be developing some hydronephrosis or obstruction. She had a low-grade fever of 99.4 on admission. She denies any chest pain or shortness of breath. There had been no URI symptoms, but because of possible UTI and possible pyelonephritis, we were asked to evaluate her for admission. During her hospitalization, she had continued to have routine lab work. She was found to have endocarditis affecting the mitral valve with a vegetation noted on a MIKIE. Infectious Disease was consulted, which recommended ceftriaxone 2 g IV q.24 hours for her total of 28 days. She will need to have weekly CBC, CMP, and a CRP. She has remained afebrile throughout her hospitalization. She did have an event of tachycardia and we consulted Cardiology. She was taken off her Rythmol and placed on amiodarone 200 mg b.i.d. for rate control. The Rythmol was also discontinued due to increased QTc. Urine culture on 08/14 showed E. coli. Urine at 1408, a culture from at 23:25 completed, showed no growth. She did have blood cultures drawn, which showed no growth x5 days. She had a stool occult for blood that was negative x2. On 08/25/17, her potassium was 4.4, sodium was 135, chloride was 96, glucose was 104. WBCs were 4.9. Her H and H was 9 and 28, which seems to be improving since her admission. Platelet count was 263. Due to her mild congestive heart failure, she was given a dose of IV Lasix during her hospitalization and placed back on her Lasix 40 mg p.o. Her initial weight was 200 pounds. Weight on 08/25/17 was 195. At this time, I feel Ms. oCtto is stable for discharge home. Ms. Cotto is stable for discharge home today. Vital signs are as follows: Temp was 98.1, heart rate was 85, respirations 18, O2 saturation was 99% on room air, blood pressure 114/41. DISCHARGE PLAN: 1. Ms. Cotto will be discharged back home. 2. Activity as tolerated. 3. She should continue on a low-sodium, heart-healthy diet. 4. In regards to her heart failure, she needs to have daily weights, any weight gain of more than 2 to 3 pounds needs to be reported to her primary care provider, so her diuretics can be adjusted as necessary. 5. As far the endocarditis, she will continue on ceftriaxone 2 g q.24 hours times a total of 28 days. Today was day #11. She will need a a weekly CBC, CMP , and CRP with report to Dr. Toro for followup. She should follow up with her primary care provider, Dr. Janes Toledo in 1 to 3 days. She should follow up with her italian teacher, Dr. Luis Land in 4 to 7 days and she should call Dr. Toro's office for follow up appointment. 6. She will need a repeat MIKIE after completion of her antibiotics. 7. The patient was instructed to return to the emergency room for any increased chest pain, shortness of breath, or any worsening in her symptoms.) This is a summary complex medical history and hospitalization. For further details, please see the entire medical record. TIME SPENT: Time spent on this discharge was approximately 60 minutes, greater than half that time was spent with the patient discussing her discharge plans and instructions. CONDITION ON DISCHARGE: Stable. KRYSTEN MONTELONGO NP [id number]/[facility] #: [id number]
== END 2017-08-25 17:51 | disposition home health service (06) | DRG 288 ==
LOC: ED 11:46 → MED 16:08 → OBSVTOIN 08-15 11:39 → MEDTELE 08-20 09:40 → ICU 08-20 16:33 → MEDTELE 08-21 16:45
PROVIDERS: ADMIT Internal Medicine; ATTEND Internal Medicine
PROC: 30233N1 Transfusion of Nonautologous Red Blood Cells into Peripheral Vein, Percutaneous Approach (ICD-10-PCS; 2017-08-19)
PROC: B24BZZ4 Ultrasonography of Heart with Aorta, Transesophageal (ICD-10-PCS; 2017-08-20)
PROC: 02HV33Z Insertion of Infusion Device into Superior Vena Cava, Percutaneous Approach (ICD-10-PCS; principal; 2017-08-21)
DX: I33.0 Acute and subacute infective endocarditis (principal); G93.40 Encephalopathy, unspecified; I47.2 Ventricular tachycardia; I95.9 Hypotension, unspecified; I27.20 Pulmonary hypertension, unspecified; I11.0 Hypertensive heart disease with heart failure; E83.42 Hypomagnesemia; I48.0 Paroxysmal atrial fibrillation; I50.9 Heart failure, unspecified; N12 Tubulo-interstitial nephritis, not specified as acute or chronic; I08.1 Rheumatic disorders of both mitral and tricuspid valves; E86.0 Dehydration; N28.1 Cyst of kidney, acquired; Z86.74 Personal history of sudden cardiac arrest; B95.4 Other streptococcus as the cause of diseases classified elsewhere; B96.20 Unspecified Escherichia coli [E. coli] as the cause of diseases classified elsewhere; Z99.81 Dependence on supplemental oxygen; J44.9 Chronic obstructive pulmonary disease, unspecified; E78.00 Pure hypercholesterolemia, unspecified; G47.30 Sleep apnea, unspecified; M06.9 Rheumatoid arthritis, unspecified; M81.0 Age-related osteoporosis without current pathological fracture; E66.9 Obesity, unspecified; M19.90 Unspecified osteoarthritis, unspecified site; F03.90 Unspecified dementia, unspecified severity, without behavioral disturbance, psychotic disturbance, mood disturbance, and anxiety; I25.10 Atherosclerotic heart disease of native coronary artery without angina pectoris; Z96.643 Presence of artificial hip joint, bilateral; R09.02 Hypoxemia; D50.9 Iron deficiency anemia, unspecified; R41.82 Altered mental status, unspecified; D63.8 Anemia in other chronic diseases classified elsewhere; Z96.652 Presence of left artificial knee joint; T46.2X5A Adverse effect of other antidysrhythmic drugs, initial encounter; Y92.239 Unspecified place in hospital as the place of occurrence of the external cause; H26.9 Unspecified cataract; Z88.1 Allergy status to other antibiotic agents; Z88.8 Allergy status to other drugs, medicaments and biological substances; Z87.442 Personal history of urinary calculi; Z82.49 Family history of ischemic heart disease and other diseases of the circulatory system; Z98.41 Cataract extraction status, right eye; Z79.01 Long term (current) use of anticoagulants; I25.2 Old myocardial infarction; Z85.828 Personal history of other malignant neoplasm of skin; Z90.49 Acquired absence of other specified parts of digestive tract; Z68.38 Body mass index [BMI] 38.0-38.9, adult
CPT/HCPCS: 36415; 71045; 76770; 76775; 80048; 80053; 81003; 81015; 82272; 82607; 82728; 82746; 83540; 83550; 83605; 83735; 83880; 84484; 85014; 85018; 85025; 85610; 86850; 86900; 86901; 86922; 87040; 87077; 87086; 87186; 90732; 93005; 93306; 93312; 93325; 94640; 94760; 96374; 99156; 99157; 99284; A9270-GY; C1751; J0696; J1160; J1170; J1940; J2250; J2270; J2310; J3010; J3475; J3480; J3490; P9040